=== PATIENT | female | born 1960 | race Caucasian/White ===

== ENCOUNTER 2016-12-18 10:23 | Day surgery (SDC) | payer MEDICAID ==
[2016-12-18] MEDS ORDERED: LIDOCAINE 1% 2 ML INJ ONE (10:59)
[2016-12-18] MEDS ORDERED: LIDOCAINE 2% 5 ML SDV ONE (11:44)
[2016-12-18] MEDS ORDERED: PROPOFOL/EMULSION 500 MG/50 ML BOTTLE IV ONE (11:44)
[2016-12-18] MEDS ORDERED: ONDANSETRON 4 MG/2 ML VIAL ONE (12:24)
--- NOTE | 2016-12-18 20:43 | GPN ---
[f rep st] PROCEDURE NOTE DATE OF PROCEDURE: 12/18/2016 PROCEDURE: Esophagogastroduodenoscopy with biopsy. INDICATION: The patient is a 56-year-old female with history of liver cirrhosis , who presents for evaluation of heartburn, as well as screening for esophageal varices. CONSENT: Risks, benefits, and alternatives of the procedure were discussed in great detail with the patient. The risk of infection, bleeding, perforation, and sedation were discussed. All questions were answered. Informed consent was obtained. MEDICATIONS: Propofol. Please see Anesthesiology record for details. ESTIMATED BLOOD LOSS: Insignificant. ESOPHAGOGASTRODUODENOSCOPY EXAMINATION: The Olympus upper endoscope was introduced into the mouth and advanced to the esophagus. The proximal and mid esophagus were normal in appearance. The patient was noted to have a slightly irregular Z-line which may represent short-segment Varghese's esophagus. Biopsies were taken. The patient was noted to have grade 1 esophageal varices with complete which were completely flattened with air insufflation. The stomach was entered and closely examined, including retroflexed view of the angularis, cardia, and fundus. The patient was noted to have a small hiatal hernia. The mucosa of the antrum and body was erythematous in a patchy distribution and biopsies were taken. In the duodenal bulb, 2 small duodenal polyps of 2-3mm were seen and removed by excisional biopsies. IMPRESSION: 1. Grade 1 esophageal varices. 2. Irregular Z-line status post biopsy. 3. Gastritis, status post biopsy. 4. Duodenal polyp status post biopsies. PLAN: 1. Follow up on biopsy results. 2. Advance diet. 3. Continue previous medications. 4. Repeat EGD in 1 year. /[id number]/MODL MTDD
== END 2016-12-18 13:38 | disposition home or self-care (01) ==
LOC: FSGY 10:23
PROVIDERS: ATTEND Internal Medicine Gastroenterology
PROC: 0DB68ZX Excision of Stomach, Via Natural or Artificial Opening Endoscopic, Diagnostic (ICD-10-PCS; principal; 2016-12-18 11:45)
PROC: 0DB98ZX Excision of Duodenum, Via Natural or Artificial Opening Endoscopic, Diagnostic (ICD-10-PCS; principal; 2016-12-18 11:45)
PROC: 0DB48ZX Excision of Esophagogastric Junction, Via Natural or Artificial Opening Endoscopic, Diagnostic (ICD-10-PCS; principal; 2016-12-18 11:45)
DX: K31.7 Polyp of stomach and duodenum (principal); K29.70 Gastritis, unspecified, without bleeding; K44.9 Diaphragmatic hernia without obstruction or gangrene; I85.00 Esophageal varices without bleeding; K70.30 Alcoholic cirrhosis of liver without ascites; I10 Essential (primary) hypertension; E03.9 Hypothyroidism, unspecified; K21.9 Gastro-esophageal reflux disease without esophagitis; F17.210 Nicotine dependence, cigarettes, uncomplicated
CPT/HCPCS: J2405; J2704

== ENCOUNTER 2017-03-24 12:58 | Inpatient (IN) | payer MEDICAID ==
[2017-03-24] MEDS ORDERED: NS 1,000 ML IV ONE (13:47)
--- NOTE | 2017-03-24 13:51 | EDPHY ---
H & P Stated Complaint: Dr. Nava sent pt to ED for abnl liver fn labs yesterday. pt feels slow. Time Seen by Provider: 03/24/17 13:14 HPI/ROS: CHIEF COMPLAINT: feeling slow HISTORY OF PRESENT ILLNESS: The patient is a 56-year-old female with a history of alcoholic cirrhosis who is followed by Dr. Bailey. She stopped drinking 10 weeks ago at his encouragement. Initially her LFTs were improving but she had them repeated yesterday and today Dr. Bailey called her and told her to come to the ER and get admitted. She has not had a fever. She does feel weak and states that she has fallen several times. She did hit her head this morning. She feels unstable. She has also had urinary incontinence for the last 3 weeks. She is slightly jaundice and has a variety of bruises. REVIEW OF SYSTEMS: Constitutional: denies: chills, fever, recent illness, recent injury EENTM: denies: blurred vision, double vision, nose congestion Respiratory: denies: cough, shortness of breath Cardiac: denies: chest pain, irregular heart rate, lightheadedness, palpitations Gastrointestinal/Abdominal: denies: abdominal pain, diarrhea, nausea, vomiting, blood streaked stools Genitourinary: denies: dysuria, frequency, hematuria, pain Musculoskeletal: denies: joint pain, muscle pain Skin: Jaundice Neurological: denies: headache, numbness, paresthesia, tingling, dizziness, weakness Hematologic/Lymphatic: denies: blood clots, easy bleeding, easy bruising Immunologic/allergic: denies: HIV/AIDS, transplant EXAM: GENERAL: Well-appearing, well-nourished and in no acute distress. HEAD: Atraumatic, normocephalic. EYES: Pupils equal round and reactive to light, extraocular movements intact, sclera icteric, conjunctiva are normal. ENT: TMs normal, nares patent, oropharynx clear without exudates. Moist mucous membranes. NECK: Normal range of motion, supple without lymphadenopathy or JVD. LUNGS: Breath sounds clear to auscultation bilaterally and equal. No wheezes rales or rhonchi. HEART: Regular rate and rhythm without murmurs, rubs or gallops. ABDOMEN: Soft, nontender, normoactive bowel sounds. No guarding, no rebound. No masses appreciated. BACK: No CVA tenderness, no spinal tenderness, step-offs or deformities EXTREMITIES: No asterixis, Normal range of motion, no pitting or edema. No clubbing or cyanosis. NEUROLOGICAL: Cranial nerves II through XII grossly intact. Normal speech, normal gait. 5/5 strength, normal movement in all extremities, normal sensation PSYCH: Normal mood, normal affect. SKIN: Jaundice with bruising Source: Patient Exam Limitations: No limitations - Personal History LMP (Females 10-55): Post Menopausal Current Tetanus/Diphtheria Vaccine: Yes Current Tetanus Diphtheria and Acellular Pertussis (TDAP): Yes Tetanus Vaccine Date: 2015 - Medical/Surgical History Hx Asthma: No Hx Chronic Respiratory Disease: No Hx Diabetes: No Hx Cardiac Disease: No Hx Renal Disease: No Hx Cirrhosis: Yes Hx Alcoholism: Yes Hx HIV/AIDS: No Hx Splenectomy or Spleen Trauma: No Other PMH: cirhossis, hypothyroid, depression, anxiety - Family History Significant Family History: No pertinent family hx - Social History Smoking Status: Heavy smoker Alcohol Use: Sober Drug Use: None Constitutional: Initial Vital Signs Temperature (C) 36.7 C 03/24/17 13:20 Heart Rate 66 03/24/17 13:20 Respiratory Rate 16 03/24/17 13:20 Blood Pressure 103/59 L 03/24/17 13:20 O2 Sat (%) 94 03/24/17 13:20 O2 Delivery Mode Room Air Allergies/Adverse Reactions: codeine Allergy (Verified 03/24/17 13:16) Vomiting Penicillins Allergy (Verified 03/24/17 13:16) Other-Enter Comments Home Medications: Medication Instructions Recorded Acamprosate Calcium [Campral 333 666 mg PO TID 03/24/17 MG (*)] Atenolol [Tenormin 100 mg (*)] 100 mg PO HS 03/24/17 Herbals/Supplements -Info Only 1 ea PO DAILY 03/24/17 Levothyroxine [Synthroid 75 mcg 75 mcg PO DAILY06 03/24/17 (*)] Naltrexone HCl 50 mg PO DAILY 03/24/17 Omeprazole 40 mg PO DAILY 03/24/17 Potassium Chloride [K-Tab ER] 20 meq PO DAILY 03/24/17 Prozac 40 mg 80 mg PO DAILY 03/24/17 Temazepam 7.5 mg PO HS 03/24/17 Medical Decision Making - Diagnostics EKG Interpretation: An EKG obtained and was read and documented in trace view. Please see trace view for full reading and report. Sinus rhythm, mild bradycardia, no acute ischemic changes Imaging Results: Imaging Impressions Head CT 03/24/17 13:48 Impression: 1. No acute intracranial abnormality seen. 2. Involutional changes/atrophy. This can be seen with chronic alcohol abuse. If symptoms worsen, additional imaging may be necessary. Findings discussed with the periodicals library assistant with Haja Harrington M.D. at 14:28 hour , 03/24/2017. Ankle X-Ray 03/24/17 13:57 Impression: Normal right ankle series. Suboptimal visualization of the base of the right fifth metatarsal. If the patient is tender in this region then consider additional foot imaging. Imaging: Discussed imaging studies w/ orthopedically impaired teacher Radiologist ED Course/Re-evaluation: 3:30 p.m. I discussed the case with Dr. Sanchez who will admit to medical service. He agrees with lactulose because of the patient's mental status Differential Diagnosis: Partial list of the Differential diagnosis considered include but were not limited to; dehydration, cirrhosis, hepatic encephalopathy and although unlikely based on the history and physical exam, I also considered sepsis, head injury, pneumonia, fracture. I discussed these differential diagnoses and the plan with the patient as well as the usual and expected course. The patient understands that the diagnosis is provisional and that in medicine we are not always correct and that further workup is often warranted. Usual and customary warnings were given. All of the patient's questions were answered. The patient was instructed to return to the emergency department should the symptoms at all worsen or return, otherwise to followup with the physician as we discussed. - Data Points Laboratory Results: Laboratory Results 03/24/17 13:50 03/24/17 13:50 03/24/17 03/24/17 03/24/17 15:45 14:50 13:50 WBC RBC Hgb Hct MCV MCH MCHC RDW Plt Count MPV Neut % (Auto) Lymph % (Auto) [place] % (Auto) Eos % (Auto) Baso % (Auto) Nucleat RBC Rel Count Absolute Neuts (auto) Absolute Lymphs (auto) Absolute Monos (auto) Absolute Eos (auto) Absolute Basos (auto) Absolute Nucleated RBC Immature Gran % Immature Gran # Platelet Estimate Polychromasia Hypochromasia Spherocytes PT INR APTT Sodium 138 mEq/L mEq/L (134-144) Potassium 3.2 mEq/L L mEq/L (3.5-5.2) Chloride 103 mEq/L mEq/L (97-110) Carbon Dioxide 19 mEq/l L mEq/l (22-31) Anion Gap 16 mEq/L mEq/L (8-16) BUN 4 mg/dL L mg/dL (7-23) Creatinine 0.7 mg/dL mg/dL (0.6-1.0) Estimated GFR > 60 Glucose 95 mg/dL mg/dL (70-100) Calcium 8.9 mg/dL mg/dL (8.5-10.4) Total Bilirubin 8.5 mg/dL H mg/dL (0.1-1.4) Conjugated Bilirubin 4.6 mg/dL H mg/dL (0.0-0.5) Unconjugated Bilirubin 3.9 mg/dL H mg/dL (0.0-1.1) AST 87 IU/L H IU/L (14-46) ALT 38 IU/L IU/L (9-52) Alkaline Phosphatase 179 IU/L H IU/L (38-126) Ammonia 33.0 uMOL/L H uMOL/L (9.0-30.0) Total Protein 8.2 g/dL g/dL (6.3-8.2) Albumin 3.2 g/dL L g/dL (3.5-5.0) Lipase 179 IU/L IU/L (23-300) Urine Color MELO Urine Appearance CLEAR Urine pH 6.0 (5.0-7.5) Ur Specific [place] 1.003 (1.002-1.030) Urine Protein NEGATIVE (NEGATIVE) Urine Ketones NEGATIVE (NEGATIVE) Urine Blood NEGATIVE (NEGATIVE) Urine Nitrate NEGATIVE (NEGATIVE) Urine Bilirubin NEGATIVE (NEGATIVE) Urine Urobilinogen 4.0 EU H EU (0.2-1.0) Ur Leukocyte Esterase NEGATIVE (NEGATIVE) Urine RBC 3-5 /hpf H /hpf (0-3) Urine WBC 1-3 /hpf /hpf (0-3) Ur Epithelial Cells NONE SEEN /lpf /lpf (NONE-1+) Urine Bacteria TRACE /hpf H /hpf (NONE SEEN) Urine Glucose NEGATIVE (NEGATIVE) 03/24/17 03/24/17 13:50 13:50 WBC 3.83 10^3/uL 10^3/uL (3.80-9.50) RBC 2.89 10^6/uL L 10^6/uL (4.18-5.33) Hgb 8.9 g/dL L g/dL (12.6-16.3) Hct 27.4 % L % (38.0-47.0) MCV 94.8 fL fL (81.5-99.8) MCH 30.8 pg pg (27.9-34.1) MCHC 32.5 g/dL g/dL (32.4-36.7) RDW 22.4 % H % (11.5-15.2) Plt Count 76 10^3/uL L 10^3/uL (150-400) MPV 10.2 fL fL (8.7-11.7) Neut % (Auto) 64.2 % % (39.3-74.2) Lymph % (Auto) 23.0 % % (15.0-45.0) [place] % (Auto) 9.4 % % (4.5-13.0) Eos % (Auto) 2.6 % % (0.6-7.6) Baso % (Auto) 0.8 % % (0.3-1.7) Nucleat RBC Rel Count 0.0 % % (0.0-0.2) Absolute Neuts (auto) 2.46 10^3/uL 10^3/uL (1.70-6.50) Absolute Lymphs (auto) 0.88 10^3/uL L 10^3/uL (1.00-3.00) Absolute Monos (auto) 0.36 10^3/uL 10^3/uL (0.30-0.80) Absolute Eos (auto) 0.10 10^3/uL 10^3/uL (0.03-0.40) Absolute Basos (auto) 0.03 10^3/uL 10^3/uL (0.02-0.10) Absolute Nucleated RBC 0.00 10^3/uL 10^3/uL (0-0.01) Immature Gran % 0.0 % % (0.0-1.1) Immature Gran # 0.00 10^3/uL 10^3/uL (0.00-0.10) Platelet Estimate DECREASED L (ADEQ) Polychromasia 1+ H Hypochromasia 1+ H Spherocytes 1+ H PT 25.5 SEC H SEC (12.0-15.0) INR 2.30 H (0.83-1.16) APTT 45.6 SEC H SEC (23.0-38.0) Sodium Potassium Chloride Carbon Dioxide Anion Gap BUN Creatinine Estimated GFR Glucose Calcium Total Bilirubin Conjugated Bilirubin Unconjugated Bilirubin AST ALT Alkaline Phosphatase Ammonia Total Protein Albumin Lipase Urine Color Urine Appearance Urine pH Ur Specific [place] Urine Protein Urine Ketones Urine Blood Urine Nitrate Urine Bilirubin Urine Urobilinogen Ur Leukocyte Esterase Urine RBC Urine WBC Ur Epithelial Cells Urine Bacteria Urine Glucose Medications Given: Discontinued Medications Sodium Chloride (Ns) 1,000 mls @ 0 mls/hr IV EDNOW ONE; Wide Open PRN Reason: Protocol Stop: 03/24/17 13:48 Last Admin: 03/24/17 13:55 Dose: 1,000 mls Phytonadione 10 mg/ Sodium (Chloride) 51 mls @ 102 mls/hr IV ONCE ONE Stop: 03/24/17 17:07 Last Admin: 03/24/17 17:43 Dose: 51 mls Lactulose (Cephulac) 20 gm PO EDNOW ONE Stop: 03/24/17 15:38 Last Admin: 03/24/17 15:58 Dose: 20 gm Departure - Departure Disposition: [facility] Inpatient Acute Clinical Impression: Cirrhosis of liver Qualifiers: Hepatic cirrhosis type: alcoholic cirrhosis Ascites presence: without ascites Qualified Code(s): K70.30 - Alcoholic cirrhosis of liver without ascites Altered mental status, unspecified Qualifiers: Altered mental status type: disorientation Qualified Code(s): R41.0 - Disorientation, unspecified Condition: Fair
[2017-03-24 14:01] LABS: ADD DIFF? NO; ADD MORPH? YES; ADD SCAN? NO; ATYPICAL LYMPHOCYTE FLAG 10 (0-99); FRAGMENT RBC FLAG 20 (0-99); HEMATOCRIT 27.4 % (38.0-47.0); HEMOGLOBIN 8.9 g/dL (12.6-16.3); LEFT SHIFT FLG 0 (0-99); LIPEMIA HEMOLYSIS FLAG 80 (0-99); MEAN CELL HEMOGLOBIN 30.8 pg (27.9-34.1); MEAN CELL HEMOGLOBIN CONCENTR. 32.5 g/dL (32.4-36.7); MEAN CELL VOLUME 94.8 fL (81.5-99.8); MEAN PLATELET VOLUME 10.2 fL (8.7-11.7); PLATELET CLUMPS FLAG 0 (0-99); PLATELET COUNT 76 10^3/uL (150-400); RED BLOOD CELL COUNT 2.89 10^6/uL (4.18-5.33)
[2017-03-24 14:02] LABS: RED CELL DISTRIBUTION WIDTH 22.4 % (11.5-15.2)
[2017-03-24 14:10] LABS: ALANINE AMINOTRANSFERASE 38 IU/L (9-52); ALBUMIN 3.2 g/dL (3.5-5.0); ALKALINE PHOSPHATASE 179 IU/L (38-126); ANION GAP 16 mEq/L (8-16); APTT 45.6 SEC (23.0-38.0); ASPARTATE AMINOTRANSFERASE 87 IU/L (14-46); BILIRUBIN,TOTAL 8.5 mg/dL (0.1-1.4); BILIRUBIN-CONJUGATED 4.6 mg/dL (0.0-0.5); BILIRUBIN-UNCONJUGATED 3.9 mg/dL (0.0-1.1); CALCIUM 8.9 mg/dL (8.5-10.4); CARBON DIOXIDE 19 mEq/l (22-31); CHLORIDE 103 mEq/L (97-110); CREATININE 0.7 mg/dL (0.6-1.0); GLOMERULAR FILTRATION RATE > 60; GLUCOSE 95 mg/dL (70-100); INR 2.3 (0.83-1.16); POTASSIUM 3.2 mEq/L (3.5-5.2); PROTIME(PATIENT) 25.5 SEC (12.0-15.0); SODIUM 138 mEq/L (134-144); TOTAL PROTEIN 8.2 g/dL (6.3-8.2)
[2017-03-24 14:30] LABS: HYPOCHROMIA 1+; PLATELET ESTIMATE DECREASED (ADEQ); SPHEROCYTES 1+
[2017-03-24 14:31] LABS: POLYCHROMASIA 1+
--- NOTE | 2017-03-24 15:16 | CPEKG ---
Heart Rate: 57 RR Interval: 1053 P-R Interval: 176 QRSD Interval: 108 QT Interval: 544 QTC Interval: 530 P Arcade: 52 QRS Arcade: -4 T Wave Arcade: -2 EKG Severity - ABNORMAL ECG - EKG Impression: SINUS RHYTHM EKG Impression: BORDERLINE R WAVE PROGRESSION, ANTERIOR LEADS EKG Impression: NONSPECIFIC T ABNORMALITIES, LATERAL LEADS EKG Impression: PROLONGED QT INTERVAL Electronically Signed By: Haja Harrington 24-Mar-2017 15:24:27
[2017-03-24] MEDS ORDERED: LACTULOSE 20 GM/30 ML UDCUP PO ONE (15:37)
[2017-03-24 16:11] LABS: COLOR AMBER; LEUKOCYTE ESTERASE,URINE NEGATIVE (NEGATIVE); NITRITE,URINE NEGATIVE (NEGATIVE)
[2017-03-24 16:18] LABS: BACTERIA TRACE /hpf (NONE SEEN)
[2017-03-24] MEDS ORDERED: ONDANSETRON 4 MG/2 ML VIAL IVP PRN (16:30)
[2017-03-24] MEDS ORDERED: ONDANSETRON DISINTEGRATING 4 MG TAB PO PRN (16:30)
[2017-03-24] MEDS ORDERED: PHYTONADIONE 10 MG in NS 50 ML IV ONE (16:38)
--- NOTE | 2017-03-24 17:22 | GHP ---
[f rep st] HISTORY AND PHYSICAL DATE OF ADMISSION: 03/24/2017 The patient is a pleasant 56-year-old female with history of alcoholic cirrhosis, who quit drinking 10 weeks ago. She saw her machine oiler, Dr. Nava, yesterday, who laurent some routine labs and call ed her back today to return to the emergency department for admission. These labs were notable for having an ammonia level at 63. She does not take lactulose or rifaximin for hepatic encephalopathy prophylaxis. 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 She has had some falls . She has had gait instability. She has had hematuria and urinary incontinence. She has not had f ever, chills, cough. She has not had chest pain or shortness of breath. She maintains abstinence f rom alcohol. She has dabbled in marijuana but does not particularly enjoy it. While she has been p rescribed a lot of new medicines, she denies other recreational drugs. She has not particularly not iced an increased girth in her abdomen. She has had some lower extremity swelling but a lot of this is related to a right ankle sprain. It sounds like she has had a numerous falls and countless brui ses and has even fallen down the stairs backwards. REVIEW OF SYSTEMS: Complete 10-point Review of Systems conducted and negative except as noted in th e HPI. PAST MEDICAL HISTORY: 1. Alcoholism in remission. 2. Alcoholic liver disease. ALLERGIES: Codeine and penicillin. HOME MEDICATIONS: Atenolol, Campral, X-Cam, fluoxetine, levothyroxine, naltrexone, omeprazole, pota ssium, temazepam. SOCIAL HISTORY: Alcohol as in the HPI. Drugs in the HPI. Nonsmoker. 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 FAMILY HISTORY: Reviewed and unremarkable. PHYSICAL EXAMINATION: VITAL SIGNS: Temp 36.7, blood pressure 103/59, pulse 66, breathing 16 times a minute, 94% on room air. GENERAL: No acute distress. HEENT: Sclerae anicteric. Oropharynx honey ar. Mucous membranes are moist. NECK: Supple without lymphadenopathy or JVD. LUNGS: Clear to au scultation bilaterally. HEART: S1, S2. Not tachycardic. ABDOMEN: Soft. I do not believe that t here is a fluid wave. LOWER EXTREMITIES: 1+ edema on the left and 2+ on the right. There is some ankle tenderness. SKIN: Without rash. NEUROLOGIC: No asterixis. Otherwise nonfocal. LABS: Her INR is 2.3. White count 3.8, hematocrit 27.4[place] [address], this is about where s he has been. Sodium 138, potassium 3.2, chloride 103, bicarb 19, BUN 4, creatinine 0.7. Total bili paredes is 8.5; conjugated 4.6, unconjugated 3.9. AST is 87, alk phosphatase 179. Ammonia is 33 toda y. Albumin is 3.2. Lipase 179. UA is pending. Noncontrast head CT shows atrophy with no acute lesions. EKG shows sinus in 50s with normal axis an d intervals. No ST or T-wave changes. Ankle x-ray shows no fracture. I discussed the case Dr. Haja Harrington. ASSESSMENT AND PLAN: This is a 56-year-old female with alcoholic cirrhosis, who presents with confu ralph and worsening labs. 1. Cirrhosis. This is concerning for possible portal vein thrombosis. I will go ahead and do an u ltrasound with Dopplers to evaluate for that. The patient does not have asterixis but I think it is reasonable to treat her for hepatic encephalopathy. She does not have significant ascites on exam, so while I have considered spontaneous bacterial peritonitis, will wait for the ultrasound results and see if there is any significant ascites. I do not think she is intoxicated. Will also evaluate for intercurrent medical illness, such as an infection. We will continue her medications when they have been reconciled. 2. Intercurrent medical illness. UA is pending. She has a very clear chest exam, so I do not thin k pneumonia is at play. She has a soft abdomen, so I am less concerned about an intraabdominal proc ess but I will go ahead and draw some blood cultures. 3. Confusion with falls. I think the patient may need an MRI to evaluate her cerebellum, which is poorly seen on the noncontrast CT but I think for now, we will start with the workup as detailed abo ve and follow. 4. Coagulopathy. This is indicative of fairly significant cirrhosis. We will give her vitamin K. 5. Thrombocytopenia, stable. No signs of bleeding. 6. Leukopenia, consistent with cirrhosis. 7. Prophylaxis. Pharmacologic prophylaxis has a relative contraindication. Will follow. DISPOSITION: Inpatient status. /[id number]/MODL
[2017-03-24] MEDS: ATENOLOL 50 MG TAB PO SCH (21:11)
[2017-03-24] MEDS: LACTULOSE 20 GM/30 ML UDCUP PO SCH (21:12)
[2017-03-24] MEDS: ACAMPROSATE CALCIUM 333 MG TAB PO SCH (21:12)
[2017-03-24] MEDS ORDERED: TEMAZEPAM 15 MG CAP PO PRN (23:01)
[2017-03-25 04:30] LABS: % IMMATURE GRANULYOCYTES 0.3 % (0.0-1.1); ABSOLUTE IMMATURE GRANULOCYTES 0.01 10^3/uL (0.00-0.10); ADD DIFF? NO; ADD MORPH? YES; ADD SCAN? NO; ATYPICAL LYMPHOCYTE FLAG 30 (0-99); FRAGMENT RBC FLAG 20 (0-99); HEMATOCRIT 21.3 % (38.0-47.0); LEFT SHIFT FLG 0 (0-99); LIPEMIA HEMOLYSIS FLAG 80 (0-99); MEAN CELL HEMOGLOBIN CONCENTR. 32.9 g/dL (32.4-36.7); MEAN CELL VOLUME 94.2 fL (81.5-99.8); PLATELET CLUMPS FLAG 10 (0-99); PLATELET COUNT 56 10^3/uL (150-400); RED BLOOD CELL COUNT 2.26 10^6/uL (4.18-5.33)
[2017-03-25 04:34] LABS: RED CELL DISTRIBUTION WIDTH 22.3 % (11.5-15.2)
[2017-03-25 04:45] LABS: ALANINE AMINOTRANSFERASE 38 IU/L (9-52); ALBUMIN 2.3 g/dL (3.5-5.0); ALKALINE PHOSPHATASE 165 IU/L (38-126); ANION GAP 8 mEq/L (8-16); ASPARTATE AMINOTRANSFERASE 73 IU/L (14-46); CALCIUM 8.1 mg/dL (8.5-10.4); CARBON DIOXIDE 19 mEq/l (22-31); CHLORIDE 109 mEq/L (97-110); CREATININE 0.6 mg/dL (0.6-1.0); GLOMERULAR FILTRATION RATE > 60; GLUCOSE 96 mg/dL (70-100); POTASSIUM 3.5 mEq/L (3.5-5.2); SODIUM 136 mEq/L (134-144); TOTAL PROTEIN 6.5 g/dL (6.3-8.2)
[2017-03-25 05:11] LABS: HYPOCHROMIA 1+; PLATELET ESTIMATE DECREASED (ADEQ); POLYCHROMASIA 1+; SPHEROCYTES 1+
[2017-03-25 05:17] LABS: BILIRUBIN-CONJUGATED 3.7 mg/dL (0.0-0.5); BILIRUBIN-UNCONJUGATED 2.3 mg/dL (0.0-1.1)
[2017-03-25] MEDS: LEVOTHYROXINE 75 MCG TAB PO SCH (05:26)
[2017-03-25] MEDS ORDERED: Herbals/Supplements -Info Only PO SCH (09:00)
[2017-03-25] MEDS: FLUoxetine 20 MG CAP PO SCH (10:45)
[2017-03-25] MEDS: LACTULOSE 20 GM/30 ML UDCUP PO SCH ×3 (10:45→20:20)
--- NOTE | 2017-03-25 10:46 | HOSPPROG ---
Hospitalist Progress Note Assessment/Plan: DIAGNOSES: -Acute hepatic encephalopathy -Severe gait instability with multiple falls -Ankle sprain related to above on the right -severe anemia, most likely due to her chronic liver disease, however will check stool for possible Hemoccult to be certain no GI bleeding -Chronic alcoholic liver disease with cirrhosis suspected, no ascites present; despite she reports 10 weeks of abstinence there is still some mild alcoholic hepatitis present -pancytopenia and coagulopathy from her liver disease In terms of her encephalopathy she remains fairly encephalopathic today. Her ammonia level has decreased from this 63 originally measured in clinic 2 days ago. The cause of her acute encephalopathy at this time is not obvious outside her chronic liver disease being present. One other possibility could be if she were having any GI bleeding this would aggravate her encephalopathy The in terms of the gait instability the encephalopathy is clearly aggravating this, however it sounds like she has been falling quite a bit at home for a long time and she describes falling down stairways multiple times. I wonder if she may have either some abnormality related to thiamine deficiencies over time , or some alcohol-related cerebellar atrophy or injury, or some other cause of gait instability. PLANS: -Continue to avoid all medicines with the neurologic side effects -Continue lactulose and follow ammonia level -check stool hemoccults -Try and help her with sleep wake cycle using daylight, as well as melatonin at night; increse activity as able, encourage diet -Fall risk precautions, physical occupational therapy -Check orthostatic vital signs as she complains of lightheadedness with standing -MRI scan to evaluate cerebellum -Thiamin therapy SUBJECTIVE: today she says she still feels "dingy" and is having word-finding difficulty, says her balance feels very poor although she states this is very chronic and she has a lot of falls at home She denies headache, abdominal pain, nausea, and has been eating okay No fever symptoms, respiratory symptoms, urinary symptoms OBJECTIVE Vitals reviewed: blood pressure is a bit on the low side as is typical for folks with liver disease, no fevers and vitals otherwise stable Exam: awake, mildly groggy, mildly disoriented, very slow in speech, some word- finding abnormalities, mild asterixis, no focal weakness, marked gait instability appear cerebellar skin warm dry with mild jaundice resps not labored lungs clear BSs heart regular abd soft nondistended nontender, bowel sounds present limbs warm, mild bilateral leg edema iv site ok Laboratory data: bilirubin down slightly from yesterday, potassium better Anemia is worse today, this could be dilutional from IV fluids given in the ER Objective: Vital Signs Temp Pulse Resp BP Pulse Ox 37.0 C 68 14 87/54 L 92 03/25/17 08:00 03/25/17 08:00 03/25/17 08:00 03/25/17 10:10 03/25/17 08:00 Laboratory Results 03/25/17 04:15 03/25/17 04:15 03/24/17 03/25/17 03/26/17 06:59 06:59 06:59 Intake Total 1000 Balance 1000 PT 25.5 SEC (12.0-15.0) H 03/24/17 13:50 INR 2.30 (0.83-1.16) H 03/24/17 13:50 ICD10 Worksheet Patient Problems: Problems Problem Status Onset Altered mental status, unspecified Acute Cirrhosis of liver Acute
[2017-03-25] MEDS: NALTREXONE HCL 50 MG TAB PO SCH (10:49)
[2017-03-25] MEDS: ACAMPROSATE CALCIUM 333 MG TAB PO SCH ×3 (10:49→20:20)
[2017-03-25] MEDS: POTASSIUM CL 20 MEQ TAB PO SCH (10:51)
[2017-03-25] MEDS: PANTOPRAZOLE SODIUM 40 MG TAB PO SCH (10:51)
[2017-03-25] MEDS: MELATONIN 3 MG TAB PO SCH (20:20)
[2017-03-25] MEDS: ATENOLOL 50 MG TAB PO SCH (22:30)
[2017-03-26 04:36] LABS: % IMMATURE GRANULYOCYTES 0.3 % (0.0-1.1); ABSOLUTE IMMATURE GRANULOCYTES 0.01 10^3/uL (0.00-0.10); ADD DIFF? NO; ADD MORPH? YES; ADD SCAN? NO; ATYPICAL LYMPHOCYTE FLAG 0 (0-99); FRAGMENT RBC FLAG 20 (0-99); HEMATOCRIT 21.5 % (38.0-47.0); LEFT SHIFT FLG 0 (0-99); LIPEMIA HEMOLYSIS FLAG 80 (0-99); MEAN CELL HEMOGLOBIN 30.5 pg (27.9-34.1); MEAN CELL HEMOGLOBIN CONCENTR. 32.1 g/dL (32.4-36.7); MEAN CELL VOLUME 95.1 fL (81.5-99.8); MEAN PLATELET VOLUME 11.1 fL (8.7-11.7); PLATELET CLUMPS FLAG 10 (0-99); PLATELET COUNT 51 10^3/uL (150-400); RED BLOOD CELL COUNT 2.26 10^6/uL (4.18-5.33)
[2017-03-26 04:43] LABS: HEMOGLOBIN 6.9 g/dL (12.6-16.3); RED CELL DISTRIBUTION WIDTH 22.1 % (11.5-15.2)
[2017-03-26 05:04] LABS: ALANINE AMINOTRANSFERASE 39 IU/L (9-52); ALBUMIN 2.2 g/dL (3.5-5.0); ALKALINE PHOSPHATASE 156 IU/L (38-126); ANION GAP 8 mEq/L (8-16); ASPARTATE AMINOTRANSFERASE 68 IU/L (14-46); BILIRUBIN,TOTAL 4.8 mg/dL (0.1-1.4); CALCIUM 7.9 mg/dL (8.5-10.4); CARBON DIOXIDE 20 mEq/l (22-31); CHLORIDE 108 mEq/L (97-110); CREATININE 0.5 mg/dL (0.6-1.0); GLOMERULAR FILTRATION RATE > 60; GLUCOSE 89 mg/dL (70-100); POTASSIUM 3.5 mEq/L (3.5-5.2); SODIUM 136 mEq/L (134-144); TOTAL PROTEIN 6.1 g/dL (6.3-8.2)
[2017-03-26] MEDS: LEVOTHYROXINE 75 MCG TAB PO SCH (05:04)
[2017-03-26 05:10] LABS: BILIRUBIN-CONJUGATED 2.9 mg/dL (0.0-0.5); BILIRUBIN-UNCONJUGATED 1.9 mg/dL (0.0-1.1)
[2017-03-26 05:26] LABS: HYPOCHROMIA 1+; PLATELET ESTIMATE DECREASED (ADEQ); POLYCHROMASIA 1+; SPHEROCYTES 1+
[2017-03-26] MEDS: POTASSIUM CL 20 MEQ TAB PO SCH (09:44)
[2017-03-26] MEDS: FLUoxetine 20 MG CAP PO SCH (09:44)
[2017-03-26] MEDS: PANTOPRAZOLE SODIUM 40 MG TAB PO SCH (09:45)
[2017-03-26] MEDS: ACAMPROSATE CALCIUM 333 MG TAB PO SCH ×3 (09:45→21:27)
[2017-03-26] MEDS: NALTREXONE HCL 50 MG TAB PO SCH (09:45)
[2017-03-26] MEDS: LACTULOSE 20 GM/30 ML UDCUP PO SCH ×3 (09:45→21:27)
--- NOTE | 2017-03-26 10:16 | HOSPPROG ---
Hospitalist Progress Note Assessment/Plan: DIAGNOSES: -Acute hepatic encephalopathy -Severe gait instability with multiple falls -Ankle sprain related to above on the right -severe anemia, most likely due to her chronic liver disease, however will check stool for possible Hemoccult to be certain no GI bleeding -Chronic alcoholic liver disease with cirrhosis suspected, no ascites present; despite she reports 10 weeks of abstinence there is still some mild alcoholic hepatitis present with high AST and bili -pancytopenia and coagulopathy from her liver disease She continues to have improvement in her mentation and her gait/balance, but still needs another 1-2 days probably to be safe at home (lives alone, has stairs, judgement better but still a bit off) PLANS: -Continue to avoid all medicines with the neurologic side effects -Continue lactulose and follow ammonia level; she should be discharged on chronic lactulose treatment -await 2nd 3rd stool hemoccults -Try and help her with sleep wake cycle using daylight, as well as melatonin at night; increse activity as able, encourage diet -Fall risk precautions, physical occupational therapy -Thiamin therapy SUBJECTIVE: Feels more aware today and less confused though not back to 100%. She has got up to the commode a couple of times and says she feels more steady on her feet but is still not entirely study and is afraid she would have great difficulty on stairs which she has at home. She is using a walker here. OBJECTIVE Vitals reviewed: blood pressure remains low but stable, otherwise normal vitals without fever Exam: more alert today, and better oriented, converses much more easily skin warm dry jaundice is no longer visible on my exam today resps not labored lungs clear BSs heart regular abd soft nondistended nontender, bowel sounds present limbs warm, mild bilateral leg edema iv site ok Laboratory data: bilirubin and ammonia continue to improve hemoglobin stable remains severely low, with normal MCV and the 1st Hemoccult tested her stool is negative Objective: Vital Signs Temp Pulse Resp BP Pulse Ox 36.7 C 64 16 92/48 L 92 03/26/17 08:00 03/26/17 08:00 03/26/17 08:00 03/26/17 08:00 03/26/17 08:00 Laboratory Results 03/26/17 04:22 03/26/17 04:22 03/25/17 03/26/17 03/27/17 06:59 06:59 06:59 Intake Total 1000 Balance 1000 PT 25.5 SEC (12.0-15.0) H 03/24/17 13:50 INR 2.30 (0.83-1.16) H 03/24/17 13:50 ICD10 Worksheet Patient Problems: Problems Problem Status Onset Altered mental status, unspecified Acute Cirrhosis of liver Acute
[2017-03-26] MEDS: ACETAMINOPHEN 325 MG TAB PO PRN (13:29)
[2017-03-26] MEDS: MELATONIN 3 MG TAB PO SCH (21:27)
[2017-03-26] MEDS: ATENOLOL 50 MG TAB PO SCH (21:28)
[2017-03-27 04:38] LABS: ADD DIFF? NO; ADD MORPH? YES; ADD SCAN? NO; FRAGMENT RBC FLAG 20 (0-99); HEMOGLOBIN 7.2 g/dL (12.6-16.3); LEFT SHIFT FLG 0 (0-99); LIPEMIA HEMOLYSIS FLAG 80 (0-99); MEAN CELL VOLUME 94.3 fL (81.5-99.8)
[2017-03-27 04:41] LABS: ATYPICAL LYMPHOCYTE FLAG 10 (0-99); HEMATOCRIT 21.6 % (38.0-47.0); MEAN CELL HEMOGLOBIN 31.4 pg (27.9-34.1); MEAN CELL HEMOGLOBIN CONCENTR. 33.3 g/dL (32.4-36.7); PLATELET CLUMPS FLAG 10 (0-99); RED BLOOD CELL COUNT 2.29 10^6/uL (4.18-5.33)
[2017-03-27 04:42] LABS: PLATELET COUNT 48 10^3/uL (150-400)
[2017-03-27 05:15] LABS: ACANTHOCYTES 1+; HYPOCHROMIA 1+; MICROCYTES 1+; PLATELET ESTIMATE DECREASED (ADEQ)
[2017-03-27] MEDS: LEVOTHYROXINE 75 MCG TAB PO SCH (05:41)
[2017-03-27 06:16] LABS: ALANINE AMINOTRANSFERASE 35 IU/L (9-52); ALBUMIN 2.2 g/dL (3.5-5.0); ALKALINE PHOSPHATASE 159 IU/L (38-126); ANION GAP 10 mEq/L (8-16); ASPARTATE AMINOTRANSFERASE 64 IU/L (14-46); BILIRUBIN,TOTAL 4.9 mg/dL (0.1-1.4); CALCIUM 8.3 mg/dL (8.5-10.4); CARBON DIOXIDE 19 mEq/l (22-31); CHLORIDE 107 mEq/L (97-110); CREATININE 0.6 mg/dL (0.6-1.0); GLOMERULAR FILTRATION RATE > 60; GLUCOSE 85 mg/dL (70-100); POTASSIUM 3.6 mEq/L (3.5-5.2); SODIUM 136 mEq/L (134-144); TOTAL PROTEIN 6.3 g/dL (6.3-8.2)
[2017-03-27 06:25] LABS: BILIRUBIN-CONJUGATED 2.7 mg/dL (0.0-0.5); BILIRUBIN-UNCONJUGATED 2.2 mg/dL (0.0-1.1)
[2017-03-27] MEDS: PANTOPRAZOLE SODIUM 40 MG TAB PO SCH (09:40)
[2017-03-27] MEDS: FLUoxetine 20 MG CAP PO SCH (09:40)
[2017-03-27] MEDS: ACAMPROSATE CALCIUM 333 MG TAB PO SCH ×3 (09:41→21:27)
[2017-03-27] MEDS: NALTREXONE HCL 50 MG TAB PO SCH (09:41)
[2017-03-27] MEDS: POTASSIUM CL 20 MEQ TAB PO SCH (09:41)
[2017-03-27] MEDS: LACTULOSE 20 GM/30 ML UDCUP PO SCH ×3 (09:41→21:27)
--- NOTE | 2017-03-27 14:49 | HOSPPROG ---
Hospitalist Progress Note Assessment/Plan: 56-year-old female admitted with an encephalopathy presumed to be an alcoholic encephalopathy secondary to hepatic failure and several falls. She lives alone and has only a cat. At this point she seems incapable of caring for herself. Patient is new to me today -acute hepatic encephalopathy with an elevated ammonia level on admission which is now normal after being placed on lactulose. She is moving her bowels easily and her mental status is improving although she does not have a realistic outlook on her capacity to function for herself at this time. -gait instability with a history of multiple falls and reported right ankle sprain. Her ambulation at this point is impaired. -severe pancytopenia secondary to chronic liver disease. Hemoccults were positive and her hemoglobin now is 7.2. Should this fall below 7 transfusions are indicated. She is showing no signs of cardiovascular compromise. -chronic alcoholic liver disease: This is present with evidence of cirrhosis but no ascites. Patient reports 10 weeks of abstinence low there remains an elevated AST and bilirubin with a coagulopathy and elevated INR. Plan: Continue lactulose therapy and will continue this as an outpatient. We will follow her hemoccults and transfuse if her hemoglobin falls below 7. She continues to be a fall risk and needs a bed monitor. Patient is working with PT and OT although her progress has been slow. Today I do not see that the patient could function on her own safely as she remains a fall risk. Disposition: Dated a evaluation and at this time I would recommend an SNF placement. I discussed this with the patient and she is reluctant to do this although she has unrealistic of her capacities at that time. Subjective: Reports she is feeling improved and does not understand why she needs to be on a bed monitor. She does admit that she has fallen numerous times and admits that she is unsteady he denies having chest pain shortness of breath or abdominal pain but does report she has some bloating. She is moving her bowels and denies hematemesis or black tarry stools. Objective: Vital Signs Temp Pulse Resp BP Pulse Ox 36.6 C 66 18 96/52 L 95 03/27/17 08:00 03/27/17 08:00 03/27/17 08:00 03/27/17 08:00 03/27/17 08:00 Laboratory Results 03/27/17 04:21 03/27/17 04:21 03/26/17 03/27/17 03/28/17 05:59 05:59 05:59 Intake Total 1000 Output Total 500 Balance 500 PT 25.5 SEC (12.0-15.0) H 03/24/17 13:50 INR 2.30 (0.83-1.16) H 03/24/17 13:50 Laboratory Tests 03/24/17 03/24/17 03/25/17 13:50 13:50 04:15 WBC 2.94 L Hgb 8.9 L 7.0 L Absolute Neuts (auto) Platelet Estimate DECREASED L INR 2.30 H Calcium AST Albumin Stool Occult Bld Scrn 03/25/17 03/26/17 03/26/17 04:15 04:22 04:22 WBC Hgb 6.9 L Absolute Neuts (auto) Platelet Estimate INR Calcium 8.1 L AST 73 H 68 H Albumin 2.3 L Stool Occult Bld Scrn 03/26/17 03/27/17 03/27/17 21:18 04:21 04:21 WBC 2.42 L Hgb 7.2 L Absolute Neuts (auto) 1.45 L Platelet Estimate DECREASED L INR Calcium 8.3 L AST 64 H Albumin 2.2 L Stool Occult Bld Scrn POSITIVE H 03/27/17 05:00 WBC Hgb Absolute Neuts (auto) Platelet Estimate INR Calcium AST Albumin Stool Occult Bld Scrn POSITIVE H The patient showing AA pancytopenia with neutropenia anemia and thrombocytopenia probably secondary to her liver disease. Hemoglobin has been following and hemoccults are positive consistent with I am going to slow GI bleed. Patient is not orthostatic. - Time Spent With Patient Time Spent with Patient: greater than 35 minutes Time Spent with Patient: Greater than 35 minutes spent on this patients care, greater than 50% of time spent counseling, educating, and coordinating care regarding the above mentioned plan. - Pending Discharge Pending Discharge Within 24 Hours: No Pending Discharge Within 48 Hours: Yes Pending Discharge Date: 03/29/17 Pending Discharge Time: 11:00 - Physical Exam Constitutional: no apparent distress Eyes: PERRL, icteric sclera Ears, Nose, Mouth, Throat: moist mucous membranes, hearing normal, ears appear normal, no oral mucosal ulcers Cardiovascular: regular rate and rhythym, systolic murmur Respiratory: no respiratory distress, no rales or rhonchi, clear to auscultation Gastrointestinal: normoactive bowel sounds, soft, non-tender abdomen, distension Genitourinary: no bladder fullness Skin: warm Musculoskeletal: abnormal gait, generalized weakness Neurologic: AAOx3, CN II-XII Intact Psychiatric: interacting appropriately, poor insight, poor judgement ICD10 Worksheet Patient Problems: Problems Problem Status Onset Altered mental status, unspecified Acute Cirrhosis of liver Acute
[2017-03-27 16:25] LABS: HEMATOCRIT 23.7 % (38.0-47.0); HEMOGLOBIN 8.1 g/dL (12.6-16.3)
[2017-03-27] MEDS: MELATONIN 3 MG TAB PO SCH (21:27)
[2017-03-27] MEDS: ATENOLOL 50 MG TAB PO SCH (21:31)
[2017-03-28 04:22] LABS: ADD DIFF? NO; ADD MORPH? YES; ADD SCAN? NO; ATYPICAL LYMPHOCYTE FLAG 20 (0-99); FRAGMENT RBC FLAG 20 (0-99); LEFT SHIFT FLG 0 (0-99); LIPEMIA HEMOLYSIS FLAG 80 (0-99); MEAN CELL HEMOGLOBIN 31.5 pg (27.9-34.1); MEAN CELL HEMOGLOBIN CONCENTR. 33.3 g/dL (32.4-36.7); MEAN CELL VOLUME 94.6 fL (81.5-99.8); MEAN PLATELET VOLUME 11.2 fL (8.7-11.7); PLATELET CLUMPS FLAG 0 (0-99); RED BLOOD CELL COUNT 2.22 10^6/uL (4.18-5.33)
[2017-03-28 04:24] LABS: RED CELL DISTRIBUTION WIDTH 22.2 % (11.5-15.2)
[2017-03-28 04:25] LABS: PLATELET COUNT 49 10^3/uL (150-400)
[2017-03-28 04:36] LABS: ANION GAP 8 mEq/L (8-16); CALCIUM 8.3 mg/dL (8.5-10.4); CARBON DIOXIDE 20 mEq/l (22-31); CHLORIDE 109 mEq/L (97-110); CREATININE 0.5 mg/dL (0.6-1.0); GLOMERULAR FILTRATION RATE > 60; GLUCOSE 85 mg/dL (70-100); POTASSIUM 3.7 mEq/L (3.5-5.2); SODIUM 137 mEq/L (134-144)
[2017-03-28 04:49] LABS: HYPOCHROMIA 1+; PLATELET ESTIMATE DECREASED (ADEQ); POLYCHROMASIA 1+
[2017-03-28] MEDS: LEVOTHYROXINE 75 MCG TAB PO SCH (05:25)
[2017-03-28] MEDS: FLUoxetine 20 MG CAP PO SCH (08:06)
[2017-03-28] MEDS: ACETAMINOPHEN 325 MG TAB PO PRN (08:07)
[2017-03-28] MEDS: POTASSIUM CL 20 MEQ TAB PO SCH (08:07)
[2017-03-28] MEDS: PANTOPRAZOLE SODIUM 40 MG TAB PO SCH (08:08)
[2017-03-28] MEDS: LACTULOSE 20 GM/30 ML UDCUP PO SCH ×3 (08:08→22:00)
[2017-03-28] MEDS: ACAMPROSATE CALCIUM 333 MG TAB PO SCH ×3 (08:08→21:59)
[2017-03-28] MEDS: NALTREXONE HCL 50 MG TAB PO SCH (08:08)
[2017-03-28] MEDS ORDERED: GOLYTELY 4000 ML BTL PO ONE (12:39)
[2017-03-28] MEDS ORDERED: PHYTONADIONE 10 MG/ML AMP SC ONE (13:13)
[2017-03-28] MEDS ORDERED: PANTOPRAZOLE SODIUM 40 MG in NS 100 ML IV SCH (13:30)
--- NOTE | 2017-03-28 13:42 | HOSPPROG ---
Hospitalist Progress Note Assessment/Plan: 56-year-old female admitted with an encephalopathy presumed to be an alcoholic encephalopathy secondary to hepatic failure and several falls. She lives alone and has only a cat. At this point she seems incapable of caring for herself. Today the patient's hemoglobin is following to hemoglobin of 7.0. Stool is guaiac positive. -acute hepatic encephalopathy with an elevated ammonia level on admission which is now normal after being placed on lactulose. She is moving her bowels easily and her mental status is improving although she does not have a realistic outlook on her capacity to function for herself at this time. She is alert but remains unrealistic about her situation. -acute anemia presumed secondary to GI bleeding: Hemoglobin today is 7 plan for transfusion of PRBC x1, and a GI consult for possible endoscopies. She had an endoscopy 2 months ago he had may need both a day EGD and a colonoscopy to find the source of bleeding. -gait instability with a history of multiple falls and reported right ankle sprain. Her ambulation at this point is impaired requiring at least 1 person to steady her. -severe pancytopenia secondary to chronic liver disease. Hemoccults were positive and her hemoglobin now is 7.2. She also has a significant coagulopathy will be given vitamin K. we will follow H&H every 12 hours. -chronic alcoholic liver disease: This is present with evidence of cirrhosis but no ascites. Patient reports 10 weeks of abstinence low there remains an elevated AST and bilirubin with a coagulopathy and elevated INR. Plan: Continue lactulose therapy and will continue this as an outpatient. GI is consulting and has been discussed with GI and endoscopy is planned for tomorrow with possible colonoscopy also. Transfuse 1 unit PRBC today. She continues to be a fall risk and needs a bed monitor. Patient is working with PT and OT although her progress has been slow. Today I do not see that the patient could function on her own safely as she remains a fall risk. Discussed with Dr. Bedoya for Gastroenterology and her x-rays have been reviewed by myself Disposition: Patient continues to be resistant to an SNF placement although I think this would be best for her. Subjective: Reports she is feeling slightly better yet remains weak on standing and has an unrealistic outlook upon her condition. Denies headache nausea vomiting hematemesis or hematochezia. Stools have been guaiac positive. Denies abdominal pain. Objective: Vital Signs Temp Pulse Resp BP Pulse Ox 37.1 C 71 14 98/57 L 90 L 03/28/17 12:47 03/28/17 12:47 03/28/17 12:47 03/28/17 12:47 03/28/17 12:47 Laboratory Results 03/28/17 04:15 03/28/17 04:15 03/27/17 03/28/17 03/29/17 05:59 05:59 05:59 Intake Total 1000 Output Total 500 Balance 500 PT 25.5 SEC (12.0-15.0) H 03/24/17 13:50 INR 2.30 (0.83-1.16) H 03/24/17 13:50 - Time Spent With Patient Time Spent with Patient: greater than 35 minutes Time Spent with Patient: Greater than 35 minutes spent on this patients care, greater than 50% of time spent counseling, educating, and coordinating care regarding the above mentioned plan. - Pending Discharge Pending Discharge Within 24 Hours: No Pending Discharge Within 48 Hours: No - Physical Exam Constitutional: no apparent distress, chronically ill appearing Eyes: PERRL, icteric sclera Ears, Nose, Mouth, Throat: moist mucous membranes, hearing normal Cardiovascular: regular rate and rhythym, no murmur, rub, or gallop Respiratory: no respiratory distress, no rales or rhonchi, clear to auscultation Gastrointestinal: normoactive bowel sounds, soft, non-tender abdomen, tenderness (Very mild tenderness in the epigastrium without a palpable or pulsatile mass. The liver cannot be palpated and the right upper quadrant is nontender.), distension Genitourinary: no bladder fullness Skin: warm Musculoskeletal: abnormal gait, generalized weakness Neurologic: AAOx3, CN II-XII Intact Psychiatric: interacting appropriately ICD10 Worksheet Patient Problems: Problems Problem Status Onset Cirrhosis of liver Acute Altered mental status, unspecified Acute
[2017-03-28] MEDS ORDERED: NS W/ 20 KCl/L 1,000 ML IV SCH (14:00)
[2017-03-28] MEDS ORDERED: PHYTONADIONE 10 MG in NS 50 ML IV ONE (14:00)
--- NOTE | 2017-03-28 14:17 | GCON ---
[f rep st] CONSULTATION DATE OF CONSULTATION: 03/28/2017 CHIEF COMPLAINT: Anemia. HPI: I am asked to see this patient in consultation by Dr. Jones for a chief complaint of anemia and heme-positive stools. She is a 56-year-old with cirrhosis from alcohol abuse, followed by Dr. Shaneka gonzales, and had been doing well until this weekend, when had decompensation with elevated LFTs and e ncephalopathy of unclear cause. She did fall, although no evidence of head trauma. In the hospital , she has been noted to have decrease in hematocrit and stools are positive for heme. She states th at she had noted some bright red blood with her stools prior to admission, but it stopped. She is u nclear if there have been any black stools, but no nausea and vomiting, no hematemesis. She does bach ve some epigastric abdominal pain. She has a history of GERD, but this is controlled well with omep razole. She underwent an upper endoscopy in November 2016 that showed grade 1 varices, hiatal hernia, du odenal polyps which were biopsied. She does take occasional NSAIDs, but states she stopped some thaddeus e ago. There is a family history for colon polyps in her brother. She has never had a colonoscopy. The patient states that she has not had any alcohol for 10 weeks. ALLERGIES: Patient is allergic to codeine and penicillin. CURRENT MEDICATIONS: Atenolol, Campral, X-Cam, fluoxetine, levothyroxine, naltrexone, omeprazole, p otassium and temazepam. PAST MEDICAL HISTORY: Notable for alcoholism and alcoholic liver disease with cirrhosis. FAMILY HISTORY: Positive for colon polyps in her brother. SOCIAL HISTORY: History of alcohol as above. REVIEW OF SYSTEMS: I performed a complete review of systems, which is negative except for the perti nent positives and negatives noted above in the HPI. PHYSICAL EXAM: VITAL SIGNS: Currently afebrile at 36.7, BP 98/50, pulse 66. CONSTITUTIONAL: Aler t and oriented. HEENT: Eyes: No scleral icterus. No oral lesions. CARDIOVASCULAR: Regular rate /rhythm. CHEST: Clear to auscultation. ABDOMEN: Obese, soft, no clear ascites, no rebound. NEUR OLOGIC: Nonfocal. SKIN: No significant rashes, no edema. LABORATORY DATA: BUN and creatinine are 5 and 0.5. on admission was elevated at 25.5, w ith an INR of 2.30. White count low at 2.3, hematocrit low at 21.0, platelets low at 49. MCV bridgett l. LFTs were elevated on admission with alkaline phosphatase of 156, total bilirubin of 4.8, AST 68 , ALT 39. Abdominal ultrasound shows no evidence of portal vein thrombosis. Normal size liver, no nodularity or focal lesions, no significant ascites. ASSESSMENT: 1. Anemia. This is likely multifactorial, as patient does have pancytopenia, suspect this is more of a bone marrow issue. Concern is if she is having any gastrointestinal blood loss. 2. Heme-positive stools. The patient did have some bright red blood per rectum last week, it was s elf limited. There is no evidence of active GI bleeding now, however was in the setting of her decr eased hematocrit, I do recommend endoscopic evaluation. Overall, patient would be at increased risk because of her coagulopathy, low platelets and liver disease, although I think this can be done saf maddie, and may need to give FFP. 3. Increasing liver function tests of unclear cause, as the patient states she has not been drinkin g recently. No liver lesions seen on ultrasound, or portal vein thrombosis. 4. Coagulopathy. The patient reportedly got vitamin K on admission, but has not had a recheck ProT isaac, so we will check that stat today, and if INR is greater than 1.8, I would recommend 4 units of FFP to be given prior to the endoscopic procedures. 5. Encephalopathy. The patient has responded to lactulose, no asterixis on exam today. PLAN: We will prep for upper and lower endoscopy to be done tomorrow, we will do this with anesthes ia and may provide FFP, potentially platelets, as guided by her laboratory retesting. Will continue to follow, thank you for this consult. /[id number]/MODL
--- NOTE | 2017-03-28 15:03 | ASMTCMCOM ---
CM Note CM Note Notes: Met w/ pt to discuss dispo plan. CM consulted w/ nursing. Pt will be having a GI consult and blood transfusion today. Pt is agreeable to HC and first choice is [facility], second choices are [facility] and [facility]. CM spoke w/ Suzi at [facility] and ther e are no availabilities at this time. Pt has been accepted to [facility]. Pt continues to refuse SNF. Pt reports that her brother will be helping out. CM available if there are any changes. D/C date unclear at this point. Date Signed: 03/28/2017 03:03 PM Electronically Signed By:Hortencia Batista
[2017-03-28] MEDS: METOPROLOL TARTRATE 5 MG/5 ML INJ IVP SCH (17:43)
[2017-03-28 18:57] LABS: INR 2.36 (0.83-1.16)
[2017-03-28] MEDS: PANTOPRAZOLE SODIUM 40 MG in NS 100 ML IV SCH (21:59)
[2017-03-28] MEDS: MELATONIN 3 MG TAB PO SCH (21:59)
[2017-03-29] MEDS: METOPROLOL TARTRATE 5 MG/5 ML INJ IVP SCH ×4 (01:32→17:17)
[2017-03-29 05:21] LABS: ADD DIFF? NO; ADD MORPH? YES; ADD SCAN? NO; ATYPICAL LYMPHOCYTE FLAG 0 (0-99); FRAGMENT RBC FLAG 20 (0-99); HEMATOCRIT 24.8 % (38.0-47.0); HEMOGLOBIN 8.3 g/dL (12.6-16.3); LEFT SHIFT FLG 0 (0-99); LIPEMIA HEMOLYSIS FLAG 80 (0-99); MEAN CELL HEMOGLOBIN 30.5 pg (27.9-34.1); MEAN CELL HEMOGLOBIN CONCENTR. 33.5 g/dL (32.4-36.7); MEAN CELL VOLUME 91.2 fL (81.5-99.8); MEAN PLATELET VOLUME 10.5 fL (8.7-11.7); PLATELET CLUMPS FLAG 0 (0-99); PLATELET COUNT 51 10^3/uL (150-400); RED BLOOD CELL COUNT 2.72 10^6/uL (4.18-5.33)
[2017-03-29 05:26] LABS: RED CELL DISTRIBUTION WIDTH 22.7 % (11.5-15.2)
[2017-03-29 05:32] LABS: ANION GAP 11 mEq/L (8-16); CARBON DIOXIDE 20 mEq/l (22-31); CHLORIDE 108 mEq/L (97-110); CREATININE 0.5 mg/dL (0.6-1.0); GLOMERULAR FILTRATION RATE > 60; GLUCOSE 77 mg/dL (70-100); POTASSIUM 3.3 mEq/L (3.5-5.2); SODIUM 139 mEq/L (134-144)
[2017-03-29] MEDS: LEVOTHYROXINE 75 MCG TAB PO SCH (05:42)
[2017-03-29 06:48] LABS: HYPOCHROMIA 1+; MACROCYTES 1+; PLATELET ESTIMATE DECREASED (ADEQ)
[2017-03-29] MEDS: PANTOPRAZOLE SODIUM 40 MG in NS 100 ML IV SCH ×2 (08:00→21:17)
[2017-03-29] MEDS ORDERED: PROPOFOL/EMULSION 500 MG/50 ML BOTTLE IV ONE (09:55)
[2017-03-29] MEDS ORDERED: ONDANSETRON 4 MG/2 ML VIAL IVP PRN (09:59)
[2017-03-29] MEDS ORDERED: ALBUTEROL 3 ML DEYVIAL IH PRN (09:59)
[2017-03-29] MEDS ORDERED: NALOXONE HCL 0.4 MG/ML INJ IVP PRN (09:59)
--- NOTE | 2017-03-29 10:00 | PDANEPAE ---
ANE History of Present Illness EGD Colon ANE Past Medical History - Cardiovascular History Hx Hypertension: Yes Hx Arrhythmias: No Hx Chest Pain: No Hx Coronary Artery / Peripheral Vascular Disease: No Hx CHF / Valvular Disease: No Hx Palpitations: No - Pulmonary History Hx COPD: No Hx Asthma/Reactive Airway Disease: No Hx Recent Upper Respiratory Infection: No Hx Oxygen in Use at Home: No Hx Sleep Apnea: No Sleep Apnea Screening Result - Last Documented: Negative Pulmonary History Comment: smoker-7 cigs/day. - Neurologic History Hx Cerebrovascular Accident: No Hx Seizures: No Hx Dementia: No - Endocrine History Hx Diabetes: No Endocrine History Comment: hypothyroid - Renal History Hx Renal Disorders: No - Liver History Hx Hepatic Disorders: Yes Hepatic History Comment: cirrhosis - Neurological & Psychiatric Hx Hx Neurological and Psychiatric Disorders: No - Cancer History Hx Cancer: No - Congenital Disorder History Hx Congenital Disorders: No - GI History Hx Gastrointestinal Disorders: Yes Gastrointestinal History Comment: cirrhosis - Other Health History Other Health History: voice is "rough" overused,gravely 12-14-16. - Chronic Pain History Chronic Pain: No - Surgical History Prior Surgeries: age 22's fibrocystic mass-breast ANE Patient History - Allergies Allergies/Adverse Reactions: codeine Allergy (Verified 03/24/17 13:16) Vomiting Penicillins Allergy (Verified 03/24/17 13:16) Other-Enter Comments - Home Medications Home Medications: Acamprosate Calcium [Campral 333 MG (*)] 666 mg PO TID 03/24/17 [Last Taken ] Atenolol [Tenormin 100 mg (*)] 100 mg PO HS 03/24/17 [Last Taken 03/23/17] Herbals/Supplements -Info Only 1 ea PO DAILY 03/24/17 [Last Taken Unknown] Levothyroxine [Synthroid 75 mcg (*)] 75 mcg PO DAILY06 03/24/17 [Last Taken ] Naltrexone HCl 50 mg PO DAILY 03/24/17 [Last Taken 03/22/17] Omeprazole 40 mg PO DAILY 03/24/17 [Last Taken 03/23/17] Potassium Chloride [K-Tab ER] 20 meq PO DAILY 03/24/17 [Last Taken 03/23/17] Prozac 40 mg 80 mg PO DAILY 03/24/17 [Last Taken 03/23/17] Temazepam 7.5 mg PO HS 03/24/17 [Last Taken 03/23/17] - NPO status NPO Since - Liquids (Date): 03/29/17 NPO Since - Liquids (Time): 01:00 NPO Since - Solids (Date): 03/29/17 NPO Since - Solids (Time): 00:00 - Smoking Hx Smoking Status: Heavy smoker - Alcohol Use Alcohol Use: Sober ANE Labs/Vital Signs - Labs Result Diagrams: 03/29/17 04:12 03/29/17 04:12 - Vital Signs Blood Pressure: 106/57 Heart Rate: 68 Respiratory Rate: 16 O2 Sat (%): 95 Height: 182.88 cm Weight: 81.5 kg ANE Physical Exam - Airway Neck exam: FROM Mallampati Score: Class 2 - Pulmonary Pulmonary: clear to auscultation - Cardiovascular Cardiovascular: regular rate and rhythym - ASA Status ASA Status: III ANE Anesthesia Plan Anesthesia Plan: GA with mask
--- NOTE | 2017-03-29 10:35 | SUROPNOTE ---
[facility] Operative Report - Surgery EGD Colon full notes dictated Findings Antral gastropathy with mild oozing with contact Colon diverticulosis without bleeding Hemorrhoids Overall low risk for serious bleeding REc Correct coagulopathy PPI
[2017-03-29] MEDS: FLUoxetine 20 MG CAP PO SCH (10:55)
[2017-03-29] MEDS: ACAMPROSATE CALCIUM 333 MG TAB PO SCH ×3 (10:55→21:12)
[2017-03-29] MEDS: POTASSIUM CL 20 MEQ TAB PO SCH (10:56)
[2017-03-29] MEDS: LACTULOSE 20 GM/30 ML UDCUP PO SCH ×3 (10:56→21:12)
[2017-03-29] MEDS: NALTREXONE HCL 50 MG TAB PO SCH (10:56)
--- NOTE | 2017-03-29 11:05 | POSTANESTH ---
Post Anesthetic Evaluation Cardiovascular Status: Normal, Stable Respiratory Status: Normal, Stable Level of Consciousness/Mental Status: Can Participate in Eval, Mildly Sleepy, Arousable Pain Control: Adequate, Prn Tx Ordered Nausea/Vomiting Control: Adequate, Prn Tx Ordered Complications Possibly Related to Anesthesia: None Noted
--- NOTE | 2017-03-29 11:20 | GPN ---
[f rep st] PROCEDURE NOTE DATE OF PROCEDURE: 03/29/2017 PROCEDURE PERFORMED: Colonoscopy. INSTRUMENT USED: Olympus video colonoscope. MEDICINES GIVEN: Per anesthesiologist. INDICATIONS: Patient is a 56-year-old with liver disease, coagulopathy, heme-positive stools, and a nemia referred for upper and lower endoscopy. Prior to the procedure, exam was performed. Clear to auscultation. Heart and lungs within normal limits. Patient's mental status was appropriate. Pro cedure was explained including risks of bleeding, perforation, effects of sedation. She gave her in formed consent. FINDINGS: Patient was placed in left lateral decubitus position. Medicines were applied by the ane sthesiologist. A perianal and rectal exam performed and was normal. Instrument inserted into the r ectum, advanced by direct visualization to the area of the cecum, which was easily reached, identifi ed by the presence of the ileocecal valve, appendiceal orifice, and the confluence of teniae. From this area, the scope was slowly withdrawn with inspection of colonic mucosa. The prep was adequate for exam, although there was some residual stool that could make visualization for an AVM difficult, but unlikely to have missed any significant polyps. Scope was passed in the terminal ilium which w as normal, no old blood or bleeding seen. Diverticulosis was noted at the hepatic flexure and scatt ered through the sigmoid colon. Retroflexion was performed. Hemorrhoids were seen, both internal a nd external, without bleeding. Scope was then removed from the patient, who tolerated the procedure well. Time of procedure was approximately 20 minutes. ASSESSMENT: 1. Diverticulosis without bleeding. 2. Hemorrhoids. Overall, suspect her anemia is multifactorial, mostly in part probably from bone marrow suppression as she has decreased white count, platelets, as well as decreased hematocrit. As far as her heme-po sitive stools, could be from hemorrhoids or from slight oozing from her antrum. PLAN: 1. Okay to advance diet. 2. Recommend PPI long-term. 3. Correct her coagulopathy. Thank you for this consult. /[id number]/MODL
[2017-03-29] MEDS ORDERED: POTASSIUM CL 10 MEQ TAB PO ONE ×2 (11:24→21:25)
--- NOTE | 2017-03-29 11:25 | GPN ---
[f rep st] PROCEDURE NOTE DATE OF PROCEDURE: 03/29/2017 PROCEDURE PERFORMED: Upper endoscopy. INSTRUMENT USED: Olympus GIF video gastroscope. SEDATION GIVEN: Per anesthesiologist. INDICATIONS: Patient is a 56-year-old with cirrhosis from alcohol, worsening hepatic function with anemia and heme-positive stools, referred for upper and lower endoscopy. Prior to the procedure, ex am was performed including auscultation. Heart and lungs in normal limits. Patient's mental status was appropriate. Procedure was explained including risks of bleeding, perforation, or effects of s edation. She gave her informed consent. FINDINGS: After sedation was applied, patient was placed in left lateral decubitus position. Instr ument inserted through the bite block into the esophagus. There were only trace esophageal varices noted without esophagitis or Maria Fernanda-Sloan tear. Scope passed in the stomach. There was no old blo od. There was patchy but diffuse gastropathy in the proximal stomach and in the antrum that had emery e oozing with contact but no visible vessel. Scope was then passed in the duodenum. Had some mild erythema. Oozing would not be amenable to endoscopic therapy. This was biopsied in November that showed inactive gastritis and no H pylori. The scope was removed from the patient, who tolerated the proc edure well. Time spent was approximately 10 minutes. ASSESSMENT: Patchy gastropathy with some friability and oozing. This could certainly account for h er heme-positive stools and somewhat worsened with her underlying coagulopathy, but otherwise low ri sk for serious bleeding. PLAN: We will proceed with colonoscopy. Thank you for this consult. /[id number]/MODL
--- NOTE | 2017-03-29 16:25 | HOSPPROG ---
Hospitalist Progress Note Assessment/Plan: 56-year-old female admitted with an encephalopathy presumed to be an alcoholic encephalopathy secondary to hepatic failure and several falls. Patient has had persistent guaiac-positive stools with a falling hemoglobin and that she underwent endoscopy and colonoscopy today for the source of bleeding. Findings show she has a diffuse gas dropped the with some oozing on contact. The colonoscopy was negative for source of bleeding. - Acute anemia secondary to GI bleeding: Patient is status post transfusion of 1 unit PRBC. We are following the H&H every 12 hours. -acute hepatic encephalopathy with an elevated ammonia level on admission which is now normal after being placed on lactulose. She is moving her bowels easily and her mental status is improving although she does not have a realistic outlook on her capacity to function for herself at this time. She is alert but remains unrealistic about her situation. - Alcoholic and liver coagulopathy: She has a pancytop[place] [address], INR greater than 2.3, and an anemia. Liver functions are nearly normal though the AST is slightly elevated and she is jaundiced. the coagulopathy is most likely secondary to her liver disease. There is no evidence for DIC as she is not febrile, had minimal ascites, and therefore minimal chance of having spontaneous bacterial peritonitis. In these patients the INRs elevated although functionally they have better clotting function. Plan here is to follow her platelet count and hemoglobin and transfuse red cells as needed. Unless there is massive bleeding there is no reason to transfuse FFP. She will be given vitamin K 10 mg daily x3 days. -gait instability with a history of multiple falls and reported right ankle sprain. Her ambulation at this point is impaired requiring at least 1 person to steady her. -severe pancytopenia secondary to chronic liver disease. Hemoccults were positive and her hemoglobin now is 7.2. She also has a significant coagulopathy will be given vitamin K. we will follow H&H every 12 hours. -chronic alcoholic liver disease: This is present with evidence of cirrhosis but no ascites. Patient reports 10 weeks of abstinence low there remains an elevated AST and bilirubin with a coagulopathy and elevated INR. Plan: Continue lactulose therapy and will continue this as an outpatient. Vitamin K 10 mg p.o. for 3 days, follow the H&H on a q.12 hours basis, watch for fever and signs of abdominal infection, and continued to fall low for signs of bleeding. Discussed with Dr. Bedoya for Gastroenterology. Disposition: Patient continues to be resistant to an SNF placement although I think this would be best for her. Subjective: She is alert oriented x3 and denies chest pain shortness of breath or abdominal pain. She has limited understanding of the overall seriousness of her condition Objective: Vital Signs Temp Pulse Resp BP Pulse Ox 36.6 C 66 16 94/52 L 95 03/29/17 15:29 03/29/17 15:29 03/29/17 15:29 03/29/17 15:29 03/29/17 15:29 Laboratory Results 03/29/17 04:12 03/29/17 04:12 03/28/17 03/29/17 03/30/17 05:59 05:59 05:59 Intake Total 350 1012 Output Total 0 Balance 350 1012 PT 26.0 SEC (12.0-15.0) H 03/28/17 18:42 INR 2.36 (0.83-1.16) H 03/28/17 18:42 - Time Spent With Patient Time Spent with Patient: greater than 35 minutes Time Spent with Patient: Greater than 35 minutes spent on this patients care, greater than 50% of time spent counseling, educating, and coordinating care regarding the above mentioned plan. - Pending Discharge Pending Discharge Within 24 Hours: No Pending Discharge Within 48 Hours: No - Physical Exam Constitutional: no apparent distress, chronically ill appearing Eyes: PERRL, icteric sclera Ears, Nose, Mouth, Throat: moist mucous membranes, hearing normal Cardiovascular: regular rate and rhythym, systolic murmur Respiratory: no respiratory distress, no rales or rhonchi, clear to auscultation Gastrointestinal: normoactive bowel sounds, soft, non-tender abdomen, no palpable masses Genitourinary: no bladder fullness Skin: warm Musculoskeletal: generalized weakness Neurologic: AAOx3, CN II-XII Intact Psychiatric: interacting appropriately ICD10 Worksheet Patient Problems: Problems Problem Status Onset Cirrhosis of liver Acute Altered mental status, unspecified Acute
[2017-03-29 17:18] LABS: POTASSIUM 3.4 mEq/L (3.5-5.2)
[2017-03-29 18:03] LABS: HEMATOCRIT 23.5 % (38.0-47.0); HEMOGLOBIN 7.9 g/dL (12.6-16.3)
[2017-03-29] MEDS: MELATONIN 3 MG TAB PO SCH (21:12)
[2017-03-30] MEDS: METOPROLOL TARTRATE 5 MG/5 ML INJ IVP SCH ×3 (00:37→11:42)
[2017-03-30 04:44] LABS: ADD DIFF? NO; ADD MORPH? YES; ADD SCAN? NO; ATYPICAL LYMPHOCYTE FLAG 0 (0-99); FRAGMENT RBC FLAG 20 (0-99); HEMATOCRIT 22.3 % (38.0-47.0); HEMOGLOBIN 7.4 g/dL (12.6-16.3); LEFT SHIFT FLG 0 (0-99); LIPEMIA HEMOLYSIS FLAG 80 (0-99); MEAN CELL HEMOGLOBIN 31.2 pg (27.9-34.1); MEAN CELL HEMOGLOBIN CONCENTR. 33.2 g/dL (32.4-36.7); MEAN CELL VOLUME 94.1 fL (81.5-99.8); MEAN PLATELET VOLUME 10.6 fL (8.7-11.7); PLATELET CLUMPS FLAG 0 (0-99); RED BLOOD CELL COUNT 2.37 10^6/uL (4.18-5.33)
[2017-03-30 04:48] LABS: PLATELET COUNT 46 10^3/uL (150-400); RED CELL DISTRIBUTION WIDTH 22.6 % (11.5-15.2)
[2017-03-30 04:53] LABS: INR 2.09 (0.83-1.16); PROTIME(PATIENT) 23.6 SEC (12.0-15.0)
[2017-03-30 05:07] LABS: POTASSIUM 3.8 mEq/L (3.5-5.2)
[2017-03-30 05:32] LABS: MACROCYTES 1+; POLYCHROMASIA 1+
[2017-03-30 05:33] LABS: PLATELET ESTIMATE DECREASED (ADEQ)
[2017-03-30] MEDS: LEVOTHYROXINE 75 MCG TAB PO SCH (05:48)
--- NOTE | 2017-03-30 06:39 | HOSPPROG ---
Hospitalist Progress Note Assessment/Plan: 56-year-old female admitted with an encephalopathy presumed to be an alcoholic encephalopathy secondary to hepatic failure and several falls. Patient has had persistent guaiac-positive stools with a falling hemoglobin and that she underwent endoscopy and colonoscopy on 03/29. Findings show she has a diffuse gas dropped the with some oozing on contact. The colonoscopy was negative for source of bleeding. -Acute anemia secondary to GI bleeding: HGB falling again 2/2 slow oozing from gastric surface. Plan: follow Q12H h&H -acute hepatic encephalopathy with an elevated ammonia level on admission which is now normal after being placed on lactulose. She is moving her bowels easily and her mental status is improving although she does not have a realistic outlook on her capacity to function for herself at this time. She is alert but remains unrealistic about her situation. Plan: Continue lactulose as I believe this will be needed long-term. - Alcoholic and liver coagulopathy: She has a pancytop[place] [address], INR greater than 2.3, and an anemia. Liver functions are nearly normal though the AST is slightly elevated and she is jaundiced. the coagulopathy is most likely secondary to her liver disease. There is no evidence for DIC as she is not febrile, had minimal ascites, and therefore minimal chance of having spontaneous bacterial peritonitis. In these patients the INRs elevated although functionally they have better clotting function. Plan here is to follow her platelet count and hemoglobin and transfuse red cells as needed. Unless there is massive bleeding there is no reason to transfuse FFP. She will be given vitamin K 10 mg daily x3 days. This finding in the coagulopathy were discussed with Hematology and Dr. Romeo Wolff. -gait instability with a history of multiple falls and reported right ankle sprain. Her ambulation at this point is impaired requiring at least 1 person to steady her. Plan: PT and OT here and probably rehab orders SNF disposition. -severe pancytopenia secondary to chronic liver disease. -chronic alcoholic liver disease: This is present with evidence of cirrhosis but minimal ascites. Patient reports 10 weeks of abstinence low there remains an elevated AST and bilirubin with a coagulopathy and elevated INR. Ultrasound was reviewed by myself and with Radiology. Endoscopies shown grade 1 varices with a diffuse gastritis with the and oozing from the gastric surface. Overall the patient has more liver disease then she appreciates. Plan: Continue lactulose and discuss the possibility of liver transplant for this lady if she remains abstinent of alcohol. -new problem: right ankle sprain: This was present on admission but when the patient walks is more severe. I am going to order an ankle brace for the lady through PT. - SPCM: albumin 2.2. dietary consults. She has very minimal appetite and is not eating much here. Discussed with Dr. Bedoya for Gastroenterology, and Dr. Romeo Wolff for Hematology. Disposition: Patient continues to be resistant to an SNF placement although I think this would be best for her. Subjective: Reports she has very little appetite denies fever chills sweats cough. She has had no diarrhea or dysuria. Patient continues to be unrealistic about going home. Objective: Vital Signs Temp Pulse Resp BP Pulse Ox 36.8 C 64 16 98/56 L 95 03/30/17 03:46 03/30/17 03:46 03/30/17 03:46 03/30/17 03:46 03/30/17 03:46 Microbiology 03/24/17 16:35 Blood Culture - Final Blood Laboratory Results 03/30/17 04:16 03/30/17 04:16 03/29/17 03/30/17 03/31/17 05:59 05:59 05:59 Intake Total 350 1012 Output Total 0 Balance 350 1012 PT 23.6 SEC (12.0-15.0) H 03/30/17 04:16 INR 2.09 (0.83-1.16) H 03/30/17 04:16 - Time Spent With Patient Time Spent with Patient: greater than 35 minutes Time Spent with Patient: Greater than 35 minutes spent on this patients care, greater than 50% of time spent counseling, educating, and coordinating care regarding the above mentioned plan. - Pending Discharge Pending Discharge Within 24 Hours: No Pending Discharge Within 48 Hours: No - Physical Exam Constitutional: no apparent distress, chronically ill appearing, other ( telangectasis are noted of the face) Eyes: PERRL, icteric sclera Ears, Nose, Mouth, Throat: moist mucous membranes, hearing normal Cardiovascular: regular rate and rhythym, systolic murmur, JVD (Appears to be normal), edema (Trace peripheral edema) Respiratory: no respiratory distress, no rales or rhonchi, other (Possible decreased breath sounds in the bases.) Gastrointestinal: normoactive bowel sounds, soft, non-tender abdomen, no palpable masses, distension (Distended contour or simply overweight.), other ( Right upper quadrant is nontender) Genitourinary: no bladder fullness Skin: warm Musculoskeletal: generalized weakness, other (Right ankle tenderness with some ecchymosis laterally consistent with a right ankle sprain.) Neurologic: AAOx3, CN II-XII Intact Psychiatric: poor insight, poor judgement Lymph, Heme, Immunologic: petechiae ICD10 Worksheet Patient Problems: Problems Problem Status Onset Altered mental status, unspecified Acute Cirrhosis of liver Acute
[2017-03-30] MEDS: PANTOPRAZOLE SODIUM 40 MG in NS 100 ML IV SCH (07:41)
[2017-03-30] MEDS: FLUoxetine 20 MG CAP PO SCH (07:42)
[2017-03-30] MEDS: NALTREXONE HCL 50 MG TAB PO SCH (07:43)
[2017-03-30] MEDS: ACETAMINOPHEN 325 MG TAB PO PRN (07:43)
[2017-03-30] MEDS: POTASSIUM CL 20 MEQ TAB PO SCH (07:44)
[2017-03-30] MEDS: ACAMPROSATE CALCIUM 333 MG TAB PO SCH ×3 (07:45→21:10)
[2017-03-30] MEDS ORDERED: POTASSIUM CL 10 MEQ TAB PO ONE ×3 (09:02→21:47)
[2017-03-30] MEDS: PHYTONADIONE 2.5 MG/2.5 ML ORAL UDL PO SCH (10:04)
[2017-03-30] MEDS: LACTULOSE 20 GM/30 ML UDCUP PO SCH ×3 (10:04→21:11)
--- NOTE | 2017-03-30 11:04 | SOAPPROG ---
SOAP Progress Note Assessment/Plan: Assessment: Anemia suspect multifactorial with bone marrow suppression Heme+ stools oozing from antral gastritis complicated by coagulopathy but low risk for serious bleeding Abnormal LFT ETOH with cirrhosis decompensation ? from recent GI bleed Encephalopathy better Plan:Change to PO meds PPI BID Continue Lactulose Follow up with Dr. Nava 03/30/17 11:01 Objective: Vital Signs Temp Pulse Resp BP Pulse Ox 36.6 C 67 16 91/59 L 90 L 03/30/17 10:57 03/30/17 10:57 03/30/17 10:57 03/30/17 10:57 03/30/17 10:57 Microbiology 03/24/17 16:35 Blood Culture - Final Blood Laboratory Results 03/30/17 04:16 03/30/17 04:16 03/29/17 03/30/17 03/31/17 05:59 05:59 05:59 Intake Total 350 1012 Output Total 0 Balance 350 1012 PT 23.6 SEC (12.0-15.0) H 03/30/17 04:16 INR 2.09 (0.83-1.16) H 03/30/17 04:16 Physical Exam - Physical Exam General Appearance: WD/WN Respiratory: lungs clear Cardiac/Chest: regular rate, rhythm Abdomen: normal bowel sounds, non-tender ICD10 Worksheet Patient Problems: Problems Problem Status Onset Altered mental status, unspecified Acute Cirrhosis of liver Acute
--- NOTE | 2017-03-30 16:58 | ASMTCMCOM ---
CM Note CM Note Notes: Spoke w/pt and brother re; dc poc. Pt declines SNF, does not want to stay 30 days. Pt will dc home w/[facility], ( to add RN to pt/ot hc orders) and support from brothers. Brother has brought pt walker, BSC, and shower chair and may be available to spend the night, FERNIE w/f. Date Signed: 03/30/2017 04:57 PM Electronically Signed By:Lisette Ramírez
[2017-03-30 19:27] LABS: POTASSIUM 3.7 mEq/L (3.5-5.2)
[2017-03-30] MEDS: PANTOPRAZOLE SODIUM 40 MG TAB PO SCH (21:10)
[2017-03-30] MEDS: MELATONIN 3 MG TAB PO SCH (21:11)
[2017-03-31 05:21] LABS: ADD DIFF? NO; ADD MORPH? YES; ADD SCAN? NO; ATYPICAL LYMPHOCYTE FLAG 0 (0-99); FRAGMENT RBC FLAG 20 (0-99); HEMATOCRIT 22.8 % (38.0-47.0); HEMOGLOBIN 7.4 g/dL (12.6-16.3); LEFT SHIFT FLG 0 (0-99); LIPEMIA HEMOLYSIS FLAG 80 (0-99); MEAN CELL HEMOGLOBIN CONCENTR. 32.5 g/dL (32.4-36.7); MEAN CELL VOLUME 95.4 fL (81.5-99.8); MEAN PLATELET VOLUME 11.3 fL (8.7-11.7); PLATELET CLUMPS FLAG 0 (0-99); RED BLOOD CELL COUNT 2.39 10^6/uL (4.18-5.33)
[2017-03-31 05:24] LABS: PLATELET COUNT 48 10^3/uL (150-400); RED CELL DISTRIBUTION WIDTH 22.3 % (11.5-15.2)
[2017-03-31 05:39] LABS: ALANINE AMINOTRANSFERASE 34 IU/L (9-52); ALBUMIN 2.3 g/dL (3.5-5.0); ALKALINE PHOSPHATASE 157 IU/L (38-126); ANION GAP 10 mEq/L (8-16); ASPARTATE AMINOTRANSFERASE 61 IU/L (14-46); BILIRUBIN,TOTAL 4.6 mg/dL (0.1-1.4); CALCIUM 8.3 mg/dL (8.5-10.4); CARBON DIOXIDE 21 mEq/l (22-31); CHLORIDE 109 mEq/L (97-110); CREATININE 0.5 mg/dL (0.6-1.0); GLOMERULAR FILTRATION RATE > 60; GLUCOSE 80 mg/dL (70-100); POTASSIUM 3.9 mEq/L (3.5-5.2); SODIUM 140 mEq/L (134-144)
[2017-03-31] MEDS: LEVOTHYROXINE 75 MCG TAB PO SCH (05:41)
[2017-03-31 05:46] LABS: BILIRUBIN-CONJUGATED 2.3 mg/dL (0.0-0.5); BILIRUBIN-UNCONJUGATED 2.3 mg/dL (0.0-1.1)
[2017-03-31 05:55] LABS: HYPOCHROMIA 1+; MACROCYTES 1+; PLATELET ESTIMATE DECREASED (ADEQ); POLYCHROMASIA 1+
[2017-03-31] MEDS ORDERED: POTASSIUM CL 10 MEQ TAB PO ONE (08:04)
[2017-03-31] MEDS: FLUoxetine 20 MG CAP PO SCH (10:18)
[2017-03-31] MEDS: LACTULOSE 20 GM/30 ML UDCUP PO SCH ×3 (10:18→22:13)
[2017-03-31] MEDS: POTASSIUM CL 20 MEQ TAB PO SCH (10:18)
[2017-03-31] MEDS: PANTOPRAZOLE SODIUM 40 MG TAB PO SCH ×2 (10:19→22:12)
[2017-03-31] MEDS: ACAMPROSATE CALCIUM 333 MG TAB PO SCH ×3 (10:19→22:12)
[2017-03-31] MEDS: NALTREXONE HCL 50 MG TAB PO SCH (10:19)
[2017-03-31] MEDS: PHYTONADIONE 2.5 MG/2.5 ML ORAL UDL PO SCH (11:42)
--- NOTE | 2017-03-31 11:57 | ASMTCMCOM ---
CM Note CM Note Notes: Today bedside RN states Pt. concerned about possible d/c today. states he is willing to be flexible with Pt. to establish safe d/c plan. Roxann went to speak w/ Pt. in room alone. Discussed her thoughts/feelings about going home. She is grateful that brothers have been helping her get loan closet walker, shower bench, and bedside commode, but will not have them all compiled until tomorrow. Brother Kalia has been particularly helpful. Pt. still does not want to go to LTC facility due to 30-day stay requirement w/ Medicaid. Pt. cared for her [id number] old mother at [facility] and just doesn't want to "go there" yet. Pt. does acknowledge her deconditioned state. At her request, Fider provided Pt. with alternative to AA support group information - [facility]. Pt. grateful. Pt. states she will be celebrating her 3 months of sobriety from ETOH on Sunday. Pt. plans to f/u with outpatient care at [facility] for PCP. Pt. plans to have groceries delivered to home, have "cleaning lady", and support of brothers. Plan is for d/c home w/ HC - RN, PT, OT through [facility]. Pt. acknowledges struggling w/ depression - on Zoloft. Upon my questioning, has had suicidal ideations during her attempts to get sober, but her cat Abi helped her get through it. Is not actively having suicidal thoughts/feelings at this time. Plan for d/c tomorrow w/ [facility] - RN, PT, OT. Fidelogan let RN and know. Date Signed: 03/31/2017 11:56 AM Electronically Signed By:Alyssa Alcala
--- NOTE | 2017-03-31 15:59 | HOSPPROG ---
Hospitalist Progress Note Assessment/Plan: # cirrhosis d/t etOH - c/b enceph, thrombocytopenia, coagulopathy - follows with Dr Bailey - lactulose # hepatic encephalopathy - much improved # pancytopenia - hgb stable x 24 hours, follow tomorrow # etOH abuse in remission # gait instability, falls - will need home care on dc # severe protein calorie malnutrition Subjective: wants to go home; no complaints Objective: Vital Signs Temp Pulse Resp BP Pulse Ox 36.5 C 66 18 117/67 92 03/31/17 15:26 03/31/17 15:26 03/31/17 15:26 03/31/17 15:26 03/31/17 15:26 Laboratory Results 03/31/17 04:51 03/31/17 04:51 03/30/17 03/31/17 04/01/17 05:59 05:59 05:59 Intake Total 1012 500 Output Total 0 Balance 1012 500 PT 23.6 SEC (12.0-15.0) H 03/30/17 04:16 INR 2.09 (0.83-1.16) H 03/30/17 04:16 chart reviewed imaging reviewed - Time Spent With Patient Time Spent with Patient: greater than 35 minutes Time Spent with Patient: Greater than 35 minutes spent on this patients care, greater than 50% of time spent counseling, educating, and coordinating care regarding the above mentioned plan. - Physical Exam Constitutional: no apparent distress, appears nourished ICD10 Worksheet Patient Problems: Problems Problem Status Onset Cirrhosis of liver Acute Altered mental status, unspecified Acute
[2017-03-31] MEDS: MELATONIN 3 MG TAB PO SCH (22:12)
[2017-04-01] MEDS: LEVOTHYROXINE 75 MCG TAB PO SCH (04:26)
[2017-04-01 04:43] LABS: ADD DIFF? NO; ADD MORPH? YES; ADD SCAN? NO; ATYPICAL LYMPHOCYTE FLAG 30 (0-99); FRAGMENT RBC FLAG 20 (0-99); HEMATOCRIT 23.8 % (38.0-47.0); HEMOGLOBIN 7.7 g/dL (12.6-16.3); LEFT SHIFT FLG 0 (0-99); LIPEMIA HEMOLYSIS FLAG 80 (0-99); MEAN CELL HEMOGLOBIN 31.2 pg (27.9-34.1); MEAN CELL HEMOGLOBIN CONCENTR. 32.4 g/dL (32.4-36.7); MEAN CELL VOLUME 96.4 fL (81.5-99.8); MEAN PLATELET VOLUME 10.9 fL (8.7-11.7); PLATELET CLUMPS FLAG 0 (0-99); PLATELET COUNT 51 10^3/uL (150-400); RED BLOOD CELL COUNT 2.47 10^6/uL (4.18-5.33)
[2017-04-01 04:50] LABS: RED CELL DISTRIBUTION WIDTH 22.5 % (11.5-15.2)
[2017-04-01 05:01] LABS: ALANINE AMINOTRANSFERASE 32 IU/L (9-52); ALBUMIN 2.2 g/dL (3.5-5.0); ALKALINE PHOSPHATASE 145 IU/L (38-126); ANION GAP 6 mEq/L (8-16); ASPARTATE AMINOTRANSFERASE 63 IU/L (14-46); BILIRUBIN,TOTAL 4.6 mg/dL (0.1-1.4); CALCIUM 8.4 mg/dL (8.5-10.4); CARBON DIOXIDE 22 mEq/l (22-31); CHLORIDE 109 mEq/L (97-110); CREATININE 0.6 mg/dL (0.6-1.0); GLOMERULAR FILTRATION RATE > 60; GLUCOSE 76 mg/dL (70-100); POTASSIUM 3.6 mEq/L (3.5-5.2); SODIUM 137 mEq/L (134-144); TOTAL PROTEIN 6.2 g/dL (6.3-8.2)
[2017-04-01 05:07] LABS: BILIRUBIN-CONJUGATED 2.1 mg/dL (0.0-0.5); BILIRUBIN-UNCONJUGATED 2.5 mg/dL (0.0-1.1)
[2017-04-01 05:14] LABS: HYPOCHROMIA 1+; MACROCYTES 1+; MICROCYTES 1+
[2017-04-01 05:15] LABS: PLATELET ESTIMATE DECREASED (ADEQ)
[2017-04-01] MEDS ORDERED: POTASSIUM CL 10 MEQ TAB PO ONE ×3 (08:29→22:27)
[2017-04-01] MEDS: LACTULOSE 20 GM/30 ML UDCUP PO SCH ×3 (09:44→21:23)
[2017-04-01] MEDS: FLUoxetine 20 MG CAP PO SCH (09:44)
[2017-04-01] MEDS: ACAMPROSATE CALCIUM 333 MG TAB PO SCH ×3 (09:44→21:23)
[2017-04-01] MEDS: POTASSIUM CL 20 MEQ TAB PO SCH (09:45)
[2017-04-01] MEDS: PANTOPRAZOLE SODIUM 40 MG TAB PO SCH ×2 (09:45→21:23)
[2017-04-01] MEDS: NALTREXONE HCL 50 MG TAB PO SCH (09:45)
[2017-04-01] MEDS: PHYTONADIONE 2.5 MG/2.5 ML ORAL UDL PO SCH (10:03)
--- NOTE | 2017-04-01 10:53 | HOSPPROG ---
Hospitalist Progress Note Assessment/Plan: # cirrhosis d/t etOH - c/b enceph, thrombocytopenia, coagulopathy - her persistent AST elevation is abnormal given her abstinence from etOH; no other serologies in our chart here - follows with Dr Bailey - I will defer further liver testing to him - cont lactulose # hepatic encephalopathy - much improved # pancytopenia - hgb stable x 24 hours, follow tomorrow # etOH abuse in remission # gait instability, falls - will need home care on dc # severe protein calorie malnutrition # dispo - we had a long talk regarding this. she strongly prefers to go home though this doesn't seem safe at this point. - i clearly expressed this to her. CM and RN will continue this conversation with her today. Subjective: she is concerned about being discharged home; we had a long conversation about the safety of this Objective: Vital Signs Temp Pulse Resp BP Pulse Ox 36.7 C 65 16 107/61 88 L 04/01/17 07:35 04/01/17 07:35 04/01/17 07:35 04/01/17 09:53 04/01/17 07:35 Laboratory Results 04/01/17 04:15 04/01/17 04:15 03/31/17 04/01/17 04/02/17 05:59 05:59 05:59 Intake Total 500 Balance 500 PT 23.6 SEC (12.0-15.0) H 03/30/17 04:16 INR 2.09 (0.83-1.16) H 03/30/17 04:16 - Time Spent With Patient Time Spent with Patient: greater than 35 minutes Time Spent with Patient: Greater than 35 minutes spent on this patients care, greater than 50% of time spent counseling, educating, and coordinating care regarding the above mentioned plan. - Physical Exam Constitutional: no apparent distress, appears nourished ICD10 Worksheet Patient Problems: Problems Problem Status Onset Cirrhosis of liver Acute Altered mental status, unspecified Acute
--- NOTE | 2017-04-01 15:48 | ASMTCMCOM ---
CM Note CM Note Notes: Patient unable to reach her support network and hasn't as yet called about on-line shopping. She was confused this morning and seemingly aftraid of returning home just yet. We talked about having all her options open for Sunday, which may include LTC. She is concerned that she would have to stay at a LTC for 30 days whether she needed to or not. Informed her that the 30 days would include the days spent in [facility] so her time at a facility mioght only be 20 days. Patient said that she was willing to complete a ULTC-100 to have that option. If she went to a facility she would like to go to [facility]. [facility] sent a Face Sheet to determine which Medicaid she has. They are having trouble with the [facility] Medicaid and payments. She also wondered if [facility] . She has used [facility] in the past and "trusts them". Contacted [facility] and left a message. [facility] unable to admit patient. ULTC-100 completed and faxed to [facility] today. If patient decides to return home w/HC may want [facility]. Date Signed: 04/01/2017 03:47 PM Electronically Signed By:Patricia Lovell
[2017-04-01 18:21] LABS: POTASSIUM 3.7 mEq/L (3.5-5.2)
[2017-04-01] MEDS: MELATONIN 3 MG TAB PO SCH (21:23)
[2017-04-02 04:40] LABS: ADD DIFF? NO; ADD MORPH? YES; ADD SCAN? NO; ATYPICAL LYMPHOCYTE FLAG 20 (0-99); FRAGMENT RBC FLAG 20 (0-99); HEMATOCRIT 23.6 % (38.0-47.0); HEMOGLOBIN 7.7 g/dL (12.6-16.3); LEFT SHIFT FLG 0 (0-99); LIPEMIA HEMOLYSIS FLAG 80 (0-99); MEAN CELL HEMOGLOBIN 31.2 pg (27.9-34.1); MEAN CELL HEMOGLOBIN CONCENTR. 32.6 g/dL (32.4-36.7); MEAN CELL VOLUME 95.5 fL (81.5-99.8); MEAN PLATELET VOLUME 10.3 fL (8.7-11.7); PLATELET CLUMPS FLAG 0 (0-99); RED BLOOD CELL COUNT 2.47 10^6/uL (4.18-5.33)
[2017-04-02 04:42] LABS: PLATELET COUNT 48 10^3/uL (150-400); RED CELL DISTRIBUTION WIDTH 22.3 % (11.5-15.2)
[2017-04-02 04:59] LABS: ALANINE AMINOTRANSFERASE 36 IU/L (9-52); ALBUMIN 2.3 g/dL (3.5-5.0); ALKALINE PHOSPHATASE 136 IU/L (38-126); ANION GAP 9 mEq/L (8-16); ASPARTATE AMINOTRANSFERASE 60 IU/L (14-46); BILIRUBIN,TOTAL 5.6 mg/dL (0.1-1.4); CALCIUM 8.2 mg/dL (8.5-10.4); CARBON DIOXIDE 20 mEq/l (22-31); CHLORIDE 110 mEq/L (97-110); CREATININE 0.5 mg/dL (0.6-1.0); GLOMERULAR FILTRATION RATE > 60; GLUCOSE 76 mg/dL (70-100); POTASSIUM 3.8 mEq/L (3.5-5.2); SODIUM 139 mEq/L (134-144); TOTAL PROTEIN 6.1 g/dL (6.3-8.2)
[2017-04-02 05:05] LABS: BILIRUBIN-CONJUGATED 2.2 mg/dL (0.0-0.5); BILIRUBIN-UNCONJUGATED 3.4 mg/dL (0.0-1.1)
[2017-04-02 05:12] LABS: HYPOCHROMIA 1+; MACROCYTES 1+; MICROCYTES 1+; POLYCHROMASIA 1+
[2017-04-02 05:13] LABS: PLATELET ESTIMATE DECREASED (ADEQ)
[2017-04-02] MEDS: LEVOTHYROXINE 75 MCG TAB PO SCH (05:53)
[2017-04-02] MEDS ORDERED: POTASSIUM CL 10 MEQ TAB PO ONE (08:05)
[2017-04-02] MEDS: POTASSIUM CL 20 MEQ TAB PO SCH (08:38)
[2017-04-02] MEDS: NALTREXONE HCL 50 MG TAB PO SCH (08:38)
[2017-04-02] MEDS: LACTULOSE 20 GM/30 ML UDCUP PO SCH ×2 (08:38→15:06)
[2017-04-02] MEDS: ACAMPROSATE CALCIUM 333 MG TAB PO SCH ×2 (08:38→15:06)
[2017-04-02] MEDS: FLUoxetine 20 MG CAP PO SCH (08:38)
[2017-04-02] MEDS: PANTOPRAZOLE SODIUM 40 MG TAB PO SCH (08:38)
[2017-04-02 11:50] VITALS: BP 103/54; PULSE 70; RESP 16; TEMP 97.6; O2SAT 93
--- NOTE | 2017-04-02 13:47 | PDIAF ---
- Diagnosis Diagnosis: Liver Failure Code Status: Full Code - Medication Management Discharge Medications: Medications to Continue on Transfer Herbals/Supplements -Info Only 1 ea PO DAILY 03/24/17 [Last Taken Unknown] Levothyroxine [Synthroid 75 mcg (*)] 75 mcg PO DAILY06 03/24/17 [Last Taken ] Acamprosate Calcium [Campral 333 MG (*)] 666 mg PO TID #180 tab 04/02/17 [Last Taken Unknown] Lactulose 20 gm PO TID 30 Days 04/02/17 [Last Taken Unknown] Melatonin [Melatonin 3 MG (*)] 3 mg PO HS tab 04/02/17 [Last Taken Unknown] Pantoprazole Sodium [Protonix 40mg (*)] 40 mg PO BID #60 tab 04/02/17 [Last Taken Unknown] Potassium Chloride [K-Tab ER] 20 meq PO DAILY #30 tablet.er 04/02/17 [Last Taken Unknown] Prozac 40 mg 80 mg PO DAILY #60 04/02/17 [Last Taken Unknown] Discharge Medications: Refer to the Discharge Home Medication list for PRN reason. - Orders Services needed: Home Care, Registered Nurse, Master Purchasing Engineer, Physical Therapy, Occupational Therapy Home Care Face to Face: I certify that this patient was under my care and that I had the required [id number] encounter meeting the encounter requirements on the discharge day. My findings support the fact that the patient is homebound as defined in CMS Chapter 7 Medicare Benefits Manual 30.1.1, The condition of the patient is such that there exists a normal inability to leave home and consequently, leaving home would require a considerable and taxing effort. Diet Recommendation: no restrictions on diet Weigh Patient: weekly - Labs/Radiology BMP Date: 04/05/17 (send to Dr Bailey) CBC Date: 04/05/17 (send to Dr Bailey) - Follow Up Care Current Providers and Referrals: [facility] [Other] - As per Instructions
--- NOTE | 2017-04-02 14:04 | ASMTCMCOM ---
CM Note CM Note Notes: Spoke w/pt this am, still declines SNF at this time. D/w , final orders faxed. Will go home with [facility], Mildred and Barbara at [facility] notified. Date Signed: 04/02/2017 02:03 PM Electronically Signed By:Lisette Ramírez
--- NOTE | 2017-04-02 14:25 | GDS ---
[f rep st] DISCHARGE SUMMARY DIAGNOSES: 1. Cirrhosis, likely due to alcohol. 2. Hepatic encephalopathy. 3. Pancytopenia. 4. Alcohol abuse, in remission. 5. Gastrointestinal bleed. 6. Acute blood loss anemia. 7. Severe protein-calorie malnutrition. 8. Gait instability and falls. HOSPITAL COURSE: By problem: 1. Encephalopathy: This is likely hepatic encephalopathy, likely exacerbated by GI bleed. She is on lactulose. Her encephalopathy has improved, though she is not at her baseline. She will continu e to take lactulose. 2. Cirrhosis due to alcohol: She follows with Dr. Nava. She has been sober for 12 weeks. She is on acamprosate for alcohol cessation. I have stopped her naltrexone, as this can cause hepatocel lular injury. I will defer to Dr. Nava on restarting this. She is mildly volume overloaded; how ever, she would strongly prefer not to take diuretics. She has no real ascites, but she does have m ild lower extremity edema. I will not start diuretics at this point. 3. Pancytopenia: Likely due to alcohol and cirrhosis. Her hemoglobin has been stable. On dischar , it is 7.7. It has been in this range for 5 days prior to discharge. 4. Disposition: I have strongly encouraged her to go to a detention facility. She has capac ity to make her own decisions, and she declines this. I think that she needs to be stronger as well as have improved mental clarity prior to going home. I have ordered home care for her. She will h ave caregivers who are quite readily available to her, as well. BILLING: I spent more than 30 minutes on the day of discharge coordinating care. /[id number]/MODL
--- NOTE | 2017-04-02 16:51 | ASDISCHSUM ---
Discharge Information Plan Status:Home with Home Health Medically Cleared to Leave: Discharge Date:04/02/2017 04:18 PM D/C Disposition:Home Health Service ADT D/C Disposition:Home, Routine, Self-Care Projected Discharge Date:03/30/2017 11:00 AM Transportation at D/C:Family Discharge Delay Reason: Follow-Up Date:03/30/2017 11:00 AM Discharge Slot: Final Diagnosis: Placement Information Referral Type:*Home Health Care Services Referral ID:[id number] Provider Name:[facility] Krupa [place] Address 1:[address] [address] Phone Number: Address 2: Fax Number: City:[place] Selection Factors: State:[place] Patient Contact Information Contact Name:JACQUELYN Relationship: Address: Work Phone: City:[facility] Phone: [facility] Code:[place] Email: Financial Information Financial Class: Primary Plan Desc[place] Primary Plan Number:[id number] Secondary Plan Desc: Secondary Plan Number: Assessment Information [facility] CM Progress Note CM Note CM Note Notes: Met w/ pt to discuss dispo plan. CM consulted w/ nursing. Pt will be having a GI consult and blood transfusion today. Pt is agreeable to and first choice is [facility], second choices are [facility] and [facility]. CM spoke w/ Suzi at [facility] and there are no availabilities at this time. Pt has been accepted to [facility]. Pt continues to refuse SNF. Pt reports that her brother will be helping out. CM available if there are any changes. D/C date unclear at this point. Date Signed: 03/28/2017 03:03 PM Electronically Signed By:Hortencia Batista [facility] CM Progress Note CM Note CM Note Notes: Spoke w/pt and brother re; dc poc. Pt declines SNF, does not want to stay 30 days. Pt [facility], ( to add RN to pt/ot hc orders) and support from brothers. Brother has brought pt walker, BSC, and shower chair and may be available to spend the night, CM w/f. Date Signed: 03/30/2017 04:57 PM Electronically Signed By:Lisette Ramírez [facility] Progress Note CM Note CM Note Notes: Today bedside RN states Pt. concerned about possible d/c today. states he is willing to be flexible with Pt. to establish safe d/c plan. Roxann went to speak w/ Pt. in room alone. Discussed her thoughts/feelings about going home. She is grateful that brothers have been helping her get loan closet walker, shower bench, and bedside commode, but will not have them all compiled until tomorrow. Brother Kalia has been particularly helpful. Pt. still does not want to go to LTC facility due to 30-day stay requirement w/ Medicaid. Pt. cared for her [id number] old mother at [facility] and just doesn't want to "go there" yet. Pt. does acknowledge her deconditioned state. At her request, SWer provided Pt. with alternative to AA support group information - [employer]. Pt. grateful. Pt. states she will be celebrating her 3 months of sobriety from ETOH on Sunday. Pt. plans to f/u with outpatient care at [facility] for PCP. Pt. plans to have groceries delivered to home, have "cleaning lady", and support of brothers. Plan is for d/c home w/ HC - RN, PT, OT through [facility]. Pt. acknowledges struggling w/ depression - on Zoloft. Upon my questioning, states has had suicidal ideations during her attempts to get sober, but her cat Abi helped her get through it. Is not actively having suicidal thoughts/feelings at this time. Plan for d/c tomorrow w/ [facility] - RN, PT, OT. SWer let RN and MD know. Date Signed: 03/31/2017 11:56 AM Electronically Signed By:Alyssa Alcala [facility] CM Progress Note CM Note CM Note Notes: Patient unable to reach her support network and hasn't as yet called about on-line shopping. She was confused this morning and seemingly aftraid of returning home just yet. We talked about having all her options open for Sunday, which may include LTC. She is concerned that she would have to stay at a LTC for 30 days whether she needed to or not. Informed her that the 30 days would include the days spent in [facility] so [facility] [place] [facility]. Patient said that she was willing to complete a ULTC-100 to have that option. If she went to a facility she would like to go to [facility]. [facility] sent a Face Sheet to determine which Medicaid she has. They are having trouble with the [facility] Medicaid and payments. She also wondered if [facility] might be able to admit her instead of [facility]. She has used [facility] in the past and "trusts them". Contacted [facility] and left a message. [facility] unable to admit patient. ULTC-100 completed and faxed to [facility] today. If patient decides to return home w/HC may want [employer] [facility] [facility]. Date Signed: 04/01/2017 03:47 PM Electronically Signed By:Patricia Lovell [facility] CM Progress Note CM Note CM Note Notes: Spoke w/pt this am, still declines SNF at this time. D/w , final orders faxed. Will go home with [facility], Mildred and Barbara at [facility] notified. Date Signed: 04/02/2017 02:03 PM Electronically Signed By:Lisette Ramírez Intervention Information
== END 2017-04-02 16:18 | disposition home or self-care (01) | DRG 432 ==
LOC: OBSVTOIN 16:30 → F3E 16:53
PROVIDERS: ADMIT Internal Medicine; ATTEND Internal Medicine
PROC: 30233N1 Transfusion of Nonautologous Red Blood Cells into Peripheral Vein, Percutaneous Approach (ICD-10-PCS; principal; 2017-03-29 10:00)
PROC: 0DJ08ZZ Inspection of Upper Intestinal Tract, Via Natural or Artificial Opening Endoscopic (ICD-10-PCS; principal; 2017-03-29 10:00)
PROC: 0DJD8ZZ Inspection of Lower Intestinal Tract, Via Natural or Artificial Opening Endoscopic (ICD-10-PCS; principal; 2017-03-29 10:00)
DX: K70.40 Alcoholic hepatic failure without coma (principal); K70.30 Alcoholic cirrhosis of liver without ascites; D68.4 Acquired coagulation factor deficiency; D62 Acute posthemorrhagic anemia; F10.10 Alcohol abuse, uncomplicated; E43 Unspecified severe protein-calorie malnutrition; K57.30 Diverticulosis of large intestine without perforation or abscess without bleeding; D61.818 Other pancytopenia; K64.8 Other hemorrhoids; Z91.81 History of falling; R29.6 Repeated falls; S93.401A Sprain of unspecified ligament of right ankle, initial encounter; W19.XXXA Unspecified fall, initial encounter; E03.9 Hypothyroidism, unspecified; F17.210 Nicotine dependence, cigarettes, uncomplicated
CPT/HCPCS: 97110-GP; 97116-GP; 97161-GP; 97165-GO; 97530-GO; 97530-GP; 97535-GO; J2704; J3430; P9016; P9017

== ENCOUNTER 2017-04-17 09:12 | Inpatient (IN) | payer MEDICAID ==
[2017-04-17] MEDS ORDERED: NS 250 ML IV ONE (10:25)
--- NOTE | 2017-04-17 10:34 | EDPHY ---
H & P Time Seen by Provider: 04/17/17 09:35 HPI/ROS: HPI Weakness, worsening shortness of breath. Once home O2. 57-year-old female by private vehicle. She has a history of alcohol abuse and alcoholic cirrhosis. She presents to the emergency department complaining of weakness and worsening shortness of breath over the last week. She is asking for home oxygen. She has not had any chest pain. She denies fever. 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 ROS: Constitutional: No fever, no chills. As above. Eyes: No discharge. No changes in vision. ENT: No sore throat. No nasal congestion or rhinorrhea. Respiratory: As above. No shortness of breath. Cardiac: No chest pain, no palpitations. Gastrointestinal: No abdominal pain, no vomiting, no diarrhea. Genitourinary: No hematuria. No dysuria or increased frequency with urination. Musculoskeletal: No back pain. No neck pain. No myalgias or arthralgias. Skin: No rashes. Neurological: No headache. No focal weakness or altered sensation. Past medical history: Cirrhosis, alcohol abuse, alcohol liver disease, anxiety , hypothyroidism, depression. Recent admission to [facility] with an ammonia level of 63, confusion, weakness. Social history: As above. Here by herself. Nonsmoker. Physical Exam: General Appearance: Alert, no distress. This patient is responding to questions appropriately and in full sentences. This patient appears well- hydrated and well-nourished. Eyes: Pupils equal and round no pallor or injection. No lid edema, erythema or injection. Respiratory: There are no retractions, decreased lung sounds at the left base, otherwise lungs are clear to auscultation with good air movement bilaterally. No tachypnea. Cardiovascular: Regular rate and rhythm. No murmur. Gastrointestinal: Abdomen is soft and nontender, mildly distended, no masses, bowel sounds normal. No focal tenderness at McBurney's point. No Werner sign. Neurological: Motor sensory function is grossly intact. Cranial nerves are normal. Gait is normal. Skin: Warm and dry, no rashes. Musculoskeletal: Neck is supple and nontender. Extremities are symmetrical. All joints range without pain or impingement. Psychiatric: No agitation. No depression. Database: EKG: EKG time is 12:27 p.m.; EKG shows a narrow complex normal sinus rhythm with a ventricular rate of 74. QT prolongation. The MA, QRS intervals are within normal limits. Nonspecific T-wave abnormalities lateral leads. There are no ST -T wave changes indicative of ischemic or injury pattern. No evidence of right heart strain. Interpreted by me. Imaging: Chest x-ray PA and lateral; the cardiac mediastinal silhouette is unremarkable. Large left-sided pleural effusion with likely associated atelectasis. This is significantly worse from previous x-ray on March 29 of this year No other acute cardiopulmonary disease process noted. Interpreted by me. CT chest with IV contrast; no pulmonary embolism. Moderate left-sided pleural effusion. Small right-sided pleural effusion. Results were discussed with staff radiologist Dr. Daniel Bryant. Procedures: Emergency department course: IV placed. She was placed on a monitor. Vital signs have been reviewed. Pulse oximetry is 88-91% on room air. She is afebrile. Vital signs otherwise unremarkable. 12:20 p.m., patient re-evaluated. Results of her diagnostic workup discussed. Need for CT angiogram of her chest discussed. She is in agreement. I discussed admission with her for further management by the hospitalist service and drainage of her left pleural effusion. She is in agreement with this. 12:25 p.m., spoke with hospitalist, Dr. Orlin Sanchez. He is familiar with this patient. He accepts the patient for admission. 1:25 p.m., results of CT discussed with the patient. EMS is at the bedside. Her remaining emergency department course under my care has been uneventful. She was transferred to [facility] in stable condition. Differential Diagnosis: The differential diagnosis on this patient includes but is not limited to enlarging pleural effusion, pneumonia, cirrhosis. This represents a partial list of diagnoses considered. These considerations are based on history, physical exam, past history, reassessment and diagnostic testing. Smoking Status: Heavy smoker Constitutional: Initial Vital Signs Temperature (C) 36.5 C 04/17/17 09:26 Heart Rate 78 04/17/17 09:26 Respiratory Rate 18 04/17/17 09:26 Blood Pressure 139/85 H 04/17/17 09:26 O2 Sat (%) 91 L 04/17/17 09:26 O2 Delivery Mode Nasal Cannula O2 (L/minute) 2 Allergies/Adverse Reactions: codeine Allergy (Verified 04/17/17 09:23) Vomiting Penicillins Allergy (Verified 04/17/17 09:23) Other-Enter Comments Home Medications: Medication Instructions Recorded Herbals/Supplements -Info Only 1 ea PO DAILY 03/24/17 Levothyroxine [Synthroid 75 mcg 75 mcg PO DAILY06 03/24/17 (*)] Acamprosate Calcium [Campral 333 666 mg PO TID #180 tab 04/02/17 MG (*)] Lactulose 20 gm PO TID 30 Days ml 04/02/17 Melatonin [Melatonin 3 MG (*)] 3 mg PO HS tab 04/02/17 Pantoprazole Sodium [Protonix 40mg 40 mg PO BID #60 tab 04/02/17 (*)] Potassium Chloride [K-Tab ER] 20 meq PO DAILY #30 tablet.er 04/02/17 Prozac 40 mg 80 mg PO DAILY #60 04/02/17 Medical Decision Making - Diagnostics Imaging Results: Imaging Impressions Chest X-Ray 04/17/17 09:36 Impression: Moderate to large left and small right pleural effusions resulting in bibasilar compressive atelectasis. Chest/Thorax CTA 04/17/17 12:14 Impression: 1. No evidence of pulmonary embolus using CT protocol. 2. Large left pleural effusion and small right pleural effusion with adjacent compressive atelectatic changes. 3. Moderate ascites with underlying cirrhosis and probable splenomegaly. Findings discussed with Pete Harrington MD at 13:18 hour, 04/17/2017. - Data Points Laboratory Results: Laboratory Results 04/17/17 11:05 04/17/17 11:05 04/17/17 04/17/17 04/17/17 11:15 11:05 11:05 WBC RBC Hgb Hct MCV MCH MCHC RDW Plt Count MPV Neut % (Auto) Lymph % (Auto) [place] % (Auto) Eos % (Auto) Baso % (Auto) Nucleat RBC Rel Count Absolute Neuts (auto) Absolute Lymphs (auto) Absolute Monos (auto) Absolute Eos (auto) Absolute Basos (auto) Absolute Nucleated RBC Immature Gran % Immature Gran # Platelet Estimate Polychromasia Hypochromasia Microcytic Cells Oval Macrocytes Schistocytes PT INR APTT D-Dimer Sodium 138 mEq/L mEq/L (134-144) Potassium 3.6 mEq/L mEq/L (3.5-5.2) Chloride 108 mEq/L mEq/L (97-110) Carbon Dioxide 21 mEq/l L mEq/l (22-31) Anion Gap 9 mEq/L mEq/L (8-16) BUN 10 mg/dL mg/dL (7-23) Creatinine 0.5 mg/dL L mg/dL (0.6-1.0) Estimated GFR > 60 Glucose 94 mg/dL mg/dL (70-100) Calcium 8.4 mg/dL L mg/dL (8.5-10.4) Total Bilirubin 7.7 mg/dL H mg/dL (0.1-1.4) Conjugated Bilirubin 3.6 mg/dL H mg/dL (0.0-0.5) Unconjugated Bilirubin 4.1 mg/dL H mg/dL (0.0-1.1) AST 113 IU/L H IU/L (14-46) ALT 52 IU/L IU/L (9-52) Alkaline Phosphatase 178 IU/L H IU/L (38-126) Ammonia < 9.0 uMOL/L L uMOL/L (9.0-30.0) Troponin I < 0.012 ng/mL ng/mL (0.000-0.034) NT-Pro-B Natriuret Pep 354 pg/mL H pg/mL (0-125) Total Protein 8.0 g/dL g/dL (6.3-8.2) Albumin 3.0 g/dL L g/dL (3.5-5.0) 04/17/17 04/17/17 11:05 11:05 WBC 2.61 10^3/uL L 10^3/uL (3.80-9.50) RBC 2.89 10^6/uL L 10^6/uL (4.18-5.33) Hgb 9.5 g/dL L g/dL (12.6-16.3) Hct 28.8 % L % (38.0-47.0) MCV 99.7 fL fL (81.5-99.8) MCH 32.9 pg pg (27.9-34.1) MCHC 33.0 g/dL g/dL (32.4-36.7) RDW 22.2 % H % (11.5-15.2) Plt Count 57 10^3/uL L 10^3/uL (150-400) MPV 11.2 fL fL (8.7-11.7) Neut % (Auto) 63.2 % % (39.3-74.2) Lymph % (Auto) 26.1 % % (15.0-45.0) [place] % (Auto) 8.8 % % (4.5-13.0) Eos % (Auto) 1.1 % % (0.6-7.6) Baso % (Auto) 0.4 % % (0.3-1.7) Nucleat RBC Rel Count 0.0 % % (0.0-0.2) Absolute Neuts (auto) 1.65 10^3/uL L 10^3/uL (1.70-6.50) Absolute Lymphs (auto) 0.68 10^3/uL L 10^3/uL (1.00-3.00) Absolute Monos (auto) 0.23 10^3/uL L 10^3/uL (0.30-0.80) Absolute Eos (auto) 0.03 10^3/uL 10^3/uL (0.03-0.40) Absolute Basos (auto) 0.01 10^3/uL L 10^3/uL (0.02-0.10) Absolute Nucleated RBC 0.00 10^3/uL 10^3/uL (0-0.01) Immature Gran % 0.4 % % (0.0-1.1) Immature Gran # 0.01 10^3/uL 10^3/uL (0.00-0.10) Platelet Estimate DECREASED L (ADEQ) Polychromasia 1+ H Hypochromasia 1+ H Microcytic Cells 1+ H Oval Macrocytes 1+ H Schistocytes 1+ H PT 24.8 SEC H SEC (12.0-15.0) INR 2.26 H (0.83-1.16) APTT 45.9 SEC H SEC (23.0-38.0) D-Dimer 9.01 ug/mLFEU H ug/mLFEU (0.00-0.50) Sodium Potassium Chloride Carbon Dioxide Anion Gap BUN Creatinine Estimated GFR Glucose Calcium Total Bilirubin Conjugated Bilirubin Unconjugated Bilirubin AST ALT Alkaline Phosphatase Ammonia Troponin I NT-Pro-B Natriuret Pep Total Protein Albumin Medications Given: Discontinued Medications Sodium Chloride (Ns) 250 mls @ 1,000 mls/hr IV EDNOW ONE PRN Reason: Protocol Stop: 04/17/17 10:39 Last Admin: 04/17/17 11:25 Dose: 250 mls Departure - Departure Disposition: [facility] Inpatient Acute Clinical Impression: Dyspnea, Hypoxia, Pleural effusion, left, Pancytopenia, Alcoholic hepatitis, Liver failure
[2017-04-17 11:28] LABS: % IMMATURE GRANULYOCYTES 0.4 % (0.0-1.1); ABSOLUTE IMMATURE GRANULOCYTES 0.01 10^3/uL (0.00-0.10); ADD DIFF? NO; ADD MORPH? YES; ADD SCAN? NO; ATYPICAL LYMPHOCYTE FLAG 70 (0-99); FRAGMENT RBC FLAG 20 (0-99); HEMATOCRIT 28.8 % (38.0-47.0); HEMOGLOBIN 9.5 g/dL (12.6-16.3); LEFT SHIFT FLG 0 (0-99); LIPEMIA HEMOLYSIS FLAG 80 (0-99); MEAN CELL HEMOGLOBIN 32.9 pg (27.9-34.1); MEAN CELL VOLUME 99.7 fL (81.5-99.8); MEAN PLATELET VOLUME 11.2 fL (8.7-11.7); PLATELET CLUMPS FLAG 10 (0-99); PLATELET COUNT 57 10^3/uL (150-400); RED BLOOD CELL COUNT 2.89 10^6/uL (4.18-5.33)
[2017-04-17 11:31] LABS: INR 2.26 (0.83-1.16); PROTIME(PATIENT) 24.8 SEC (12.0-15.0)
[2017-04-17 11:34] LABS: RED CELL DISTRIBUTION WIDTH 22.2 % (11.5-15.2)
[2017-04-17 11:36] LABS: ANION GAP 9 mEq/L (8-16); APTT 45.9 SEC (23.0-38.0); CALCIUM 8.4 mg/dL (8.5-10.4); CARBON DIOXIDE 21 mEq/l (22-31); CHLORIDE 108 mEq/L (97-110); CREATININE 0.5 mg/dL (0.6-1.0); GLOMERULAR FILTRATION RATE > 60; GLUCOSE 94 mg/dL (70-100); POTASSIUM 3.6 mEq/L (3.5-5.2); SODIUM 138 mEq/L (134-144)
[2017-04-17 11:55] LABS: HYPOCHROMIA 1+; MACROCYTES 1+; MICROCYTES 1+; PLATELET ESTIMATE DECREASED (ADEQ); POLYCHROMASIA 1+; SCHISTOCYTES 1+; TROPONIN I < 0.012 ng/mL (0.000-0.034)
[2017-04-17 11:58] LABS: BILIRUBIN,TOTAL 7.7 mg/dL (0.1-1.4); BILIRUBIN-CONJUGATED 3.6 mg/dL (0.0-0.5); BILIRUBIN-UNCONJUGATED 4.1 mg/dL (0.0-1.1)
[2017-04-17] MEDS ORDERED: IOPAMIDOL (ISOVUE 370) 100 ML BTL IV ONE ×2 (12:21→12:40)
--- NOTE | 2017-04-17 12:28 | CPEKG ---
Heart Rate: 74 RR Interval: 811 P-R Interval: 164 QRSD Interval: 98 QT Interval: 520 QTC Interval: 577 P [place]: 28 QRS [place]: -14 T Wave [place]: -14 EKG Severity - ABNORMAL ECG - EKG Impression: SINUS RHYTHM EKG Impression: NONSPECIFIC T ABNORMALITIES, LATERAL LEADS EKG Impression: PROLONGED QT INTERVAL Electronically Signed By: Pete Harrington 17-Apr-2017 12:33:27
[2017-04-17] MEDS ORDERED: ACETAMINOPHEN 325 MG TAB PO PRN (15:49)
[2017-04-17] MEDS ORDERED: ONDANSETRON 4 MG/2 ML VIAL IVP PRN (15:49)
[2017-04-17] MEDS ORDERED: ONDANSETRON DISINTEGRATING 4 MG TAB PO PRN (15:49)
[2017-04-17] MEDS: FUROSEMIDE 40 MG TAB PO SCH (19:11)
[2017-04-17] MEDS: LACTULOSE 20 GM/30 ML UDCUP PO SCH ×2 (19:12→21:16)
[2017-04-17] MEDS: ACAMPROSATE CALCIUM 333 MG TAB PO SCH ×2 (19:12→21:30)
[2017-04-17] MEDS: PANTOPRAZOLE SODIUM 40 MG TAB PO SCH (21:16)
[2017-04-17] MEDS: MELATONIN 3 MG TAB PO SCH (21:16)
[2017-04-18 04:46] LABS: % IMMATURE GRANULYOCYTES 0.3 % (0.0-1.1); ABSOLUTE IMMATURE GRANULOCYTES 0.01 10^3/uL (0.00-0.10); ADD DIFF? NO; ADD MORPH? YES; ADD SCAN? NO; ATYPICAL LYMPHOCYTE FLAG 40 (0-99); FRAGMENT RBC FLAG 0 (0-99); HEMATOCRIT 23.4 % (38.0-47.0); HEMOGLOBIN 7.6 g/dL (12.6-16.3); LEFT SHIFT FLG 0 (0-99); LIPEMIA HEMOLYSIS FLAG 80 (0-99); MEAN CELL HEMOGLOBIN 32.3 pg (27.9-34.1); MEAN CELL HEMOGLOBIN CONCENTR. 32.5 g/dL (32.4-36.7); MEAN CELL VOLUME 99.6 fL (81.5-99.8); MEAN PLATELET VOLUME 10.5 fL (8.7-11.7); PLATELET CLUMPS FLAG 0 (0-99); RED BLOOD CELL COUNT 2.35 10^6/uL (4.18-5.33)
[2017-04-18 04:53] LABS: PLATELET COUNT 49 10^3/uL (150-400)
[2017-04-18 04:55] LABS: INR 2.7 (0.83-1.16)
[2017-04-18 04:56] LABS: APTT 47.9 SEC (23.0-38.0)
[2017-04-18 05:00] LABS: ALANINE AMINOTRANSFERASE 47 IU/L (9-52); ALBUMIN 2.3 g/dL (3.5-5.0); ALKALINE PHOSPHATASE 133 IU/L (38-126); ANION GAP 10 mEq/L (8-16); ASPARTATE AMINOTRANSFERASE 91 IU/L (14-46); CALCIUM 8.1 mg/dL (8.5-10.4); CARBON DIOXIDE 20 mEq/l (22-31); CHLORIDE 108 mEq/L (97-110); CREATININE 0.6 mg/dL (0.6-1.0); GLOMERULAR FILTRATION RATE > 60; GLUCOSE 87 mg/dL (70-100); SODIUM 138 mEq/L (134-144); TOTAL PROTEIN 6.7 g/dL (6.3-8.2)
[2017-04-18 05:06] LABS: BILIRUBIN-CONJUGATED 2.6 mg/dL (0.0-0.5); BILIRUBIN-UNCONJUGATED 3.4 mg/dL (0.0-1.1)
[2017-04-18 06:37] LABS: HYPOCHROMIA 1+; MACROCYTES 1+; PLATELET ESTIMATE DECREASED (ADEQ); POLYCHROMASIA 1+; SCHISTOCYTES 1+
[2017-04-18] MEDS: POTASSIUM CL 20 MEQ TAB PO SCH (08:06)
[2017-04-18] MEDS: FUROSEMIDE 40 MG TAB PO SCH (08:06)
[2017-04-18] MEDS: FLUoxetine 20 MG CAP PO SCH (08:07)
[2017-04-18] MEDS: LACTULOSE 20 GM/30 ML UDCUP PO SCH ×3 (08:08→21:14)
[2017-04-18] MEDS: ACAMPROSATE CALCIUM 333 MG TAB PO SCH ×3 (08:08→21:14)
[2017-04-18] MEDS: PANTOPRAZOLE SODIUM 40 MG TAB PO SCH ×2 (08:21→21:17)
[2017-04-18] MEDS ORDERED: PROTOCOL POTASSIUM 1 DOSE MISC PRN (08:50)
[2017-04-18] MEDS ORDERED: PROTOCOL MAGNESIUM 1 DOSE IV PRN (08:50)
[2017-04-18] MEDS ORDERED: SPIRONOLACTONE 50 MG TAB PO SCH (09:00)
[2017-04-18] MEDS ORDERED: POTASSIUM CL 10 MEQ TAB PO ONE ×3 (10:20→19:36)
[2017-04-18] MEDS ORDERED: MAGNESIUM SULF 2 GM/WATER 50 ML IV ONE (10:22)
[2017-04-18] MEDS: LEVOTHYROXINE 75 MCG TAB PO SCH (11:15)
--- NOTE | 2017-04-18 12:40 | ASMTCMCOM ---
CM Note CM Note Notes: Pt. is a 57-year-old woman known to [facility]. Pt. admitted for weakness, shortness of breath, pleural effusions, and ascites. Hx. ETOHism (unknown the last time Pt. had a drink), and hepatic encephalopathy. Pt. came to ED asking for home O2 due to her shortness of breath. Hx. anxiety and depression. Pt. reportedly lives alone in her home with her cat. OT recommending SNF vs HC at this time. Pt. refused SNF to OT today. Pt. has Medicaid, so she would need to go to LTC Medicaid stay with no rehab benefit. Pt. likely to d/c home with HC supports. Reportedly, Pt. had [facility] in past. Liked the therapist, but not the RN per OT. PARVEEN/FERNIE to follow for d/c POC. Date Signed: 04/18/2017 12:40 PM Electronically Signed By:Alyssa Alcala LCSW
--- NOTE | 2017-04-18 15:33 | GHP ---
[f rep st] HISTORY AND PHYSICAL DATE OF ADMISSION: 04/17/2017 HISTORY OF PRESENT ILLNESS: The patient is a pleasant 57-year-old female with a history of alcoholic cirrhosis, and recent admission for alcoholic hepatitis. She has been sober for 12 weeks, and durin g that time she had progressive symptoms of cirrhosis such as confusion. During her last admission, which was in late February and into early March, she has been started on lactulose. She was not st arted on diuretics. She presents today with increasing shortness of breath and lower extremity edema. She has not had co ugh or sputum. She has not had fever or chills. She has not had urgency, frequency, dysuria. She n otes that her abdominal girth has been about the same to smaller than it has previously been. REVIEW OF SYSTEMS: A complete 10-point review of systems was conducted and negative, except as noted in the HPI. PAST MEDICAL HISTORY: 1. Cirrhosis secondary to alcohol use. 2. Alcoholism in remission. 3. Hepatic encephalopathy. ALLERGIES: Codeine and penicillin. MEDICATIONS: Home medications are potassium, levothyroxine, lactulose, acamprosate, pantoprazole, me latonin, and fluoxetine. 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 Alcohol as in the HPI. She is an inte rmittent smoker. FAMILY HISTORY: Reviewed and unremarkable. PHYSICAL EXAM: PRESENTING VITAL SIGNS: Temperature 36.5, blood pressure 139/85, pulse 78, breathing 18 times a minute, 91% on room air. GENERAL: In no acute distress. HEENT: Sclerae anicteric. Or opharynx clear. Mucous membranes moist. NECK: Supple without lymphadenopathy or JVD. LUNGS: Crac kles of the right base. Decreased breath sounds with dullness to percussion about [address] The left lung field has good air movement without wheeze. HEART: S1, S2. Not tachycardic. ABDOM EN: Soft. There is moderate fluid wave. LOWER EXTREMITIES: 1+ edema bilaterally. Calves nontende r. SKIN: Spider hemangioma on the chest and face. NEUROLOGIC: Nonfocal. LABS: White count 2.6, hematocrit 28.8, platelets 57. INR is 2.26. Sodium 138, potassium 3.6, chlo ride 108, bicarb 21, BUN 10, creatinine 0.5, glucose . Troponin less than 0.012. BNP is 3 54. Ammonia is less than 9. Chest x-ray shows a large left-sided pleural effusion without infiltrate, minimal to no right-sided e ffusion. Chest x-ray was interpreted by me. CTA shows no evidence of pulmonary embolism, as expected, and a large left pleural effusion, essentia lly confirming the findings of the chest x-ray. EKG interpreted by me shows sinus at 74 with normal axis and intervals. No ST or T-wave changes. No right heart strain. I have discussed the case with . ASSESSMENT AND PLAN: A 57-year-old female who presents with progressive dyspnea on exertion and a la rge left pleural effusion. 1. Pleural effusion. This almost certainly represents an hepatic hydrothorax. Thoracentesis is ind icated. There were no infectious symptoms to suggest pneumonia, so I will not cover with antibiotics . This is not the sequelae of a pulmonary embolism, nor is heart failure. 2. Cirrhosis. Diuretics are indicated. We will continue her lactulose. 3. Thrombocytopenia secondary to cirrhosis. 4. Alcohol use. Apparently in remission. Will follow. I think she is a low risk for withdrawal. DISPOSITION: Inpatient status. /[id number]/MODL
--- NOTE | 2017-04-18 15:54 | GCON ---
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 HISTORY OF PRESENT ILLNESS: The patient is a pleasant 57-year-old female who saw my partner, Dr. Nava, on December 01 for evaluation of abnormal imaging, consistent with cirrhosis. She was noted to have ascites, splenomegaly, and hepatofugal flow. The etiology was felt to be alcohol. She had negative hepatitis C and B serologies, among other workup. She started to be abstinent on January 15, 2017. She has not had any alcohol since that time. She was admitted to [facility] in February for anemia and heme-positive stools. She underwent EGD and colonoscopy, which revealed mild portal hypertensive gastropathy but no evidence of varices, and diverticulosis only in her colon. She did have some mild encephalopathy at that time. They thought that she was oozing from her antral gastritis and that the mild upper GI bleed caused mild encephalopathy. She was discharged on April 02. She presented back last night with increased shortness of breath. She was noted to have a pleural effusion, and she was admitted for evaluation. It was thought that this is hepatic hydrothorax, which seems reasonable. She is now admitted for the above. She has had worsening of her coagulopathy, and her bilirubin has increased since her last admission. She is complaining of shortness of breath and some mild abdominal discomfort but denies chest pain, fevers, chills , sweats, nausea, vomiting, dysphagia, odynophagia, early satiety, diarrhea, constipation, hematochezia. Her weight has gone up with increased ascites. PAST MEDICAL HISTORY: Alcoholic cirrhosis, hypothyroidism, depression. PAST SURGICAL HISTORY: EGD and colonoscopy. She has never had any surgeries. FAMILY HISTORY: Her brother had colon polyps. There are no colon cancer or other cancers to her knowledge. SOCIAL HISTORY: She drank alcohol heavily. She stopped drinking on January 15. She stopped smoking 1 month ago. MEDICATIONS: Medications in hospital include Campral 660 mg three times daily, Tylenol p.r.n., Prozac 80 mg daily, Lasix 40 mg daily, lactulose 20 g three times daily p.o. , Synthroid 75 mcg daily. Magnesium protocol: Melatonin 3 mg p.o. at bedtime, Zofran p.r.n., Protonix 40 mg twice daily. Potassium protocol : Potassium 20 mg p.o. daily, Aldactone 50 mg daily. ALLERGIES: Codeine, flu vaccine, and penicillin. She does not remember the reactions REVIEW OF SYSTEMS: A complete review of systems has been performed and is negative, other than in the HPI. PHYSICAL EXAM: GENERAL: Chronically ill-appearing female in no acute distress. Sitting in the bed comfortably. VITAL SIGNS: Blood pressure is 110/ 64, pulse is 79, respirations are 18. She is 93% on 4 L nasal cannula. Temperature is 37.0. EYES: Icteric. EOMI. CAITLYN. NECK: Supple. Full range of motion. No JVD. BACK: No spine tenderness. No CVA tenderness. LUNGS: Right side is clear. Left side is decreased breath sounds with some egophony, consistent with ear effusion. CARDIAC: S1, S2. Regular rate and rhythm. No murmurs, rubs, or gallops appreciated. ABDOMEN: Bowel sounds are normal pitch and frequency. ABDOMEN: Soft. She has minimal right upper quadrant and left lower quadrant tenderness over her liver and enlarged spleen. EXTREMITIES: No cyanosis, clubbing. Trace edema. NEUROLOGIC: Cranial nerves intact. Nonfocal. No asterixis. SKIN: She has spider angiomata. LABORATORY DATA: From today, sodium 138, potassium 3.0, chloride 108, bicarb 20 , BUN 7, creatinine 0.6, calcium 8.1, magnesium 1.4. Total bilirubin 6.0; unconjugated 3.4, conjugated 2.6; AST 91; ALT 47; alkaline phosphatase 133. Total protein 6.7, albumin 2.3. From the , ammonia is less than 9. Pro- time from today is 29.0, INR is 2.70, PTT is 47.9. On March 24, her pro- time was 25.5 and an INR of 2.3. Stool occult blood was positive back on March 27. Antimitochondrial antibody from December 01 was less than 0.10. On December 01, 2016, ferritin equal 22.6. From March 29, 2017, EGD performed showed patchy gastropathy from friability and oozing in the antrum. Trace esophageal varices noted, without evidence of Maria Fernanda-Sloan tear. No evidence of gastric varices. Mild erythema in the duodenum. Colonoscopy performed March 29, 2017, exam to the terminal ilium. Diverticulosis of the hepatic flexure in the sigmoid colon. Internal hemorrhoid and external hemorrhoids. No polyps. ASSESSMENT: A 57-year-old female with alcoholic liver disease, who comes in with worsening ascites and hepatic hydrothorax. She has worsening coagulopathy and elevated liver enzymes, all consistent with her liver disease. She is adamant, and I do believe her, that she has been abstinent since January 15. RECOMMENDATIONS: 1. 2 g sodium diet. The patient has been eating a lot of salt, with salted almonds and other salted snacks. 2. Paracentesis. I would recommend 50 g salt-poor albumin with every 4 L of ascites removed. 3. Increase spironolactone to 100 mg a day. 4. Daily weights. 5. Continue outpatient medications. 6. If she has any worsening encephalopathy, we would recommend Xifaxan. I am not very fond of lactulose. 7. Discontinue p.r.n. Tylenol in a patient with end-stage liver disease. 8. Follow labs including pro-time, BUN, creatinine. 9. Pending results of tap may consider any antibiotics for possible SBP. 10. Check UA. 11. I will contact the transplant team in [facility]. I believe they need 6 months of alcohol abstinence before evaluating for liver transplant. They also may need some rehab. I have discussed this case with Dr. Nava as well. Thank you for allowing me to participate in the patient's care. Do not hesitate to call me with any questions. Copy requested to: Mary Allred, Nurse Practitioner /[id number]/MODL MTDD
--- NOTE | 2017-04-18 16:55 | SOAPPROG ---
SOAP Progress Note Assessment/Plan: 1. alcoholic hepatitis with possible hepatic hydrothorax -GI consult, discussed care plan with Dr Maurice -paracentesis ordered for today -thoracentesis if INR lower -Dr Maurice discussed possible transplant referral with her in future 2. Hx etoh use -sober 3 months! 3 Acute resp failure with hypoxia secondary to large pleural effusion (? hepatic hydrothorax) -O2 -possible thoracentesis 4. Pancytopenia -stable 5. Hypokalemia -replace per protocol DISPO > 2 mdnt bc of severity of hypoxia and effusions FULL CODE DVT prophy- contraindicated with elev INR 04/19/17 07:13 Subjective: She feels better, 'mentally clearer' today. Confirms NO alcohol since December. Is sad that she is 'this bad' but encouraged that she might get better/transplant eval. Objective: Vital Signs Temp Pulse Resp BP Pulse Ox 98.2 F 72 16 112/67 94 04/18/17 14:20 04/18/17 14:20 04/18/17 14:20 04/18/17 14:20 04/18/17 14:20 Laboratory Results 04/18/17 04:25 04/18/17 04:25 04/17/17 04/18/17 04/19/17 11:59 11:59 11:59 Intake Total 900 Balance 900 PT 29.0 SEC (12.0-15.0) H 04/18/17 04:25 INR 2.70 (0.83-1.16) H 04/18/17 04:25 Physical Exam - Physical Exam General Appearance: WD/WN, alert, no apparent distress EENT: scleral icterus (R), scleral icterus (L) Respiratory: decreased breath sounds (R side), No respiratory distress, No crackles, No rales, No rhonchi Cardiac/Chest: regular rate, rhythm Abdomen: soft, distended, No guarding, No rebound Neuro/Psych: alert, normal mood/affect, No cognition abnormalities, No speech abnormalities ICD10 Worksheet Patient Problems: Problems Problem Status Onset Alcoholic hepatitis Acute Dyspnea Acute Hypoxia Acute Liver failure Acute Pancytopenia Acute Pleural effusion, left Acute Altered mental status, unspecified Acute Cirrhosis of liver Acute
[2017-04-18] MEDS ORDERED: PHYTONADIONE 10 MG/ML AMP SC SCH (17:15)
[2017-04-18] MEDS: PHYTONADIONE 10 MG in NS 50 ML IV SCH (17:47)
[2017-04-18 18:43] LABS: POTASSIUM 3.2 mEq/L (3.5-5.2)
[2017-04-18] MEDS: MELATONIN 3 MG TAB PO SCH (21:17)
[2017-04-19 04:50] LABS: % IMMATURE GRANULYOCYTES 0.3 % (0.0-1.1); ABSOLUTE IMMATURE GRANULOCYTES 0.01 10^3/uL (0.00-0.10); ADD DIFF? NO; ADD MORPH? YES; ADD SCAN? NO; ATYPICAL LYMPHOCYTE FLAG 40 (0-99); FRAGMENT RBC FLAG 20 (0-99); HEMOGLOBIN 7.7 g/dL (12.6-16.3); LEFT SHIFT FLG 0 (0-99); LIPEMIA HEMOLYSIS FLAG 80 (0-99); MEAN CELL HEMOGLOBIN 32.4 pg (27.9-34.1); MEAN CELL HEMOGLOBIN CONCENTR. 32.1 g/dL (32.4-36.7); MEAN CELL VOLUME 100.8 fL (81.5-99.8); MEAN PLATELET VOLUME 10.2 fL (8.7-11.7); PLATELET CLUMPS FLAG 0 (0-99); RED BLOOD CELL COUNT 2.38 10^6/uL (4.18-5.33)
[2017-04-19 04:51] LABS: PLATELET COUNT 47 10^3/uL (150-400); RED CELL DISTRIBUTION WIDTH 21.6 % (11.5-15.2)
[2017-04-19 05:05] LABS: ALANINE AMINOTRANSFERASE 50 IU/L (9-52); ALBUMIN 2.4 g/dL (3.5-5.0); ALKALINE PHOSPHATASE 148 IU/L (38-126); ANION GAP 8 mEq/L (8-16); ASPARTATE AMINOTRANSFERASE 101 IU/L (14-46); BILIRUBIN,TOTAL 5.2 mg/dL (0.1-1.4); CALCIUM 7.9 mg/dL (8.5-10.4); CARBON DIOXIDE 20 mEq/l (22-31); CHLORIDE 110 mEq/L (97-110); CREATININE 0.5 mg/dL (0.6-1.0); GLOMERULAR FILTRATION RATE > 60; GLUCOSE 86 mg/dL (70-100); MAGNESIUM 1.7 mg/dL (1.6-2.3); POTASSIUM 3.7 mEq/L (3.5-5.2); SODIUM 138 mEq/L (134-144); TOTAL PROTEIN 6.8 g/dL (6.3-8.2)
[2017-04-19 05:12] LABS: BILIRUBIN-CONJUGATED 2.2 mg/dL (0.0-0.5)
[2017-04-19 05:19] LABS: HYPOCHROMIA 1+; MACROCYTES 1+; PLATELET ESTIMATE DECREASED (ADEQ); SCHISTOCYTES 1+
[2017-04-19] MEDS ORDERED: POTASSIUM CL 10 MEQ TAB PO ONE ×2 (07:52→20:16)
[2017-04-19] MEDS ORDERED: MAGNESIUM SULF 1 GM/DEXTROSE 100 ML IV ONE (08:22)
[2017-04-19] MEDS: PHYTONADIONE 10 MG in NS 50 ML IV SCH (09:06)
[2017-04-19] MEDS: FUROSEMIDE 40 MG TAB PO SCH (09:14)
[2017-04-19] MEDS: ACAMPROSATE CALCIUM 333 MG TAB PO SCH ×3 (09:14→21:12)
[2017-04-19] MEDS: FLUoxetine 20 MG CAP PO SCH (09:15)
[2017-04-19] MEDS: PANTOPRAZOLE SODIUM 40 MG TAB PO SCH ×2 (09:15→21:12)
[2017-04-19] MEDS: SPIRONOLACTONE 50 MG TAB PO SCH (09:15)
[2017-04-19] MEDS: POTASSIUM CL 20 MEQ TAB PO SCH (09:15)
[2017-04-19] MEDS: LACTULOSE 20 GM/30 ML UDCUP PO SCH ×3 (09:15→21:11)
--- NOTE | 2017-04-19 11:31 | SOAPPROG ---
SOAP Progress Note Assessment/Plan: Assessment:Plan: 1) hepatic hydrothorax - most of her fluid is in her chest, diuretics, daily weights, 2 gram sodium diet. I would be hesitant to tap her lung if she continues to do well 2) Pulm - large left effusion from her ascites moving up into her chest cavity 3) Cirrhosis - I ordered protime for next few days as best marker of acute changes in her liver function. her bilirubin is coming down already 4) Transplant - they do ask for 6 months sobriety and rehab. I did communicate with one of the hepatologists at [facility]. They would be happy to see her as outpt in near future. 04/19/17 11:20 Subjective: CC- hepatic hydrothorax with need for supplemental oxygen She is feeling OK, no n/v, no diarrhea, no encephalopathy asking about d'c home timing Objective: Vital Signs Temp Pulse Resp BP Pulse Ox 36.6 C 72 16 114/61 90 L 04/19/17 08:00 04/19/17 08:00 04/19/17 08:00 04/19/17 08:00 04/19/17 08:00 Laboratory Results 04/19/17 04:30 04/19/17 04:30 04/18/17 04/19/17 04/20/17 05:59 05:59 05:59 Intake Total 900 400 Balance 900 400 PT 29.0 SEC (12.0-15.0) H 04/18/17 04:25 INR 2.70 (0.83-1.16) H 04/18/17 04:25 A+Ox3, no asterixis CTA on right, decreased BS left lower and mid lung, no rhonchi or rales +BS, soft nt S1s2, rrr ICD10 Worksheet Patient Problems: Problems Problem Status Onset Alcoholic hepatitis Acute Dyspnea Acute Hypoxia Acute Liver failure Acute Pancytopenia Acute Pleural effusion, left Acute Altered mental status, unspecified Acute Cirrhosis of liver Acute
[2017-04-19] MEDS: LEVOTHYROXINE 75 MCG TAB PO SCH ×2 (12:18→15:30)
--- NOTE | 2017-04-19 13:10 | HOSPPROG ---
Hospitalist Progress Note Assessment/Plan: #Acute hypoxic resp failure: due to hydrothora. Cont diuretics #Hydrothorax: plan as above. Avoid tap with coagulopathy #Decompensated cirrhosis: LFTs improving -needs to be sober 6 months for transplant eval. Referral to [facility] #Macrocytic anemia: H/H trending down. Not actively bleeding. Endoscopy in Feb showed gastropathy, diverticulosis. #Ascites: cont diuretics. Can do paracentesis when INR improves #Hypothyroidism: LT4 #Thrombocytopenia: due to Etoh #Diet: low-Na #DVT ppx: SCDS Disp: warrants inpatient admission requiring serial labs, monitored diuresis Subjective: very tired after therapy Objective: Vital Signs Temp Pulse Resp BP Pulse Ox 37.0 C 81 20 114/62 93 04/19/17 12:00 04/19/17 12:00 04/19/17 12:00 04/19/17 12:00 04/19/17 12:00 Laboratory Results 04/19/17 04:30 04/19/17 04:30 04/18/17 04/19/17 04/20/17 05:59 05:59 05:59 Intake Total 900 400 Balance 900 400 PT 29.0 SEC (12.0-15.0) H 04/18/17 04:25 INR 2.70 (0.83-1.16) H 04/18/17 04:25 - Physical Exam Constitutional: no apparent distress Eyes: icteric sclera Ears, Nose, Mouth, Throat: moist mucous membranes Cardiovascular: regular rate and rhythym Respiratory: no respiratory distress, reduced air movement (left mid to base. Right base), dullness to percussion (left mid lung to base), other Gastrointestinal: normoactive bowel sounds Genitourinary: no bladder fullness Skin: warm Musculoskeletal: full muscle strength Neurologic: AAOx3, CN II-XII Intact, other (hand tremor with arm extension), No asterixes Psychiatric: interacting appropriately ICD10 Worksheet Patient Problems: Problems Problem Status Onset Alcoholic hepatitis Acute Dyspnea Acute Hypoxia Acute Liver failure Acute Pancytopenia Acute Pleural effusion, left Acute Altered mental status, unspecified Acute Cirrhosis of liver Acute
[2017-04-19 18:56] LABS: POTASSIUM 3.7 mEq/L (3.5-5.2)
[2017-04-19] MEDS: MELATONIN 3 MG TAB PO SCH (22:23)
[2017-04-20 04:59] LABS: % IMMATURE GRANULYOCYTES 0.3 % (0.0-1.1); ABSOLUTE IMMATURE GRANULOCYTES 0.01 10^3/uL (0.00-0.10); ADD DIFF? NO; ADD MORPH? YES; ADD SCAN? NO; ATYPICAL LYMPHOCYTE FLAG 20 (0-99); FRAGMENT RBC FLAG 20 (0-99); HEMATOCRIT 24.5 % (38.0-47.0); HEMOGLOBIN 7.9 g/dL (12.6-16.3); LEFT SHIFT FLG 0 (0-99); LIPEMIA HEMOLYSIS FLAG 80 (0-99); MEAN CELL HEMOGLOBIN 32.2 pg (27.9-34.1); MEAN CELL HEMOGLOBIN CONCENTR. 32.2 g/dL (32.4-36.7); MEAN PLATELET VOLUME 10.8 fL (8.7-11.7); PLATELET CLUMPS FLAG 0 (0-99); PLATELET COUNT 51 10^3/uL (150-400); RED BLOOD CELL COUNT 2.45 10^6/uL (4.18-5.33)
[2017-04-20 05:01] LABS: RED CELL DISTRIBUTION WIDTH 21.2 % (11.5-15.2)
[2017-04-20 05:05] LABS: INR 2.6 (0.83-1.16); PROTIME(PATIENT) 28.1 SEC (12.0-15.0)
[2017-04-20 05:12] LABS: ALANINE AMINOTRANSFERASE 53 IU/L (9-52); ALBUMIN 2.3 g/dL (3.5-5.0); ALKALINE PHOSPHATASE 145 IU/L (38-126); ANION GAP 9 mEq/L (8-16); ASPARTATE AMINOTRANSFERASE 106 IU/L (14-46); BILIRUBIN,TOTAL 5.4 mg/dL (0.1-1.4); CALCIUM 8.5 mg/dL (8.5-10.4); CARBON DIOXIDE 21 mEq/l (22-31); CHLORIDE 106 mEq/L (97-110); CREATININE 0.5 mg/dL (0.6-1.0); GLOMERULAR FILTRATION RATE > 60; GLUCOSE 95 mg/dL (70-100); MAGNESIUM 1.6 mg/dL (1.6-2.3); POTASSIUM 3.7 mEq/L (3.5-5.2); SODIUM 136 mEq/L (134-144); TOTAL PROTEIN 6.7 g/dL (6.3-8.2)
[2017-04-20] MEDS: LEVOTHYROXINE 75 MCG TAB PO SCH (05:13)
[2017-04-20 05:18] LABS: BILIRUBIN-CONJUGATED 2.5 mg/dL (0.0-0.5); BILIRUBIN-UNCONJUGATED 2.9 mg/dL (0.0-1.1)
[2017-04-20 05:51] LABS: HYPOCHROMIA 1+; MACROCYTES 1+; MICROCYTES 1+; PLATELET ESTIMATE DECREASED (ADEQ)
[2017-04-20] MEDS ORDERED: POTASSIUM CL 10 MEQ TAB PO ONE ×2 (08:04→21:00)
[2017-04-20] MEDS ORDERED: MAGNESIUM SULF 1 GM/DEXTROSE 100 ML IV ONE (08:18)
[2017-04-20] MEDS: PHYTONADIONE 10 MG in NS 50 ML IV SCH (08:27)
[2017-04-20] MEDS: ACAMPROSATE CALCIUM 333 MG TAB PO SCH ×3 (08:28→21:08)
[2017-04-20] MEDS: PANTOPRAZOLE SODIUM 40 MG TAB PO SCH ×2 (08:28→21:08)
[2017-04-20] MEDS: LACTULOSE 20 GM/30 ML UDCUP PO SCH ×3 (08:28→21:08)
[2017-04-20] MEDS: FUROSEMIDE 40 MG TAB PO SCH (08:28)
[2017-04-20] MEDS: SPIRONOLACTONE 50 MG TAB PO SCH (08:29)
[2017-04-20] MEDS: POTASSIUM CL 20 MEQ TAB PO SCH (08:29)
[2017-04-20] MEDS: FLUoxetine 20 MG CAP PO SCH (08:29)
--- NOTE | 2017-04-20 08:38 | HOSPPROG ---
Hospitalist Progress Note Assessment/Plan: #Acute hypoxic resp failure: resolved. Due to hydrothorax. Cont diuretics #Hydrothorax: plan as above. Avoid tap with coagulopathy and since clinically improved, now on RA #Decompensated cirrhosis: LFTs improving -needs to be sober 6 months for transplant eval. Referral to [facility] with Dr. Jones #Macrocytic anemia: H/H stable; not actively bleeding. Endoscopy in Feb showed gastropathy, diverticulosis. #Ascites: cont diuretics. Can do paracentesis when INR improves #Hypothyroidism: LT4 #Thrombocytopenia: due to Etoh #Diet: low-Na #DVT ppx: SCDS Disp: warrants inpatient admission requiring serial labs, monitored diuresis. Can likely DC in morning Subjective: no SOB or abd pain Objective: Vital Signs Temp Pulse Resp BP Pulse Ox 37.1 C 74 16 105/60 93 04/20/17 07:37 04/20/17 07:37 04/20/17 07:37 04/20/17 07:37 04/20/17 07:37 Laboratory Results 04/20/17 04:30 04/20/17 04:30 04/19/17 04/20/17 04/21/17 05:59 05:59 05:59 Intake Total 400 410 Balance 400 410 PT 28.1 SEC (12.0-15.0) H 04/20/17 04:30 INR 2.60 (0.83-1.16) H 04/20/17 04:30 - Physical Exam Constitutional: no apparent distress Eyes: icteric sclera Ears, Nose, Mouth, Throat: moist mucous membranes, hearing normal Cardiovascular: regular rate and rhythym, no murmur, rub, or gallop Respiratory: other (decreased BS left mid-lung to base) Gastrointestinal: normoactive bowel sounds, soft, non-tender abdomen, no palpable masses, No tenderness Genitourinary: no bladder fullness Skin: warm Musculoskeletal: full muscle strength Neurologic: AAOx3, CN II-XII Intact Psychiatric: interacting appropriately ICD10 Worksheet Patient Problems: Problems Problem Status Onset Alcoholic hepatitis Acute Dyspnea Acute Hypoxia Acute Liver failure Acute Pancytopenia Acute Pleural effusion, left Acute Altered mental status, unspecified Acute Cirrhosis of liver Acute
--- NOTE | 2017-04-20 16:02 | ASMTCMCOM ---
CM Note CM Note Notes: SWer met w/ Pt. today in her room alone. GUN PROFILER came in briefly for vitals and to give Pt. ice for her knee. Pt. and SWer have met before during a recent prior admission. Met for approximately 30 minutes. Pt. thought she might like a hospital bed in her home, but given the challenges of getting one through insurance, Pt. realized she could utilize her mother's twin bed that is in her garage (mother September 2016). Pt. has been living on one level of her home for safety reasons. Pt. has learned from Dr. Maurice in GI that she will need a liver transplant to survive fci. Pt. has a f/u appt. with Dr. Nava for next Sunday, 04/27. Will learn more about process of liver transplant then. At Pt's request, SWer provided resource information on how to apply for disability benefits, a list of professionals to assist with managing disability application and potential appeals, and information about how to apply utilizing [employer] online for SNAP (food assistance) and possibly Aid to the Needy and Disabled. Pt. grateful. Still states her closest supports are her brother Kalia and his , Minerva. Pt. to d/c home with Mur[facility] (RN, PT, OT). Likely d/c tomorrow - Sunday. Muriel will have new RN assigned, since current RN was not a good fit and had some problems with responsibly coming to see Pt. Mallory, liaison, came to meet w/ Pt. today to rectify matters. Please fax Muriel updates and d/c paperwork through [employer] when Pt. ready for d/c. Date Signed: 04/20/2017 04:01 PM Electronically Signed By:Alyssa Alcala LCSW
--- NOTE | 2017-04-20 18:36 | SOAPPROG ---
SOAP Progress Note Assessment/Plan: Assessment:Plan: 1) hepatic hydrothorax - most of her fluid is in her chest, diuretics, daily weights, 2 gram sodium diet. I would be hesitant to tap her lung if she continues to do well 2) Pulm - large left effusion from her ascites moving up into her chest cavity 3) Cirrhosis - I ordered protime for next few days as best marker of acute changes in her liver function. her bilirubin is coming down already 4) Transplant - they do ask for 6 months sobriety and rehab. I did communicate with one of the hepatologists at [facility]. They would be happy to see her as outpt in near future. 04/19/17 11:20 04/20/17 18:33 as above, doing better today with no need for supplemental oxygen weight is down 3 kg 1) Hepatic hydrothorax - current diuretics and 2 gram sodium diet, daily weight. pt saw it trainer, I reviewed 200mg sodium diet, she will purchase a scale for daily weights. If losing > 2 pounds per day we need to decrease diuretics. If weight going up, reduce sodium intake and increase diuretics 2) Pulm - no oxygen today and she is maintaining sats > 90% 3) Cirrhosis - follow protime & bilirubin, will need OLT eval at [facility], she has f/u appt next week in our office with Dr. Brandy Bedoya to pick and shovel worker service at 5pm today Subjective: cc- cirrhosis, hepatic hydrothorax, ascites pt off oxygen, weight down, understands 200mg diet asking about going home - prob tomorrow Objective: Vital Signs Temp Pulse Resp BP Pulse Ox 37.0 C 77 16 113/63 92 04/20/17 15:41 04/20/17 15:41 04/20/17 15:41 04/20/17 15:41 04/20/17 15:41 Laboratory Results 04/20/17 04:30 04/19/17 04/20/17 04/21/17 05:59 05:59 05:59 Intake Total 072 303 8921 Balance 984 261 5599 PT 28.1 SEC (12.0-15.0) H 04/20/17 04:30 INR 2.60 (0.83-1.16) H 04/20/17 04:30 A+ox3, no asterixis CTA right, decreased left S1S2, RRR +BS, soft nt Laboratory Tests 04/17/17 04/18/17 04/18/17 11:15 04:25 04:25 Hgb 7.6 L Hct 23.4 L PT 29.0 H INR 2.70 H Total Bilirubin 7.7 H 04/18/17 04/19/17 04/19/17 04:25 04:30 04:30 Hgb 7.7 L Hct 24.0 L PT INR Total Bilirubin 6.0 H 5.2 H 04/20/17 04/20/17 04:30 04:30 Hgb Hct PT 28.1 H INR 2.60 H Total Bilirubin 5.4 H ICD10 Worksheet Patient Problems: Problems Problem Status Onset Alcoholic hepatitis Acute Dyspnea Acute Hypoxia Acute Liver failure Acute Pancytopenia Acute Pleural effusion, left Acute Altered mental status, unspecified Acute Cirrhosis of liver Acute
[2017-04-20 18:53] LABS: POTASSIUM 3.5 mEq/L (3.5-5.2)
[2017-04-20] MEDS: MELATONIN 3 MG TAB PO SCH (22:57)
[2017-04-21] MEDS: LEVOTHYROXINE 75 MCG TAB PO SCH (05:16)
[2017-04-21 06:05] LABS: ALANINE AMINOTRANSFERASE 52 IU/L (9-52); ALBUMIN 2.6 g/dL (3.5-5.0); ALKALINE PHOSPHATASE 154 IU/L (38-126); ANION GAP 11 mEq/L (8-16); ASPARTATE AMINOTRANSFERASE 108 IU/L (14-46); BILIRUBIN,TOTAL 4.9 mg/dL (0.1-1.4); CALCIUM 8.3 mg/dL (8.5-10.4); CARBON DIOXIDE 20 mEq/l (22-31); CHLORIDE 106 mEq/L (97-110); CREATININE 0.5 mg/dL (0.6-1.0); GLOMERULAR FILTRATION RATE > 60; GLUCOSE 86 mg/dL (70-100); MAGNESIUM 1.5 mg/dL (1.6-2.3); SODIUM 137 mEq/L (134-144); TOTAL PROTEIN 7.2 g/dL (6.3-8.2)
[2017-04-21 06:11] LABS: BILIRUBIN-CONJUGATED 2.3 mg/dL (0.0-0.5); BILIRUBIN-UNCONJUGATED 2.6 mg/dL (0.0-1.1)
[2017-04-21 06:13] LABS: INR 2.49 (0.83-1.16); PROTIME(PATIENT) 27.2 SEC (12.0-15.0)
[2017-04-21] MEDS ORDERED: MAGNESIUM SULF 1 GM/DEXTROSE 100 ML IV ONE (08:05)
--- NOTE | 2017-04-21 08:25 | HOSPPROG ---
Hospitalist Progress Note Assessment/Plan: #Acute hypoxic resp failure: resolved. Due to hydrothorax. Cont diuretics #Hydrothorax: plan as above. Avoid tap with coagulopathy and since clinically improved, now requiring min oxygen needs #Decompensated cirrhosis: LFTs improving -needs to be sober 6 months for transplant eval. Referral to [facility] with Dr. Jones #Macrocytic anemia: H/H stable; not actively bleeding. Endoscopy in Feb showed gastropathy, diverticulosis. #Ascites: cont diuretics. Can do paracentesis when INR improves #Hypothyroidism: LT4 #Depression: hepatically-dosed prozac. #Thrombocytopenia: due to Etoh #Diet: low-Na #DVT ppx: SCDS Disp: DC today Subjective: denies SOB Objective: Vital Signs Temp Pulse Resp BP Pulse Ox 36.8 C 77 14 108/71 91 L 04/21/17 08:00 04/21/17 08:00 04/21/17 08:00 04/21/17 08:00 04/21/17 08:00 Laboratory Results 04/20/17 04:30 04/21/17 04:39 04/20/17 04/21/17 04/22/17 05:59 05:59 05:59 Intake Total 410 1100 Balance 410 1100 PT 27.2 SEC (12.0-15.0) H 04/21/17 04:39 INR 2.49 (0.83-1.16) H 04/21/17 04:39 - Physical Exam Constitutional: no apparent distress Eyes: PERRL, icteric sclera Ears, Nose, Mouth, Throat: moist mucous membranes, hearing normal Cardiovascular: regular rate and rhythym, no murmur, rub, or gallop Respiratory: no respiratory distress, other (decreased BS left lung base) Gastrointestinal: normoactive bowel sounds, soft, non-tender abdomen, distension Genitourinary: no bladder fullness Skin: warm Musculoskeletal: full muscle strength Neurologic: AAOx3, CN II-XII Intact Psychiatric: interacting appropriately ICD10 Worksheet Patient Problems: Problems Problem Status Onset Alcoholic hepatitis Acute Altered mental status, unspecified Acute Cirrhosis of liver Acute Dyspnea Acute Hypoxia Acute Liver failure Acute Pancytopenia Acute Pleural effusion, left Acute
[2017-04-21] MEDS ORDERED: FLUoxetine 20 MG CAP PO SCH (09:00)
[2017-04-21] MEDS: LACTULOSE 20 GM/30 ML UDCUP PO SCH (09:55)
[2017-04-21] MEDS: ACAMPROSATE CALCIUM 333 MG TAB PO SCH (09:55)
[2017-04-21] MEDS: SPIRONOLACTONE 50 MG TAB PO SCH (09:56)
[2017-04-21] MEDS: POTASSIUM CL 20 MEQ TAB PO SCH (09:57)
[2017-04-21] MEDS: FUROSEMIDE 40 MG TAB PO SCH (09:57)
[2017-04-21] MEDS: PANTOPRAZOLE SODIUM 40 MG TAB PO SCH (09:58)
--- NOTE | 2017-04-21 10:52 | PDHOMEO2F ---
Home Oxygen Face to Face Home Orders: I certify that a physician or a nurse practitioner or physician's middle school assistant principal has had a [id number] encounter with this patient on the date of this order due to the diagnosis listed, which relates to the primary reason the patient requires home oxygen. Alternative treatments have been tried, or considered, and deemed ineffective. It is anticipated that supplemental oxygen will result in improvement with treatment. Home oxygen qualifying diagnosis: hypoxia SpO2 on room air (%): 83 with sleeping Frequency of home oxygen needed: during sleep Home oxygen liters per minute: 2 Home oxygen delivery device: nasal cannula Concentrator: No E-tanks for mobility and back up: Yes If ordering portable O2, is the patient mobile in the home?: Yes I certify that, based on these findings, the home oxygen is medically necessary for this patient for the following length of time. Length of time home oxygen needed: 1 month
--- NOTE | 2017-04-21 11:22 | SOAPPROG ---
SOAP Progress Note Assessment/Plan: Assessment: ETOH liver disease hydrothorax Coagulopathy overall responding to diuretics and low sodium diet Plan:Agree with discharge home Patient will remian abstinent form ETOH Continue Lasix and Aldactone She has f/u with Dr. Nava next week 04/21/17 11:20 Subjective: CC sob Pt feeling better post diuretics ready to go home Objective: Vital Signs Temp Pulse Resp BP Pulse Ox 36.8 C 77 14 108/71 83 L 04/21/17 08:00 04/21/17 08:00 04/21/17 08:00 04/21/17 08:00 04/21/17 08:00 Laboratory Results 04/20/17 04:30 04/21/17 04:39 04/20/17 04/21/17 04/22/17 05:59 05:59 05:59 Intake Total 410 1100 Balance 410 1100 PT 27.2 SEC (12.0-15.0) H 04/21/17 04:39 INR 2.49 (0.83-1.16) H 04/21/17 04:39 Physical Exam - Physical Exam General Appearance: alert, no apparent distress Respiratory: normal breath sounds Cardiac/Chest: regular rate, rhythm Abdomen: non-tender, soft ICD10 Worksheet Patient Problems: Problems Problem Status Onset Alcoholic hepatitis Acute Dyspnea Acute Hypoxia Acute Liver failure Acute Pancytopenia Acute Pleural effusion, left Acute Altered mental status, unspecified Acute Cirrhosis of liver Acute
[2017-04-21 12:07] VITALS: BP 115/60; TEMP 98.7
--- NOTE | 2017-04-21 12:07 | PDIAF ---
- Diagnosis Diagnosis: Cirrhosis, coagulopathy Code Status: Full Code - Medication Management Discharge Medications: Medications to Continue on Transfer Levothyroxine [Synthroid 75 mcg (*)] 75 mcg PO DAILY@06 03/24/17 [Last Taken ] Acamprosate Calcium [Campral 333 MG (*)] 666 mg PO TID #180 tab 04/02/17 [Last Taken 04/16/17 21:00] Lactulose 20 gm PO TID 30 Days ml 04/02/17 [Last Taken 04/16/17] Melatonin [Melatonin 3 MG (*)] 3 mg PO HS tab 04/02/17 [Last Taken 04/16/17] Pantoprazole Sodium [Protonix 40mg (*)] 40 mg PO BID #60 tab 04/02/17 [Last Taken 04/16/17 21:00] Fluoxetine HCl [Prozac 40 mg] 80 mg PO DAILY 04/17/17 [Last Taken 04/16/17] Potassium Cl [Klor-Con 20 meq (*)] 20 meq PO DAILY 04/17/17 [Last Taken 04/16/17 ] FLUoxetine [Prozac 20 MG (*)] 40 mg PO DAILY #60 cap 04/20/17 [Last Taken Unknown] Furosemide [Lasix 40 MG (*)] 40 mg PO DAILY #30 tab 04/20/17 [Last Taken Unknown ] Spironolactone [Aldactone] 100 mg PO DAILY #60 tab 04/21/17 [Last Taken Unknown] Discharge Medications: Refer to the Discharge Home Medication list for PRN reason. - Orders Services needed: Home Care, Registered Nurse, Certified Insole Tack Puller Hand, Master Belt Molder, Physical Therapy, Occupational Therapy Home Care Face to Face: I certify that this patient was under my care and that I had the required [id number] encounter meeting the encounter requirements on the discharge day. My findings support the fact that the patient is homebound as defined in Home Care Face to Face Continued: CMS Chapter 7 Medicare Benefits Manual 30.1.1 , The condition of the patient is such that there exists a normal inability to leave home and consequently, leaving home would require a considerable and taxing effort. Diet Recommendation: sodium restricted (less than 2 grams a day), fluid restriction (use comment for amount) (2 liters or less a day) - Follow Up Care Current Providers and Referrals: Daniel Nava [Medical Doctor] - follow up in 1 week Unknown,Unknown [Primary Care Provider] - follow up in 1 week ()
[2017-04-21 12:13] VITALS: PULSE 64; RESP 15; O2SAT 87
--- NOTE | 2017-04-21 12:17 | PDHOMEO2F ---
Home Oxygen Face to Face Home Orders: I certify that a physician or a nurse practitioner or physician's evaluation assistant has had a [id number] encounter with this patient on the date of this order due to the diagnosis listed, which relates to the primary reason the patient requires home oxygen. Alternative treatments have been tried, or considered, and deemed ineffective. It is anticipated that supplemental oxygen will result in improvement with treatment. Home oxygen qualifying diagnosis: hydrothorax SpO2 on room air (%): 87 Frequency of home oxygen needed: continuous Home oxygen liters per minute: 2 Home oxygen delivery device: nasal cannula Concentrator: Yes E-tanks for mobility and back up: Yes If ordering portable O2, is the patient mobile in the home?: Yes I certify that, based on these findings, the home oxygen is medically necessary for this patient for the following length of time. Length of time home oxygen needed: 1 month
--- NOTE | 2017-04-21 12:58 | ASMTCMCOM ---
CM Note CM Note Notes: CM Discharge Note: Patient discharging home with home health. Orders sent to [facility] for PT/OT/RN/MIRROR SPECIALIST. Respiratory therapy to set up home O2 services. Patient is in agreement with discharge plan and has a friend coming to transport her home. Date Signed: 04/21/2017 12:57 PM Electronically Signed By:Lissa Uriarte RN
--- NOTE | 2017-04-21 13:47 | GDS ---
[f rep st] DISCHARGE SUMMARY DISCHARGE DIAGNOSES: 1. Alcoholic cirrhosis, hydrothorax, coagulopathy. 2. Hypothyroidism. 3. Depression. 4. Microcytic anemia. 5. Acute hypoxic respiratory failure. 6. Thrombocytopenia. HISTORY OF PRESENT ILLNESS: A 57-year-old female with a history of alcohol abuse, who was recently admitted for alcoholic hepatitis. She has been sober for 12 weeks, but during that time, she had progressive symptoms of increased abdominal distention, swelling, and confusion. She had increased shortness of breath. No cough or fever. HOSPITAL COURSE BY PROBLEM: 1. Acute hypoxic respiratory failure: due to hydrothorax from underlying cirrhosis. Started on spironolactone, Lasix, per GI recommendations. They were hesitant about tapping given coagulopathy, as well as quick accumulation. Her oxygen needs have improved, using less at this time; mainly with ambulation. Continue diuretics. 2. Alcoholic cirrhosis: spironolactone, Lasix. Lactulose with a goal of 2 to 3 bowel movements a day. Case has been discussed with Dr. Harris at [facility] to start the process for liver transplant. 3. 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 INR remained elevated to 2.6 while here , despite vitamin K. We opted to medically treat with diuretics rather than thoracentesis, as the patient's oxygen has improved, and really only needing oxygen with walking. She will follow up with her PCP in GI. If needed, could always consider an outpatient thoracentesis. 4. Coagulopathy secondary to cirrhosis. 5. Hypothyroidism: Levothyroxine. 6. Depression: Hepatically dosed Prozac. She will reduce it by 50% (now 40 mg ). 7. Thrombocytopenia: Secondary to alcohol. No evidence of bleeding. 8. Microcytic anemia. H and H stable. Endoscopy in February showed gastroplasty and diverticulosis. No active bleeding now. DISPOSITION: The patient is stable for discharge. DISCHARGE INSTRUCTIONS: 1. She was counseled extensively on a low-sodium diet, less than 2 g. 2. 2 L fluid restriction. 3. She was advised to weigh herself and if she gains more than 2 pounds, she should call her PCP or Gastroenterology. 4. Nutrition saw her here as well. FOLLOWUP: 1. Dr. Nava, next week. 2. Her PCP. BILLING: Time spent on discharge: 60 minutes, counseling patient on medications, followup plan, dietary needs, coordination of oxygen and discharge. /[id number]/MODL MTDD
== END 2017-04-21 15:48 | disposition home health service (06) | DRG 186 ==
LOC: CED 09:12 → CEDHOLD 12:25 → F3E 13:57
PROVIDERS: ADMIT Surgery; ATTEND Internal Medicine
DX: J94.8 Other specified pleural conditions (principal); K70.31 Alcoholic cirrhosis of liver with ascites; J96.01 Acute respiratory failure with hypoxia; D69.6 Thrombocytopenia, unspecified; F10.21 Alcohol dependence, in remission; E87.6 Hypokalemia; D50.9 Iron deficiency anemia, unspecified; E03.9 Hypothyroidism, unspecified; F32.9 Major depressive disorder, single episode, unspecified; F41.9 Anxiety disorder, unspecified; Z87.891 Personal history of nicotine dependence
CPT/HCPCS: 71020-PO; 71275-PO; 80048-PO; 80076-PO; 83880-PO; 84484-PO; 85025-PO; 85378-PO; 85610-PO; 85730-PO; 97110-GP; 97116-GP; 97162-GP; 97166-GO; 97535-GO; J3430; J3475; Q9967

== ENCOUNTER 2017-05-04 14:47 | Inpatient (IN) | payer MEDICAID ==
[2017-05-04 15:47] LABS: % IMMATURE GRANULYOCYTES 0.4 % (0.0-1.1); ABSOLUTE IMMATURE GRANULOCYTES 0.03 10^3/uL (0.00-0.10); ADD DIFF? NO; ADD MORPH? NO; ADD SCAN? NO; ATYPICAL LYMPHOCYTE FLAG 10 (0-99); FRAGMENT RBC FLAG 20 (0-99); HEMOGLOBIN 8.2 g/dL (12.6-16.3); LEFT SHIFT FLG 0 (0-99); LIPEMIA HEMOLYSIS FLAG 80 (0-99); MEAN CELL HEMOGLOBIN 32.4 pg (27.9-34.1); MEAN CELL HEMOGLOBIN CONCENTR. 32.8 g/dL (32.4-36.7); MEAN CELL VOLUME 98.8 fL (81.5-99.8); MEAN PLATELET VOLUME 11.8 fL (8.7-11.7); PLATELET CLUMPS FLAG 0 (0-99); PLATELET COUNT 112 10^3/uL (150-400); RED BLOOD CELL COUNT 2.53 10^6/uL (4.18-5.33); RED CELL DISTRIBUTION WIDTH 19.1 % (11.5-15.2)
[2017-05-04 15:54] LABS: ALANINE AMINOTRANSFERASE 55 IU/L (9-52); ALBUMIN 3.3 g/dL (3.5-5.0); ALKALINE PHOSPHATASE 154 IU/L (38-126); ANION GAP 17 mEq/L (8-16); ASPARTATE AMINOTRANSFERASE 81 IU/L (14-46); BILIRUBIN,TOTAL 9.1 mg/dL (0.1-1.4); BILIRUBIN-CONJUGATED 3.3 mg/dL (0.0-0.5); BILIRUBIN-UNCONJUGATED 5.8 mg/dL (0.0-1.1); CALCIUM 9.3 mg/dL (8.5-10.4); CARBON DIOXIDE 18 mEq/l (22-31); CHLORIDE 94 mEq/L (97-110); CREATININE 0.8 mg/dL (0.6-1.0); GLOMERULAR FILTRATION RATE > 60; GLUCOSE 113 mg/dL (70-100); SODIUM 129 mEq/L (134-144); TOTAL PROTEIN 8.6 g/dL (6.3-8.2)
[2017-05-04] MEDS ORDERED: ONDANSETRON 4 MG/2 ML VIAL IVP ONE (15:59)
[2017-05-04] MEDS ORDERED: NS 1,000 ML IV ONE (15:59)
--- NOTE | 2017-05-04 15:59 | EDPHY ---
HPI/HX/ROS/PE/MDM - Data Points Laboratory Results: Laboratory Results 05/04/17 15:26 05/04/17 15:26 05/04/17 05/04/17 05/04/17 15:26 15:26 15:26 WBC 7.28 10^3/uL 10^3/uL (3.80-9.50) RBC 2.53 10^6/uL L 10^6/uL (4.18-5.33) Hgb 8.2 g/dL L g/dL (12.6-16.3) Hct 25.0 % L % (38.0-47.0) MCV 98.8 fL fL (81.5-99.8) MCH 32.4 pg pg (27.9-34.1) MCHC 32.8 g/dL g/dL (32.4-36.7) RDW 19.1 % H % (11.5-15.2) Plt Count 112 10^3/uL L 10^3/uL (150-400) MPV 11.8 fL H fL (8.7-11.7) Neut % (Auto) 75.8 % H % (39.3-74.2) Lymph % (Auto) 14.1 % L % (15.0-45.0) [place] % (Auto) 9.1 % % (4.5-13.0) Eos % (Auto) 0.3 % L % (0.6-7.6) Baso % (Auto) 0.3 % % (0.3-1.7) Nucleat RBC Rel Count 0.0 % % (0.0-0.2) Absolute Neuts (auto) 5.52 10^3/uL 10^3/uL (1.70-6.50) Absolute Lymphs (auto) 1.03 10^3/uL 10^3/uL (1.00-3.00) Absolute Monos (auto) 0.66 10^3/uL 10^3/uL (0.30-0.80) Absolute Eos (auto) 0.02 10^3/uL L 10^3/uL (0.03-0.40) Absolute Basos (auto) 0.02 10^3/uL 10^3/uL (0.02-0.10) Absolute Nucleated RBC 0.00 10^3/uL 10^3/uL (0-0.01) Immature Gran % 0.4 % % (0.0-1.1) Immature Gran # 0.03 10^3/uL 10^3/uL (0.00-0.10) VBG Lactic Acid 3.9 mmol/L H mmol/L (0.7-2.1) Sodium 129 mEq/L L mEq/L (134-144) Potassium 4.0 mEq/L mEq/L (3.5-5.2) Chloride 94 mEq/L L mEq/L (97-110) Carbon Dioxide 18 mEq/l L mEq/l (22-31) Anion Gap 17 mEq/L H mEq/L (8-16) BUN 19 mg/dL mg/dL (7-23) Creatinine 0.8 mg/dL mg/dL (0.6-1.0) Estimated GFR > 60 Glucose 113 mg/dL H mg/dL (70-100) Calcium 9.3 mg/dL mg/dL (8.5-10.4) Total Bilirubin 9.1 mg/dL H mg/dL (0.1-1.4) Conjugated Bilirubin 3.3 mg/dL H mg/dL (0.0-0.5) Unconjugated Bilirubin 5.8 mg/dL H mg/dL (0.0-1.1) AST 81 IU/L H IU/L (14-46) ALT 55 IU/L H IU/L (9-52) Alkaline Phosphatase 154 IU/L H IU/L (38-126) Total Protein 8.6 g/dL H g/dL (6.3-8.2) Albumin 3.3 g/dL L g/dL (3.5-5.0) General Time Seen by Provider: 05/04/17 15:45 Initial Vital Signs: Initial Vital Signs Temperature (C) 37.4 C 05/04/17 15:01 Heart Rate 91 05/04/17 15:01 Respiratory Rate 20 05/04/17 15:01 Blood Pressure 115/62 05/04/17 15:01 O2 Sat (%) 99 05/04/17 15:01 O2 Delivery Mode Room Air Allergies/Adverse Reactions: codeine Allergy (Verified 04/17/17 09:23) Vomiting Penicillins Allergy (Verified 04/17/17 09:23) Other-Enter Comments Home Medications: Medication Instructions Recorded Levothyroxine [Synthroid 75 mcg 75 mcg PO DAILY@06 03/24/17 (*)] Acamprosate Calcium [Campral 333 666 mg PO TID #180 tab 04/02/17 MG (*)] Lactulose 20 gm PO TID 30 Days ml 04/02/17 Melatonin [Melatonin 3 MG (*)] 3 mg PO HS tab 04/02/17 Pantoprazole Sodium [Protonix 40mg 40 mg PO BID #60 tab 04/02/17 (*)] Fluoxetine HCl [Prozac 40 mg] 80 mg PO DAILY 04/17/17 FLUoxetine [Prozac 20 MG (*)] 40 mg PO DAILY #60 cap 04/20/17 Furosemide [Lasix 40 MG (*)] 40 mg PO DAILY #30 tab 04/20/17 Spironolactone [Aldactone] 100 mg PO DAILY #60 tab 04/21/17 Departure - Departure Condition: Fair Referrals: NOT,SURE [Other] - As per Instructions
--- NOTE | 2017-05-04 16:02 | EDPHY ---
H & P Stated Complaint: C/O vomiting and confusion x2 days Time Seen by Provider: 05/04/17 15:45 HPI/ROS: CHIEF COMPLAINT: Nausea and vomiting HISTORY OF PRESENT ILLNESS: The patient is a 57 y/o female in liver failure, complaining of nausea, vomiting , and confusion for 3 days. She is currently being treated for alcoholic cirrhosis. She was last admitted to the hospital 1.5 weeks ago. She has been having nausea vomiting for the last 3 days and has felt generally weak. She is unsure if her bowel movements are black. Her brother checked on her today noted that she seemed altered and confused. Her mental status was similar to her 1st diagnosis of encephalitis. Denies any fevers or chills. No chest pain or shortness of breath. The patient is a poor historian, so her brother has provided much of the information regarding her HPI. Prior medical records reviewed including discharge summary with Dr. Marinelli on . REVIEW OF SYSTEMS: A comprehensive 10 point review of systems is otherwise negative aside from elements mentioned in the history of present illness. PMH: Alcoholic cirrhosis, hypothyroidism, depression, microcytic anemia, thrombocytopenia SOCIAL HISTORY: Brother at bedside, lives in [place], [place] Cleaner: Dr. Bailey PHYSICAL EXAM: Gen: Jaundice, Awake, Alert, No Distress HEENT: Nose: no rhinorrhea Eyes: Moderate icterus, PERRLA, EOMI Mouth: Moist mucosa Neck: Supple, no JVD Chest: nontender, lungs clear to auscultation Heart: S1, S2 normal, 4/6 murmur Abd: Mildly diffuse abdominal tenderness, hepatomegaly, no ascites. Soft, no guarding Back: no CVA tenderness, no midline tenderness Ext: no edema, non-tender Skin: no rash Neuro: CN II-XII intact, Sensation grossly intact, Strength 5/5 in bilateral upper and lower extremities - Personal History Current Tetanus Diphtheria and Acellular Pertussis (TDAP): Yes Tetanus Vaccine Date: 2015 - Medical/Surgical History Hx Asthma: No Hx Chronic Respiratory Disease: No Hx Diabetes: No Hx Cardiac Disease: No Hx Renal Disease: No Hx Cirrhosis: Yes Hx Alcoholism: Yes Hx HIV/AIDS: No Hx Splenectomy or Spleen Trauma: No Other PMH: cirhossis, hypothyroid, depression, anxiety. Surg-left breast benign tumor - Social History Smoking Status: Current every day smoker Constitutional: Initial Vital Signs Temperature (C) 37.4 C 05/04/17 15:01 Heart Rate 91 05/04/17 15:01 Respiratory Rate 20 05/04/17 15:01 Blood Pressure 115/62 05/04/17 15:01 O2 Sat (%) 99 05/04/17 15:01 O2 Delivery Mode Room Air Allergies/Adverse Reactions: codeine Allergy (Verified 04/17/17 09:23) Vomiting Penicillins Allergy (Verified 04/17/17 09:23) Other-Enter Comments Home Medications: Medication Instructions Recorded Levothyroxine [Synthroid 75 mcg 75 mcg PO DAILY@06 03/24/17 (*)] Acamprosate Calcium [Campral 333 666 mg PO TID #180 tab 04/02/17 MG (*)] Lactulose 20 gm PO TID 30 Days ml 04/02/17 Melatonin [Melatonin 3 MG (*)] 3 mg PO HS tab 04/02/17 Pantoprazole Sodium [Protonix 40mg 40 mg PO BID #60 tab 04/02/17 (*)] FLUoxetine [Prozac 20 MG (*)] 40 mg PO DAILY #60 cap 04/20/17 Furosemide [Lasix 40 MG (*)] 40 mg PO DAILY #30 tab 04/20/17 Spironolactone [Aldactone] 100 mg PO DAILY #60 tab 04/21/17 Medical Decision Making - Diagnostics Imaging Results: Imaging Impressions Chest X-Ray 05/04/17 15:59 Impression: 1. Significant decrease in left effusion with only minimal blunting remaining at the left costophrenic angle. Imaging: I viewed and interpreted images myself ED Course/Re-evaluation: The patient is a 57 y/o female in liver failure presenting with confusion, mild diffuse abdominal tenderness, and nausea. Plan on labs, chest x-ray, 1L IV NS, and 4mg IV Zofran. 1740: Spoke to hospitalist, accepts admission of this patient for dehydration, liver failure, and altered mental status. Reassessed patient and discussed plan for admission. Patient and her brother are comfortable with this plan. - Data Points Laboratory Results: Laboratory Results 05/04/17 15:26 05/04/17 15:26 05/04/17 05/04/17 05/04/17 15:26 15:26 15:26 WBC RBC Hgb Hct MCV MCH MCHC RDW Plt Count MPV Neut % (Auto) Lymph % (Auto) [place] % (Auto) Eos % (Auto) Baso % (Auto) Nucleat RBC Rel Count Absolute Neuts (auto) Absolute Lymphs (auto) Absolute Monos (auto) Absolute Eos (auto) Absolute Basos (auto) Absolute Nucleated RBC Immature Gran % Immature Gran # VBG Lactic Acid 3.9 mmol/L H mmol/L (0.7-2.1) Sodium Potassium Chloride Carbon Dioxide Anion Gap BUN Creatinine Estimated GFR Glucose Calcium Total Bilirubin Conjugated Bilirubin Unconjugated Bilirubin AST ALT Alkaline Phosphatase Troponin I < 0.012 ng/mL ng/mL (0.000-0.034) Total Protein Albumin Urine Color MELO Urine Appearance HAZY Urine pH 5.0 (5.0-7.5) Ur Specific [place] 1.019 (1.002-1.030) Urine Protein NEGATIVE (NEGATIVE) Urine Ketones NEGATIVE (NEGATIVE) Urine Blood NEGATIVE (NEGATIVE) Urine Nitrate NEGATIVE (NEGATIVE) Urine Bilirubin NEGATIVE (NEGATIVE) Urine Urobilinogen 2.0 EU H EU (0.2-1.0) Ur Leukocyte Esterase NEGATIVE (NEGATIVE) Urine Glucose NEGATIVE (NEGATIVE) 05/04/17 05/04/17 15:26 15:26 WBC 7.28 10^3/uL 10^3/uL (3.80-9.50) RBC 2.53 10^6/uL L 10^6/uL (4.18-5.33) Hgb 8.2 g/dL L g/dL (12.6-16.3) Hct 25.0 % L % (38.0-47.0) MCV 98.8 fL fL (81.5-99.8) MCH 32.4 pg pg (27.9-34.1) MCHC 32.8 g/dL g/dL (32.4-36.7) RDW 19.1 % H % (11.5-15.2) Plt Count 112 10^3/uL L 10^3/uL (150-400) MPV 11.8 fL H fL (8.7-11.7) Neut % (Auto) 75.8 % H % (39.3-74.2) Lymph % (Auto) 14.1 % L % (15.0-45.0) [place] % (Auto) 9.1 % % (4.5-13.0) Eos % (Auto) 0.3 % L % (0.6-7.6) Baso % (Auto) 0.3 % % (0.3-1.7) Nucleat RBC Rel Count 0.0 % % (0.0-0.2) Absolute Neuts (auto) 5.52 10^3/uL 10^3/uL (1.70-6.50) Absolute Lymphs (auto) 1.03 10^3/uL 10^3/uL (1.00-3.00) Absolute Monos (auto) 0.66 10^3/uL 10^3/uL (0.30-0.80) Absolute Eos (auto) 0.02 10^3/uL L 10^3/uL (0.03-0.40) Absolute Basos (auto) 0.02 10^3/uL 10^3/uL (0.02-0.10) Absolute Nucleated RBC 0.00 10^3/uL 10^3/uL (0-0.01) Immature Gran % 0.4 % % (0.0-1.1) Immature Gran # 0.03 10^3/uL 10^3/uL (0.00-0.10) VBG Lactic Acid Sodium 129 mEq/L L mEq/L (134-144) Potassium 4.0 mEq/L mEq/L (3.5-5.2) Chloride 94 mEq/L L mEq/L (97-110) Carbon Dioxide 18 mEq/l L mEq/l (22-31) Anion Gap 17 mEq/L H mEq/L (8-16) BUN 19 mg/dL mg/dL (7-23) Creatinine 0.8 mg/dL mg/dL (0.6-1.0) Estimated GFR > 60 Glucose 113 mg/dL H mg/dL (70-100) Calcium 9.3 mg/dL mg/dL (8.5-10.4) Total Bilirubin 9.1 mg/dL H mg/dL (0.1-1.4) Conjugated Bilirubin 3.3 mg/dL H mg/dL (0.0-0.5) Unconjugated Bilirubin 5.8 mg/dL H mg/dL (0.0-1.1) AST 81 IU/L H IU/L (14-46) ALT 55 IU/L H IU/L (9-52) Alkaline Phosphatase 154 IU/L H IU/L (38-126) Troponin I Total Protein 8.6 g/dL H g/dL (6.3-8.2) Albumin 3.3 g/dL L g/dL (3.5-5.0) Urine Color Urine Appearance Urine pH Ur Specific [place] Urine Protein Urine Ketones Urine Blood Urine Nitrate Urine Bilirubin Urine Urobilinogen Ur Leukocyte Esterase Urine Glucose Medications Given: Sodium Chloride (Ns) 1,000 mls @ 100 mls/hr IV CONT SARA Stop: 10/31/17 17:59 Last Admin: 05/04/17 19:25 Dose: 1,000 mls Oxycodone HCl (Oxycodone Ir) 5 - 10 mg PO Q3HRS PRN PRN Reason: Pain, Severe Able to Take PO Stop: 05/14/17 17:52 Last Admin: 05/04/17 19:23 Dose: 10 mg Discontinued Medications Sodium Chloride (Ns) 1,000 mls @ 0 mls/hr IV ONCE ONE; Wide Open PRN Reason: Protocol Stop: 05/04/17 16:00 Last Admin: 05/04/17 16:17 Dose: 1,000 mls Ondansetron HCl (Zofran) 4 mg IVP EDNOW ONE Stop: 05/04/17 16:00 Last Admin: 05/04/17 16:18 Dose: 4 mg Departure - Departure Disposition: [facility] Clinical Impression: Dehydration Altered mental status, unspecified Qualifiers: Altered mental status type: unspecified Qualified Code(s): R41.82 - Altered mental status, unspecified Condition: Fair Report Scribed for: Jordy Barreto Report Scribed by: Viola Hodges Date of Report: 05/04/17 Time of Report: 16:02
[2017-05-04] MEDS ORDERED: ONDANSETRON DISINTEGRATING 4 MG TAB PO PRN (17:53)
[2017-05-04] MEDS ORDERED: NS 1,000 ML IV SCH (18:00)
[2017-05-04 19:02] LABS: LEUKOCYTE ESTERASE,URINE NEGATIVE (NEGATIVE); NITRITE,URINE NEGATIVE (NEGATIVE)
[2017-05-04 19:03] LABS: COLOR AMBER
[2017-05-04] MEDS: oxyCODONE IR 5 MG TAB PO PRN (19:23)
[2017-05-04 21:35] LABS: INR 2.14 (0.83-1.16); PROTIME(PATIENT) 24.1 SEC (12.0-15.0)
--- NOTE | 2017-05-04 22:07 | GHP ---
[f rep st] HISTORY AND PHYSICAL DATE OF ADMISSION: 05/04/2017 CHIEF COMPLAINT: Confusion, nausea, vomiting, and decreased oral intake. HISTORY OF PRESENT ILLNESS: The patient is a 57-year-old female with a history of alcoholic cirrhosis, who presents to the Emergency Department with confusion , and nausea, and vomiting with little oral intake over the past few days. Most of the history is obtained from chart review and the emergency department physician, as the patient is unable to provide detailed history. She is able to tell me that she is nauseous and has vomited several times. She denies hematemesis or coffee-ground emesis, but apparently a home advisor stated that she saw some blood in her vomit several days ago. There was apparently no ongoing vomiting yesterday, but the patient has been very nauseous, and has not been able to eat or drink. In addition, she has not been taking her lactulose, and her mentation has been worsening. She presents rather confused. She has been generally weak. She has had no fevers, chills, chest pain, or shortness of breath. She was discharged from the hospital 2 weeks ago after being treated for pleural effusion, likely secondary to hepatic hydrothorax. She was started on diuretics at that time. When she returns today, she is on room air, and there has been a significant decrease in the left effusion on repeat imaging. Her hemoglobin is noted to be stable. Her ammonia level is elevated at 42. She is admitted to the hospital for further management. PAST MEDICAL HISTORY: 1. End-stage liver disease secondary to alcoholic cirrhosis. 2. Alcohol dependence in remission, on Campral. Her last drink was January 15. 3. Hepatic encephalopathy. 4. Chronic anemia. 5. Thrombocytopenia. 6. Coagulopathy secondary to end-stage liver disease. 7. Depression. 8. Pleural effusion secondary to hepatic hydrothorax, improved with diuretics. 9. Hypothyroidism. MEDICATIONS: Please see [facility] for complete updated outpatient medication list. ALLERGIES: Codeine and penicillin. Under alcohol dependence in remission, on Campral. 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 She is currently not working. She has a history of heavy alcohol use, though quit nearly 4 months ago. She also has a history of tobacco abuse. It is unclear if she continues to smoke. FAMILY HISTORY: Reviewed and unremarkable. REVIEW OF SYSTEMS: A 10-point review of systems was performed and is negative except as per HPI. OBJECTIVE: VITAL SIGNS: Temperature is 37 degrees, blood pressure 103/47, heart rate 82, respiratory rate 18, she is 96% on room air. GENERAL: The patient is awake. She is alert and oriented to person. She is confused and seems to be hallucinatory, noting that the curtains are moving up and down. HEENT: Head is atraumatic, normocephalic. Pupils equal, round, and reactive to light. Sclerae are icteric. Oropharynx is clear. Mucous membranes are moist. NECK: Supple. There is no JVD. HEART: Regular rate and rhythm without murmur. LUNGS: Clear to auscultation bilaterally. ABDOMEN: Soft, nondistended, nontender with normoactive bowel tones. EXTREMITIES: Without cyanosis, clubbing, or edema. NEUROLOGIC: There is no asterixis or focal neurologic abnormalities. LABORATORY DATA: CBC reveals a normal white count of 7.28, note this is increased from her baseline of 2-3. Hemoglobin 8.2, which is stable from her baseline of 7-8. Platelets are 112, which is improved from her baseline of around 50,000. INR is pending. Lactic acid is elevated at 3.9. Complete metabolic panel shows a sodium of 129, potassium 4.0, chloride 94, bicarb 18, anion gap is 17, creatinine is normal at 0.9, BUN 19, glucose 113, total bilirubin 9.1, AST 81, ALT 55, alkaline phosphatase 154, ammonia level is 42. Troponin is negative. Total protein 8.6, albumin 3.3. Urinalysis is negative other than 2+ urobilinogen. Chest x-ray is personally reviewed and interpreted, and shows significant decrease in the left pleural effusion compared to previous with no evidence of infiltrate. ASSESSMENT AND PLAN: The patient is a 57-year-old female with history of alcoholic cirrhosis and hepatic encephalopathy, who presents to the Emergency Department with acute encephalopathic changes, nausea, vomiting, and volume depletion. 1. Hepatic encephalopathy. Her ammonia level is elevated at 42. During her hospitalization April 17, 2017, it was less than 9. Resume lactulose and up titrate as necessary to effect 3-4 bowel movements per day. Will also add rifaximin. 2. End-stage liver disease secondary to alcoholic cirrhosis. There is no evidence of ascites on exam. Her MELD score is 28. She presents a bit volume depleted and will receive normal saline overnight. She has not received her diuretics for several days, and these may need to be resumed in the morning. I will keep them on hold for now until her volume status is reassessed tomorrow. 3. Nausea and vomiting. She presents mildly volume depleted. As above, we will give normal saline tonight, and reassess her volume status in the morning. Supportive care with antiemetics will be provided. 4. Hyponatremia. I suspect this is hypovolemic hyponatremia given her nausea and vomiting. We will send a urine sodium and a urine osmolarity for further evaluation. Normal saline overnight, and we will recheck this in the morning. 5. Anemia. Likely secondary to bone marrow suppression in the setting of alcohol abuse. Her hemoglobin is at her baseline. There was one report from her aide of bloody emesis several days ago, though this has not persisted. Continue close monitoring. 6. Thrombocytopenia. Likely secondary to bone marrow suppression in the setting of alcohol abuse. Her platelets are actually improved at 112 from her previous of 51. Continue to monitor. 7. Anion gap metabolic acidosis. This is likely a starvation ketosis. I will continue to trend. 8. Pleural effusion. This is nearly resolved after initiation of diuretics at hospital discharge 2 weeks ago. As above, we will continue her diuretics once her volume status is improved, possibly tomorrow. 9. Coagulopathy. She received multiple doses of vitamin K during her last hospitalization with no significant improvement. Her INR at baseline is around 2.5. I sent a PT/INR, which is currently pending. We will consider vitamin K dose if this remains significantly elevated. 10. Elevated lactic acid. I do not think she has sepsis. This may be secondary to poor utilization, given her history of alcohol abuse and poor clearance with liver failure. I do not plan to repeat this unless she develops fevers or signs of infection. 11. Hypothyroidism. We will continue her outpatient levothyroxine. 12. Depression. Continue Prozac. 13. Gastroesophageal reflux disease. We will change her Protonix from oral to IV until she is taking p.o. better and has had no further vomiting. 14. Deep venous thrombosis prophylaxis. Lovenox was deferred given her history of coagulopathy and possible recent episode of hematemesis. We will place SCDs and aim for ambulation. CODE STATUS: The patient is full code. DISPOSITION: The patient admitted to inpatient status, as I expect she will require greater than 48 hours hospitalization for ongoing management of her hepatic encephalopathy and volume depletion. PT/OT consults are requested. /[id number]/MODL MTDD
[2017-05-04] MEDS: PANTOPRAZOLE SODIUM 40 MG in NS 100 ML IV SCH (22:34)
--- NOTE | 2017-05-04 22:39 | PDMN ---
Medical Necessity Medical necessity: C/M review: est. > 2 MN LOS for eval and TX of acute hepatic encephalopathy, nausea, vomiting, volume depletion, hyponatremia, anion gap acidosis, weakness, requiring ongoing IV fluids, IV Pantoprazole, acute inpt PT/OT, comorbid end stage liver disease, alcoholic cirrhosis, anemia, thrombocytopenia, depression, GERD, hypothyroidism, coagulopathy, recent admission for pleural effusion likely hepatic hydrothorax, hx alcohol dependence per H/P.
[2017-05-05] MEDS: LACTULOSE 20 GM/30 ML UDCUP PO SCH ×4 (00:06→21:06)
[2017-05-05] MEDS: oxyCODONE IR 5 MG TAB PO PRN ×3 (00:06→21:06)
[2017-05-05] MEDS: ACAMPROSATE CALCIUM 333 MG TAB PO SCH ×4 (00:07→21:07)
[2017-05-05] MEDS: MELATONIN 3 MG TAB PO SCH ×2 (00:07→21:07)
[2017-05-05] MEDS: RIFAXIMIN 550 MG TAB PO SCH ×3 (00:09→21:07)
[2017-05-05 05:17] LABS: % IMMATURE GRANULYOCYTES 0.3 % (0.0-1.1); ABSOLUTE IMMATURE GRANULOCYTES 0.02 10^3/uL (0.00-0.10); ADD DIFF? NO; ADD MORPH? YES; ADD SCAN? NO; ATYPICAL LYMPHOCYTE FLAG 0 (0-99); FRAGMENT RBC FLAG 20 (0-99); HEMATOCRIT 19.2 % (38.0-47.0); LEFT SHIFT FLG 0 (0-99); LIPEMIA HEMOLYSIS FLAG 80 (0-99); MEAN CELL HEMOGLOBIN 32.6 pg (27.9-34.1); MEAN CELL HEMOGLOBIN CONCENTR. 32.3 g/dL (32.4-36.7); MEAN CELL VOLUME 101.1 fL (81.5-99.8); MEAN PLATELET VOLUME 11.2 fL (8.7-11.7); PLATELET CLUMPS FLAG 0 (0-99); PLATELET COUNT 83 10^3/uL (150-400); RED CELL DISTRIBUTION WIDTH 19.3 % (11.5-15.2)
[2017-05-05 05:23] LABS: HEMOGLOBIN 6.2 g/dL (12.6-16.3)
[2017-05-05] MEDS: LEVOTHYROXINE 75 MCG TAB PO SCH (05:32)
[2017-05-05 05:42] LABS: ALANINE AMINOTRANSFERASE 46 IU/L (9-52); ALBUMIN 2.5 g/dL (3.5-5.0); ALKALINE PHOSPHATASE 107 IU/L (38-126); ANION GAP 8 mEq/L (8-16); ASPARTATE AMINOTRANSFERASE 60 IU/L (14-46); CALCIUM 8.6 mg/dL (8.5-10.4); CARBON DIOXIDE 21 mEq/l (22-31); CHLORIDE 104 mEq/L (97-110); CREATININE 0.7 mg/dL (0.6-1.0); GLOMERULAR FILTRATION RATE > 60; GLUCOSE 94 mg/dL (70-100); POTASSIUM 4.1 mEq/L (3.5-5.2); SODIUM 133 mEq/L (134-144); TOTAL PROTEIN 6.7 g/dL (6.3-8.2)
[2017-05-05 05:47] LABS: HYPOCHROMIA 1+; MACROCYTES 1+; PLATELET ESTIMATE DECREASED (ADEQ)
[2017-05-05 06:27] LABS: BILIRUBIN-CONJUGATED 3.2 mg/dL (0.0-0.5); BILIRUBIN-UNCONJUGATED 4.8 mg/dL (0.0-1.1)
[2017-05-05] MEDS: PANTOPRAZOLE SODIUM 40 MG in NS 100 ML IV SCH ×2 (08:22→21:06)
[2017-05-05] MEDS: FLUoxetine 20 MG CAP PO SCH (08:26)
[2017-05-05] MEDS ORDERED: SPIRONOLACTONE 50 MG TAB PO SCH (09:00)
[2017-05-05] MEDS ORDERED: FUROSEMIDE 40 MG TAB PO SCH (09:00)
[2017-05-05] MEDS ORDERED: ENOXAPARIN 40 MG/0.4 ML SYR SC SCH (09:00)
[2017-05-05] MEDS ORDERED: PHYTONADIONE 2.5 MG/2.5 ML ORAL UDL PO ONE (12:24)
--- NOTE | 2017-05-05 12:29 | HOSPPROG ---
Hospitalist Progress Note Assessment/Plan: #Normocytic anemia: no active bleeding here. Caregiver reported hematemesis couple days ago. H/H dropped overnight. May be dilutional with IVFs. -recent endoscopy 03/29 showed scant varices, gastropathy, diverticulosis. -not actively bleeding here. Treat medically now with blood transfusion, IV PPI. If does not improve or clinically declines, then low threshold to scope Discussed with Dr. Rahman #Hepatic encephalopathy: ammonia up at admission. Has not been taking lactulose , resume this and rifaximin #Etoh cirrhosis: sober since December. On Acamprosate #Left hydrothorax: improved with diuretics. Personally reviewed CXR, now with min effusion. Holding diuretics with anemia and dehydration #Coagulopathy: due to Etoh #Thrombocytopenia: due to Etoh. Not actively bleeding here. Treat with Vit K. If bleeds, give FFP #Hyerbilirubinemia/transaminitis: due to Etoh. BL 4.9, now 8.9 #Diet: ADAT #SCDs with anemia #Disp: warrant inpt admission, requiring blood, serial labs # Subjective: says sober since December. She denies melena or hematemesis here. No dizziness Objective: Vital Signs Temp Pulse Resp BP Pulse Ox 36.4 C 3 L 18 106/59 L 97 05/05/17 10:27 05/05/17 10:27 05/05/17 10:27 05/05/17 10:27 05/05/17 10:27 Laboratory Results 05/05/17 04:51 05/05/17 04:51 05/04/17 05/05/17 05/06/17 05:59 05:59 05:59 Intake Total 2677 Output Total 300 Balance 2677 -300 PT 24.1 SEC (12.0-15.0) H 05/04/17 21:20 INR 2.14 (0.83-1.16) H 05/04/17 21:20 - Physical Exam Constitutional: chronically ill appearing Eyes: icteric sclera Ears, Nose, Mouth, Throat: dry mucous membranes Cardiovascular: regular rate and rhythym, no murmur, rub, or gallop Respiratory: no respiratory distress, other (decreased BS left base) Gastrointestinal: normoactive bowel sounds, No no palpable masses, No distension (mild RLQ TTP) Genitourinary: no bladder fullness, no bladder tenderness Skin: warm Musculoskeletal: full muscle strength Neurologic: CN II-XII Intact, other (not alert to month or date) Psychiatric: flat affect ICD10 Worksheet Patient Problems: Problems Problem Status Onset Altered mental status, unspecified Acute Dehydration Acute Alcoholic hepatitis Acute Cirrhosis of liver Acute Dyspnea Acute Hypoxia Acute Liver failure Acute Pancytopenia Acute Pleural effusion, left Acute
--- NOTE | 2017-05-05 15:59 | ASMTCMCOM ---
CM Note CM Note Notes: Pt admitted from with hepatic encephalopathy. Pt is current with [facility] for RN, PT and OT. alerted [facility] and faxed referral. Pt recently admitted in mid-March. See Case Management note b Alyssa Alcala for further details. C/M to follow for any new DC needs. Date Signed: 05/05/2017 03:58 PM Electronically Signed By:Julee Loaiza LCSW
[2017-05-05] MEDS: ONDANSETRON 4 MG/2 ML VIAL IVP PRN (16:31)
[2017-05-05 18:51] LABS: HEMATOCRIT 24.1 % (38.0-47.0); HEMOGLOBIN 8.2 g/dL (12.6-16.3)
[2017-05-06 01:34] LABS: HEMATOCRIT 22.8 % (38.0-47.0); HEMOGLOBIN 7.7 g/dL (12.6-16.3)
[2017-05-06] MEDS: LEVOTHYROXINE 75 MCG TAB PO SCH (05:41)
[2017-05-06 07:23] LABS: HEMATOCRIT 22.5 % (38.0-47.0); HEMOGLOBIN 7.6 g/dL (12.6-16.3)
[2017-05-06 07:32] LABS: INR 1.96 (0.83-1.16); PROTIME(PATIENT) 22.4 SEC (12.0-15.0)
[2017-05-06 07:37] LABS: ALANINE AMINOTRANSFERASE 46 IU/L (9-52); ALBUMIN 2.3 g/dL (3.5-5.0); ALKALINE PHOSPHATASE 102 IU/L (38-126); ANION GAP 9 mEq/L (8-16); ASPARTATE AMINOTRANSFERASE 64 IU/L (14-46); BILIRUBIN,TOTAL 9.4 mg/dL (0.1-1.4); CALCIUM 8.6 mg/dL (8.5-10.4); CARBON DIOXIDE 21 mEq/l (22-31); CHLORIDE 103 mEq/L (97-110); CREATININE 0.7 mg/dL (0.6-1.0); GLOMERULAR FILTRATION RATE > 60; GLUCOSE 79 mg/dL (70-100); POTASSIUM 3.6 mEq/L (3.5-5.2); SODIUM 133 mEq/L (134-144); SPECIMEN ICTERUS 6; TOTAL PROTEIN 6.7 g/dL (6.3-8.2)
[2017-05-06 07:44] LABS: BILIRUBIN-CONJUGATED 3.6 mg/dL (0.0-0.5); BILIRUBIN-UNCONJUGATED 5.8 mg/dL (0.0-1.1)
[2017-05-06] MEDS: RIFAXIMIN 550 MG TAB PO SCH ×2 (08:35→21:55)
[2017-05-06] MEDS: FLUoxetine 20 MG CAP PO SCH (08:35)
[2017-05-06] MEDS: LACTULOSE 20 GM/30 ML UDCUP PO SCH ×3 (08:35→21:55)
[2017-05-06] MEDS: ACAMPROSATE CALCIUM 333 MG TAB PO SCH ×3 (08:35→21:54)
[2017-05-06] MEDS: PANTOPRAZOLE SODIUM 40 MG in NS 100 ML IV SCH ×2 (08:38→21:55)
--- NOTE | 2017-05-06 09:59 | PDANEPAE ---
ANE Past Medical History - Cardiovascular History Hx Hypertension: Yes Hx Arrhythmias: No Hx Chest Pain: No Hx Coronary Artery / Peripheral Vascular Disease: No Hx CHF / Valvular Disease: No Hx Palpitations: No - Pulmonary History Hx COPD: No Hx Asthma/Reactive Airway Disease: No Hx Recent Upper Respiratory Infection: No Hx Oxygen in Use at Home: No Hx Sleep Apnea: No Sleep Apnea Screening Result - Last Documented: Negative Pulmonary History Comment: smoker-7 cigs/day. - Neurologic History Hx Cerebrovascular Accident: No Hx Seizures: No Hx Dementia: No - Endocrine History Hx Diabetes: No Hypothyroid: Yes Hyperthyroid: No Obesity: no Endocrine History Comment: hypothyroid - Renal History Hx Renal Disorders: No - Liver History Hx Hepatic Disorders: Yes Hepatic History Comment: cirrhosis - Neurological & Psychiatric Hx Hx Neurological and Psychiatric Disorders: No - Cancer History Hx Cancer: No - Congenital Disorder History Hx Congenital Disorders: No - GI History GERD: moderate Hx Gastrointestinal Disorders: Yes Gastrointestinal History Comment: cirrhosis - Other Health History Other Health History: voice is "rough" overused,gravely 12-14-16. - Chronic Pain History Chronic Pain: No - Surgical History Prior Surgeries: age 22's fibrocystic mass-breast ANE Review of Systems Review of Systems: - Exercise capacity METS (RN): 3 METS - Systems Respiratory: Reports: shortness of breath Gastrointestinal: Reports: vomitting Neurological: Reports: other (altered mental status/confusion) Hematologic/Lymphatic: Reports: anemia ANE Patient History - Allergies Allergies/Adverse Reactions: codeine Allergy (Verified 04/17/17 09:23) Vomiting Penicillins Allergy (Verified 04/17/17 09:23) Other-Enter Comments - Home Medications Home Medications: Levothyroxine [Synthroid 75 mcg (*)] 75 mcg PO DAILY@03/24/17 [Last Taken 11/13] - NPO status NPO Since - Liquids (Date): 05/06/17 NPO Since - Liquids (Time): 00:00 NPO Since - Solids (Date): 05/06/17 NPO Since - Solids (Time): 00:00 - Anes Hx Anes Hx: no prior problems - Smoking Hx Smoking Status: Current every day smoker ANE Labs/Vital Signs - Labs Result Diagrams: 05/06/17 06:56 05/06/17 06:56 - Vital Signs Blood Pressure: 104/62 Heart Rate: 78 Respiratory Rate: 16 O2 Sat (%): 95 Height: 182.9 cm Weight: 73.3 kg ANE Physical Exam - Airway Neck exam: FROM Mallampati Score: Class 1 Mouth exam: normal dental/mouth exam - Pulmonary Pulmonary: no respiratory distress - Cardiovascular Cardiovascular: regular rate and rhythym - ASA Status ASA Status: III ANE Anesthesia Plan Anesthesia Plan: general endotracheal anesthesia Total IV Anesthesia: No
[2017-05-06] MEDS ORDERED: fentaNYL 100 MCG/2 ML INJ ONE (10:13)
[2017-05-06] MEDS ORDERED: PROPOFOL 200 MG/20 ML VIAL ONE (10:14)
[2017-05-06] MEDS ORDERED: SULFAMETHOX/TMP 800/160 MG 1 TAB PO ONE (10:15)
[2017-05-06] MEDS ORDERED: LIDOCAINE 2% 5 ML SDV ONE (10:16)
[2017-05-06] MEDS ORDERED: ROCURONIUM 50 MG/5 ML VIAL ONE (10:19)
[2017-05-06] MEDS ORDERED: SUCCINYLCHOLINE CHLORIDE*ANESTHESIA ONLY*200 MG/10 ML SYR IVP ONE (10:20)
--- NOTE | 2017-05-06 10:38 | GCON ---
[f rep st] CONSULTATION DATE OF CONSULTATION: 05/06/2017 REQUESTING PHYSICIAN: Nely Rodríguez MD. REASON FOR CONSULTATION: Melena. Dear Dr. Rodríguez, thank you very kindly for asking me to evaluate this patient for melena. She is a p arturo 57-year-old female with cirrhosis related to alcohol, who has been sober since December. She dev eloped confusion and nausea at home with some coffee-grounds emesis. She was found to have melena wh ile she was in the hospital. Her hematocrit is 19. She denies noting any bleeding at home but does say she felt somewhat weak and dizzy. She is abstinent from alcohol and has not been using NSAIDs. She has known hepatic encephalopathy and had been taking her lactulose routinely but felt somewhat co nstipated over the last 2 days prior to admission without her normal bowel movements. Her ammonia le josé was 42 on admission. Her cirrhosis has been complicated by a hepatic hydrothorax on the left [address], chronic anemia, hepatic encephalopathy, previous ascites but she has never had endoscopic treatme nt of a GI bleed. She is also coagulopathic secondary to her cirrhosis with thrombocytopenia, and an elevated INR at 2.0. I am asked to assist with further evaluation and management. PAST MEDICAL HISTORY: Significant for 1. Cirrhosis. 2. 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 3. Hepatic encephalopathy. 4. Chronic anemia. 5. Thrombocytopenia. 6. Coagulopathy. 7. Hepatic hydrothorax. 8. Hypothyroidism. CURRENT MEDICATIONS: Include Acamprosate 660 mg p.o. three times daily, Prozac 40 mg daily, Lasix 40 mg daily, lactulose 20 g three times daily, Synthroid 75 mcg daily, melatonin 3 mg at bed, octreotid e has been started for her recent GI bleed, pantoprazole 40 mg continuous drip, Xifaxan 550 mg p.o. t wice daily, spironolactone 100 mg daily, vitamin K has also been administered once. ALLERGIES: Codeine and penicillin. Alcoholism is in remission on Campral. 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 She is not currently working. She has a very heavy history of alcoholism. There is also remote history of tobacco use but not currently. FAMILY HISTORY: Negative for cirrhosis but significant for alcohol. REVIEW OF SYSTEMS: CONSTITUTIONAL: For some weakness and generalized malaise. No chills, fever or night sweats. HEENT: She has been a bit dizzy. She says her mouth is dry. No sore throat or diffi culty swallowing. PULMONARY: No cough or shortness of breath. CARDIOVASCULAR: No chest pain, palp itations or syncope. GI: Has been for reported melena in the hospital. The patient says her home [facility] care provider has noted coffee-grounds in some emesis she had last week. She has not vomited i n the hospital. No heartburn or dysphagia. She has been constipated with some abdominal distention. No significant abdominal pain. RHEUMATOLOGIC: No joint pain or swelling. GENITOURINARY: No brandan turia, dysuria, or flank pain. GYNECOLOGIC: No vaginal bleeding or discharge. HEMATOLOGIC: No bru ising or epistaxis. NEUROLOGIC: She has been somewhat confused she says since her lactulose quit wo rking last week. No paresthesias, focal motor weakness or falls. PHYSICAL EXAM: VITAL SIGNS: Blood pressure is 104/62 with a mean arterial pressure of 76, heart rat e is 78, respirations are 16, oxygenation is 95% on room air. Temperature is 37.6. GENERAL: Chroni christopher ill-appearing female, in no acute distress. HEENT: No jugular venous distention. Mucous memb ranes are dry. Sclerae are anicteric. NECK: Supple. PULMONARY: There are diminished breath sound s with an increased fremitus on the left chest. Tubular breath sounds as well are noted. No rales o r wheeze. Air exchange is good. CARDIOVASCULAR: Regular rate and rhythm. Systolic murmur at the l eft sternal border. 2/6 no gallop. ABDOMEN: Soft, obese. No ascites. No tenderness, rebound or g uarding. No bruit. Normal bowel sounds. EXTREMITIES: No edema. No joint deformity, swelling or w armth. SKIN: Jaundiced. NEUROLOGIC: Alert to person, place, and time. She is slow with her think ing and does take time to answer questions but it seems like her remote and recent memory are fairly good. She does exhibit mild asterixis. No focal motor weakness. LABORATORIES: White blood count 7.2, hematocrit 25.0, platelets are 112. Her morning hematocrit tod ay is 22.5. INR is 1.96 after vitamin K, with a PT of 22.4. Sodium 133, potassium 3.6, chloride 103 , bicarbonate 21, BUN 11, creatinine 0.7, glucose is 79, total bilirubin is 9.4, with a conjugated of 3.6, AST is 64, ALT 46, alkaline phosphatase 102, ammonia is 42, troponin is less than 0.012. Album in is low at 2.3 with a total protein of 6.7. IMPRESSION: 1. Chronic anemia. 2. Acute blood loss with melena. 3. Cirrhosis number secondary to alcohol. 4. Coagulopathy. 5. Thrombocytopenia. 6. Hepatic encephalopathy. Likely worsened by a combination of a failure of lactulose to be causing abnormal bowel pattern and the recent gastrointestinal bleed. RECOMMENDATIONS: 1. N.p.o. 2. Continuous Protonix infusion. 3. Octreotide bolus followed by 50 mcg/hour. 4. Serial hematocrit. 5. Urgent upper endoscopy to evaluate her melena and bleeding with likely the intent of banding. 6. Continue Xifaxan three times daily and lactulose for her encephalopathy. 7. Further recommendations pending the outcome of her endoscopic evaluation. 8. She does have a hepatic hydrothorax and not a ton of ascites but I would prophylax her for SBP in the setting of a gastrointestinal bleed with the use of fluoroquinolone or Bactrim daily for 3 days. 9. Further recommendations to follow. /[id number]/MODL
--- NOTE | 2017-05-06 10:47 | GIREPORT ---
[facility] Surgical Services - Endoscopy Department Patient Name: Felisha Cannon Procedure Date: 05/06/2017 10:04 AM Patient Type: Inpatient Attending MD/ ER Physician: Mainor Rahman MD Procedure: Upper GI endoscopy Indications: Melena Providers: Mainor Rahman MD Medicines: General Anesthesia Complications: No immediate complications. Description of Procedure: After obtaining informed consent, the endoscope was passed under direct vision. Throughout the procedure, the patient's blood pressure, pulse, and oxygen saturations were monitored continuous ly. The Endoscope was introduced through the mouth, and advanced to the second part of duodenum. The upper GI endoscopy was accomplished without difficulty. The patient tolerated the procedure well . Findings: Three columns of non-bleeding grade II varices were found in the lower third of the esophagus, 4 0 cm from the incisors. They were 8 mm in largest diameter. Stigmata of recent bleeding were evident and red ivette signs were present. Three bands were successfully placed with complete eradication, resulting in deflation of varices. There was no bleeding during, and at the end, of the procedur e. Red blood was found in the gastric fundus and in the gastric body. Moderate portal hypertensive gastropathy was found in the entire examined stomach. Grade II varices were found in the first portion of the duodenum and in the second portion of th e duodenum. Estimated Blood Loss: Estimated blood loss: none. Post Op Diagnosis: - Recently bleeding grade II esophageal varices. Completely eradicated. Banded. - Red blood in the gastric fundus and in the gastric body. - Portal hypertensive gastropathy. - Grade II duodenal varices. - No specimens collected. Recommendation: - Administer an IV bolus of 50 micrograms of octreotide followed by an infusion of 50 micrograms per hour for 3 days. - Use Protonix (pantoprazole) 40 mg IV daily. - Clear liquid diet today. - Bactrim/Septra (trimethoprim/sulfamethoxazole) DS 1 tablet PO BID for 3 days. - Lactulose 20gm TID - Xifaxan 550mg po TID - Check hematocrit q 8 hours until stable. - Return patient to hospital [facility] for ongoing care. - Thank you for allowing me to be involved in the care of your patient. Attending Participation: I personally performed the entire procedure without the assistance of a fellow, resident or surg ical assistant grocery. Mainor Rahman MD Mainor Rahman MD 05/06/2017 10:47:00 AM Number of Addenda: 0 Note Initiated On: 05/06/2017 10:04 AM [email or web address]
[2017-05-06] MEDS ORDERED: NS 500 ML IV PRN (11:00)
[2017-05-06] MEDS ORDERED: NALOXONE HCL 0.4 MG/ML INJ IVP PRN (11:00)
[2017-05-06] MEDS ORDERED: fentaNYL 100 MCG/2 ML INJ IVP PRN (11:00)
[2017-05-06] MEDS ORDERED: ONDANSETRON 4 MG/2 ML VIAL IVP PRN (11:00)
[2017-05-06] MEDS ORDERED: METOCLOPRAMIDE 10 MG/2 ML VIAL IVP PRN (11:00)
--- NOTE | 2017-05-06 11:01 | POSTANESTH ---
Post Anesthetic Evaluation Cardiovascular Status: Normal, Stable Respiratory Status: Normal, Stable Level of Consciousness/Mental Status: Can Participate in Eval Pain Control: Adequate, Prn Tx Ordered Nausea/Vomiting Control: Adequate, Prn Tx Ordered Complications Possibly Related to Anesthesia: None Noted
[2017-05-06] MEDS ORDERED: ONDANSETRON 4 MG/2 ML VIAL ONE ×2 (11:07→11:25)
[2017-05-06] MEDS: ONDANSETRON 4 MG/2 ML VIAL IVP PRN (11:10)
--- NOTE | 2017-05-06 12:53 | HOSPPROG ---
Hospitalist Progress Note Assessment/Plan: #Acute blood loss anemia: due to #Grade 2 esoph varies: banded today. Cont IV Octreotide, PPI. H/H stable after 2 units. Check q8hr H/H. PPx Bactrim for 3 days #Hepatic encephalopathy: resolved. Cont lactulose/Rifaximin #Etoh cirrhosis: sober since December. On Acamprosate #Left hydrothorax: improved with diuretics. Personally reviewed CXR, now with min effusion. Holding diuretics with anemia and dehydration #Coagulopathy: due to Etoh #Thrombocytopenia: due to Etoh. If rebleeds, give FFP #Hyerbilirubinemia/transaminitis: due to Etoh cirrhosis #Diet: clears #SCDs with anemia #Disp: warrant inpt admission, requiring blood, serial labs # Subjective: large melanic stool yesterday. None today Objective: Vital Signs Temp Pulse Resp BP Pulse Ox 36.4 C 79 17 109/62 99 05/06/17 12:07 05/06/17 12:07 05/06/17 12:07 05/06/17 12:07 05/06/17 12:07 Laboratory Results 05/06/17 06:56 05/06/17 06:56 05/05/17 05/06/17 05/07/17 05:59 05:59 05:59 Intake Total 2677 1809 Output Total 1625 Balance 2677 184 PT 22.4 SEC (12.0-15.0) H 05/06/17 06:56 INR 1.96 (0.83-1.16) H 05/06/17 06:56 - Physical Exam Constitutional: no apparent distress Eyes: icteric sclera Ears, Nose, Mouth, Throat: moist mucous membranes, hearing normal Cardiovascular: regular rate and rhythym, no murmur, rub, or gallop Respiratory: no respiratory distress, no rales or rhonchi Gastrointestinal: normoactive bowel sounds, soft, non-tender abdomen, no palpable masses Genitourinary: no bladder fullness Skin: warm Musculoskeletal: full muscle strength Neurologic: AAOx3, CN II-XII Intact, No asterixes Psychiatric: interacting appropriately ICD10 Worksheet Patient Problems: Problems Problem Status Onset Altered mental status, unspecified Acute Dehydration Acute Alcoholic hepatitis Acute Cirrhosis of liver Acute Dyspnea Acute Hypoxia Acute Liver failure Acute Pancytopenia Acute Pleural effusion, left Acute
[2017-05-06 13:04] LABS: HEMATOCRIT 24.5 % (38.0-47.0); HEMOGLOBIN 8.2 g/dL (12.6-16.3); MEAN CELL HEMOGLOBIN 32.5 pg (27.9-34.1); MEAN CELL HEMOGLOBIN CONCENTR. 33.5 g/dL (32.4-36.7); MEAN CELL VOLUME 97.2 fL (81.5-99.8); RED BLOOD CELL COUNT 2.52 10^6/uL (4.18-5.33)
[2017-05-06 13:05] LABS: RED CELL DISTRIBUTION WIDTH 20.6 % (11.5-15.2)
[2017-05-06] MEDS: SULFAMETHOX/TMP 800/160 MG 1 TAB PO SCH ×2 (13:18→21:55)
[2017-05-06 19:57] LABS: HEMATOCRIT 24.9 % (38.0-47.0); HEMOGLOBIN 8.2 g/dL (12.6-16.3)
[2017-05-06] MEDS: OCTREOTIDE ACETATE 500 MCG in D5W 50 ML IV SCH (22:51)
[2017-05-06] MEDS: MELATONIN 3 MG TAB PO PRN (23:21)
[2017-05-07 04:58] LABS: HEMATOCRIT 23.3 % (38.0-47.0); HEMOGLOBIN 7.8 g/dL (12.6-16.3)
[2017-05-07 05:13] LABS: INR 2.04 (0.83-1.16); PROTIME(PATIENT) 23.2 SEC (12.0-15.0)
[2017-05-07] MEDS: LEVOTHYROXINE 75 MCG TAB PO SCH (06:01)
[2017-05-07 06:02] LABS: POTASSIUM 3.8 mEq/L (3.5-5.2)
[2017-05-07 06:03] LABS: ALANINE AMINOTRANSFERASE 54 IU/L (9-52); ALBUMIN 2.4 g/dL (3.5-5.0); ALKALINE PHOSPHATASE 106 IU/L (38-126); ANION GAP 9 mEq/L (8-16); ASPARTATE AMINOTRANSFERASE 84 IU/L (14-46); CALCIUM 8.8 mg/dL (8.5-10.4); CARBON DIOXIDE 19 mEq/l (22-31); CHLORIDE 105 mEq/L (97-110); CREATININE 0.7 mg/dL (0.6-1.0); GLOMERULAR FILTRATION RATE > 60; GLUCOSE 77 mg/dL (70-100); SODIUM 133 mEq/L (134-144); TOTAL PROTEIN 6.8 g/dL (6.3-8.2)
[2017-05-07 06:16] LABS: BILIRUBIN-CONJUGATED 3.1 mg/dL (0.0-0.5); BILIRUBIN-UNCONJUGATED 3.9 mg/dL (0.0-1.1)
[2017-05-07] MEDS: RIFAXIMIN 550 MG TAB PO SCH ×2 (09:35→21:28)
[2017-05-07] MEDS: FLUoxetine 20 MG CAP PO SCH (09:36)
[2017-05-07] MEDS: SULFAMETHOX/TMP 800/160 MG 1 TAB PO SCH ×2 (09:36→21:32)
[2017-05-07] MEDS: ACAMPROSATE CALCIUM 333 MG TAB PO SCH ×3 (09:36→21:32)
[2017-05-07] MEDS: LACTULOSE 20 GM/30 ML UDCUP PO SCH ×3 (09:37→21:32)
[2017-05-07] MEDS: PANTOPRAZOLE SODIUM 40 MG in NS 100 ML IV SCH (09:43)
[2017-05-07] MEDS ORDERED: PANTOPRAZOLE SODIUM 40 MG in NS 100 ML IV SCH (09:45)
--- NOTE | 2017-05-07 09:50 | HOSPPROG ---
Hospitalist Progress Note Assessment/Plan: #Acute blood loss anemia: due to #Grade 2 esoph varies: banded 05/06. Cont IV Octreotide, PPI. H/H dropped this morning. Will repeat. Has received total of 2 units. Bactrim for 3 days #Hepatic encephalopathy: resolved. Cont lactulose/Rifaximin #Etoh cirrhosis: sober since December. On Acamprosate #Left hydrothorax: improved with diuretics. Personally reviewed CXR, now with min effusion. Can restart diuretics tomorrow #Coagulopathy: due to Etoh #Thrombocytopenia: due to Etoh. If rebleeds, give FFP #Hyerbilirubinemia/transaminitis: trending down. Due to Etoh cirrhosis #Diet: clears #SCDs with anemia #Disp: warrant inpt admission, requiring blood, serial labs. If clinically stable, may be able to DC tomorrow # Subjective: small tarry stools. No dizziness Objective: Vital Signs Temp Pulse Resp BP Pulse Ox 36.8 C 77 16 104/58 L 91 L 05/07/17 09:06 05/07/17 09:06 05/07/17 09:06 05/07/17 09:06 05/07/17 09:06 Laboratory Results 05/07/17 04:30 05/07/17 04:30 05/06/17 05/07/17 05/08/17 05:59 05:59 05:59 Intake Total 1809 1500 419 Output Total 1625 Balance 184 1500 419 PT 23.2 SEC (12.0-15.0) H 05/07/17 04:30 INR 2.04 (0.83-1.16) H 05/07/17 04:30 - Physical Exam Constitutional: no apparent distress Eyes: PERRL, icteric sclera Ears, Nose, Mouth, Throat: moist mucous membranes Cardiovascular: regular rate and rhythym, no murmur, rub, or gallop, No edema Respiratory: no respiratory distress, other (decreased BS left base) Gastrointestinal: normoactive bowel sounds Genitourinary: no bladder fullness Skin: warm Musculoskeletal: full muscle strength Neurologic: AAOx3, CN II-XII Intact, No asterixes Psychiatric: interacting appropriately ICD10 Worksheet Patient Problems: Problems Problem Status Onset Altered mental status, unspecified Acute Dehydration Acute Alcoholic hepatitis Acute Cirrhosis of liver Acute Dyspnea Acute Hypoxia Acute Liver failure Acute Pancytopenia Acute Pleural effusion, left Acute
[2017-05-07] MEDS: OCTREOTIDE ACETATE 500 MCG in D5W 50 ML IV SCH ×2 (11:00→22:10)
--- NOTE | 2017-05-07 13:24 | SOAPPROG ---
SOAP Progress Note Assessment/Plan: Assessment: 1. ETOH cirrhosis 2. Variceal bleed s/p banding x 3 columns with 3 bands successfully deployed 3. Hepatic encephalopathy 4. Anemia- mutlifactorial and due to blood loss and cirrhosis 5. Coagulopathy Plan: 1. Change monitoring of Hct to q12 hrs 2. Continue octreotide today and Ok to stop in AM if no significant melena 3. Change PPI therapy to 40mg once daily 4. Bactrim DS for 3 days for SBP prophylaxis 5. Lactulose and xifaxan TID 6. ADAT but 2gm sodium. No need for fluid restriction once sodium above 135 7. Will follow 05/07/17 13:21 05/07/17 13:24 Subjective: CC: stools are still dark, but small volume Some chest pain after banding yesterday Overall feels better. Tolerating po. No hematemesis or abdominal pain. No fever. Objective: Vital Signs Temp Pulse Resp BP Pulse Ox 36.8 C 77 16 104/58 L 91 L 05/07/17 09:06 05/07/17 09:06 05/07/17 09:06 05/07/17 09:06 05/07/17 09:06 Laboratory Results 05/07/17 04:30 05/07/17 04:30 05/06/17 05/07/17 05/08/17 05:59 05:59 05:59 Intake Total 1809 1500 419 Output Total 1625 Balance 184 1500 419 PT 23.2 SEC (12.0-15.0) H 05/07/17 04:30 INR 2.04 (0.83-1.16) H 05/07/17 04:30 Physical Exam - Physical Exam General Appearance: no apparent distress EENT: pharynx normal, scleral icterus (R), scleral icterus (L) Neck: supple Respiratory: lungs clear Cardiac/Chest: regular rate, rhythm, systolic murmur Abdomen: non-tender, soft, No distended, No guarding, No rebound, No ascites Skin: warm/dry, jaundice, other (multiple telangectasias) Neuro/Psych: alert, normal mood/affect, oriented x 3 ICD10 Worksheet Patient Problems: Problems Problem Status Onset Altered mental status, unspecified Acute Dehydration Acute Alcoholic hepatitis Acute Cirrhosis of liver Acute Dyspnea Acute Hypoxia Acute Liver failure Acute Pancytopenia Acute Pleural effusion, left Acute
[2017-05-07 14:20] LABS: HEMATOCRIT 22.7 % (38.0-47.0); HEMOGLOBIN 7.5 g/dL (12.6-16.3); MEAN CELL HEMOGLOBIN 33.3 pg (27.9-34.1); MEAN CELL VOLUME 100.9 fL (81.5-99.8); RED BLOOD CELL COUNT 2.25 10^6/uL (4.18-5.33); RED CELL DISTRIBUTION WIDTH 19.9 % (11.5-15.2)
--- NOTE | 2017-05-07 15:32 | ASMTCMCOM ---
CM Note CM Note Notes: Met w/pt to discuss dc poc. She plans to resume HHC services w/[facility]- updated Mildred from [facility]. Pt had questions regarding [facility] coverage. She will likely want to use Medicaid benefits for transport home from [place]. Advised her to contact [facility] regarding her questions about insurance covering ambulance ride from home to ER if she should need to do that in future. FERNIE w/f. Date Signed: 05/07/2017 03:32 PM Electronically Signed By:Jaymie Pandya RN
[2017-05-07] MEDS: oxyCODONE IR 5 MG TAB PO PRN (15:48)
[2017-05-07] MEDS: MELATONIN 3 MG TAB PO PRN (21:32)
[2017-05-08 05:31] LABS: HEMATOCRIT 22.3 % (38.0-47.0); HEMOGLOBIN 7.4 g/dL (12.6-16.3); MEAN CELL HEMOGLOBIN 33.3 pg (27.9-34.1); MEAN CELL HEMOGLOBIN CONCENTR. 33.2 g/dL (32.4-36.7); MEAN CELL VOLUME 100.5 fL (81.5-99.8); RED BLOOD CELL COUNT 2.22 10^6/uL (4.18-5.33)
[2017-05-08 05:36] LABS: RED CELL DISTRIBUTION WIDTH 20.3 % (11.5-15.2)
[2017-05-08 05:44] LABS: INR 2.08 (0.83-1.16); PROTIME(PATIENT) 23.5 SEC (12.0-15.0)
[2017-05-08] MEDS: LEVOTHYROXINE 75 MCG TAB PO SCH (05:48)
[2017-05-08 07:11] LABS: ALANINE AMINOTRANSFERASE 70 IU/L (9-52); ALBUMIN 2.2 g/dL (3.5-5.0); ALKALINE PHOSPHATASE 102 IU/L (38-126); ANION GAP 7 mEq/L (8-16); ASPARTATE AMINOTRANSFERASE 115 IU/L (14-46); BILIRUBIN,TOTAL 5.6 mg/dL (0.1-1.4); CALCIUM 8.2 mg/dL (8.5-10.4); CARBON DIOXIDE 19 mEq/l (22-31); CHLORIDE 105 mEq/L (97-110); CREATININE 0.7 mg/dL (0.6-1.0); GLOMERULAR FILTRATION RATE > 60; GLUCOSE 96 mg/dL (70-100); POTASSIUM 4.3 mEq/L (3.5-5.2); SODIUM 131 mEq/L (134-144); TOTAL PROTEIN 6.5 g/dL (6.3-8.2)
[2017-05-08 07:18] LABS: BILIRUBIN-CONJUGATED 2.6 mg/dL (0.0-0.5)
[2017-05-08] MEDS: OCTREOTIDE ACETATE 500 MCG in D5W 50 ML IV SCH (08:29)
[2017-05-08] MEDS: FLUoxetine 20 MG CAP PO SCH (08:49)
[2017-05-08] MEDS: ACAMPROSATE CALCIUM 333 MG TAB PO SCH ×3 (08:49→22:11)
[2017-05-08] MEDS: SULFAMETHOX/TMP 800/160 MG 1 TAB PO SCH ×2 (08:49→22:07)
[2017-05-08] MEDS: RIFAXIMIN 550 MG TAB PO SCH ×2 (08:49→22:08)
[2017-05-08] MEDS: PANTOPRAZOLE SODIUM 40 MG TAB PO SCH (08:49)
[2017-05-08] MEDS: LACTULOSE 20 GM/30 ML UDCUP PO SCH ×4 (08:51→22:07)
--- NOTE | 2017-05-08 09:50 | PDDCSUM ---
Discharge Summary Discharge Summary: DISCHARGE DIAGNOSES: -acute upper gi bleed -bleeding esophageal varices -acute haptic encephalopathy -alcoholic cirrhosis CONSULTANTS: Dr. Rahman PROCEDURES: Esophagogastroduodenoscopy with banding of 3 esophageal varices HOSPITAL COURSE SUMMARY: This patient with known alcoholic cirrhosis presented with encephalopathy and melenic stools and was found to have bleeding esophageal varices. She was admitted to the hospital. She was treated with IV hydration, and remained hemodynamically stable but did require transfusion of 2 units packed red blood cells. She did receive octreotide therapy and ongoing proton pump therapy. Varices banding was successful and without complication. There is no further bleeding after this. The patient's octreotide was stopped and she is now eating without difficulty. She is up and ambulating in the hallway. Her encephalopathy has cleared nicely back to her baseline mentation. At this point she is felt stable for discharge to home. The patient has been sober now since January 15 and intends to remain sober. She is participating in a support group. 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 She does understand that she will probably at some point come to need liver transplant and we reviewed that in detail at this time. PENDING TEST RESULTS: None MEDICATION CHANGES: Addition of Xifaxan to her lactulose, and decreased Protonix to once daily FOLLOW-UP PLAN: With her thimble press operator as previously planned Greater than 35 minutes bedside and care coordination time today
--- NOTE | 2017-05-08 09:55 | SOAPPROG ---
DONG Progress Note Assessment/Plan: Assessment: 1. ETOH cirrhosis 2. Variceal bleed s/p banding x 3 columns with 3 bands successfully deployed 3. Hepatic encephalopathy 4. Anemia- mutlifactorial and due to blood loss and cirrhosis 5. Coagulopathy Plan: 1. Transfuse 1 unit pRBCs today 2. ADAT 3. Stop octreotide 4. Change PPI to oral 5. Bactrim can DS after today 6. 2L fluid restriction for hyponatremia 7. Resume oral diuretics at 50mg/20mg aldactone/lasix 8. Maybe home tomorrow if no major set backs. 05/08/17 09:55 Subjective: CC: Melena No further melena Confusion better Still weak Objective: Vital Signs Temp Pulse Resp BP Pulse Ox 36.6 C 76 20 104/50 L 94 05/08/17 08:26 05/08/17 08:26 05/08/17 08:26 05/08/17 08:26 05/08/17 08:26 Laboratory Results 05/08/17 04:30 05/08/17 04:40 05/07/17 05/08/17 05/09/17 05:59 05:59 05:59 Intake Total 1500 2259 Balance 1500 2259 PT 23.5 SEC (12.0-15.0) H 05/08/17 04:40 INR 2.08 (0.83-1.16) H 05/08/17 04:40 Physical Exam - Physical Exam General Appearance: no apparent distress EENT: pharynx normal, scleral icterus (R), scleral icterus (L) Neck: supple, No carotid bruit Respiratory: lungs clear Cardiac/Chest: regular rate, rhythm, systolic murmur Abdomen: normal bowel sounds, non-tender, soft, No distended, No guarding, No rebound, No ascites Skin: jaundice Lymphatic: no adenopathy Neuro/Psych: alert, normal mood/affect, oriented x 3 ICD10 Worksheet Patient Problems: Problems Problem Status Onset Altered mental status, unspecified Acute Dehydration Acute Alcoholic hepatitis Acute Cirrhosis of liver Acute Dyspnea Acute Hypoxia Acute Liver failure Acute Pancytopenia Acute Pleural effusion, left Acute
--- NOTE | 2017-05-08 10:18 | HOSPPROG ---
Hospitalist Progress Note Assessment/Plan: I discussed the patient's case in detail with Dr. Mainor Rahman today. He was uncomfortable having the patient at home as she is quite frail and he feels that further transfusion is indicated to get her in better shape hemodynamically. Will continue to watch the patient here through the night and her discharge will be canceled at this time with anticipated discharge tomorrow morning. Objective: Vital Signs Temp Pulse Resp BP Pulse Ox 36.6 C 76 20 104/50 L 94 05/08/17 08:26 05/08/17 08:26 05/08/17 08:26 05/08/17 08:26 05/08/17 08:26 Laboratory Results 05/08/17 04:30 05/08/17 04:40 05/07/17 05/08/17 05/09/17 06:59 06:59 06:59 Intake Total 1719 2040 Balance 1719 2040 PT 23.5 SEC (12.0-15.0) H 05/08/17 04:40 INR 2.08 (0.83-1.16) H 05/08/17 04:40 ICD10 Worksheet Patient Problems: Problems Problem Status Onset Altered mental status, unspecified Acute Dehydration Acute Alcoholic hepatitis Acute Cirrhosis of liver Acute Dyspnea Acute Hypoxia Acute Liver failure Acute Pancytopenia Acute Pleural effusion, left Acute
--- NOTE | 2017-05-08 10:28 | ASMTCMCOM ---
CM Note CM Note Notes: Chart reviewed. Met with pt to verify [facility] agency and transportation needs. Potentially to [place] later today or tomorrow. Updates sent to [facility]. Awaiting response, Home address and phone verified. CM to follow. Date Signed: 05/08/2017 10:27 AM Electronically Signed By:Leona Castillo RN
[2017-05-08] MEDS: oxyCODONE IR 5 MG TAB PO PRN (10:47)
[2017-05-08] MEDS: SPIRONOLACTONE 50 MG TAB PO SCH (10:49)
[2017-05-08] MEDS: FUROSEMIDE 20 MG TAB PO SCH (10:49)
[2017-05-09 04:59] VITALS: TEMP 98.4
[2017-05-09] MEDS: LEVOTHYROXINE 75 MCG TAB PO SCH (05:13)
[2017-05-09 05:18] LABS: % IMMATURE GRANULYOCYTES 0.5 % (0.0-1.1); ABSOLUTE IMMATURE GRANULOCYTES 0.02 10^3/uL (0.00-0.10); ABSOLUTE NRBC COUNT 0.02 10^3/uL (0-0.01); ADD DIFF? NO; ADD MORPH? YES; ADD SCAN? NO; ATYPICAL LYMPHOCYTE FLAG 0 (0-99); FRAGMENT RBC FLAG 0 (0-99); HEMOGLOBIN 8.4 g/dL (12.6-16.3); LEFT SHIFT FLG 0 (0-99); LIPEMIA HEMOLYSIS FLAG 80 (0-99); MEAN CELL HEMOGLOBIN 32.7 pg (27.9-34.1); MEAN CELL HEMOGLOBIN CONCENTR. 33.6 g/dL (32.4-36.7); MEAN CELL VOLUME 97.3 fL (81.5-99.8); MEAN PLATELET VOLUME 10.6 fL (8.7-11.7); NRBC-AUTO% 0.5 % (0.0-0.2); PLATELET CLUMPS FLAG 0 (0-99); PLATELET COUNT 55 10^3/uL (150-400); RED BLOOD CELL COUNT 2.57 10^6/uL (4.18-5.33)
[2017-05-09 05:28] LABS: RED CELL DISTRIBUTION WIDTH 21.9 % (11.5-15.2)
[2017-05-09 05:41] LABS: ALANINE AMINOTRANSFERASE 64 IU/L (9-52); ALBUMIN 2.3 g/dL (3.5-5.0); ALKALINE PHOSPHATASE 121 IU/L (38-126); ANION GAP 7 mEq/L (8-16); ASPARTATE AMINOTRANSFERASE 99 IU/L (14-46); BILIRUBIN,TOTAL 5.4 mg/dL (0.1-1.4); CALCIUM 7.8 mg/dL (8.5-10.4); CARBON DIOXIDE 21 mEq/l (22-31); CHLORIDE 105 mEq/L (97-110); CREATININE 0.6 mg/dL (0.6-1.0); GLOMERULAR FILTRATION RATE > 60; GLUCOSE 90 mg/dL (70-100); SODIUM 133 mEq/L (134-144); TOTAL PROTEIN 6.3 g/dL (6.3-8.2)
[2017-05-09 05:48] LABS: BILIRUBIN-CONJUGATED 2.4 mg/dL (0.0-0.5)
[2017-05-09 06:17] LABS: PLATELET ESTIMATE DECREASED (ADEQ)
[2017-05-09 06:21] LABS: HYPOCHROMIA 1+; MACROCYTES 1+; POLYCHROMASIA 1+
[2017-05-09] MEDS: FUROSEMIDE 20 MG TAB PO SCH (08:51)
[2017-05-09] MEDS: ACAMPROSATE CALCIUM 333 MG TAB PO SCH (08:51)
[2017-05-09] MEDS: FLUoxetine 20 MG CAP PO SCH (08:51)
[2017-05-09] MEDS: SULFAMETHOX/TMP 800/160 MG 1 TAB PO SCH (08:51)
[2017-05-09] MEDS: RIFAXIMIN 550 MG TAB PO SCH (08:51)
[2017-05-09] MEDS: PANTOPRAZOLE SODIUM 40 MG TAB PO SCH (08:51)
[2017-05-09] MEDS: SPIRONOLACTONE 50 MG TAB PO SCH (08:52)
[2017-05-09] MEDS: LACTULOSE 20 GM/30 ML UDCUP PO SCH (09:02)
[2017-05-09 09:40] VITALS: PULSE 68
--- NOTE | 2017-05-09 10:24 | SOAPPROG ---
SOAP Progress Note Assessment/Plan: Assessment: 1. ETOH cirrhosis 2. Variceal bleed s/p banding x 3 columns with 3 bands successfully deployed 3. Hepatic encephalopathy 4. Anemia- mutlifactorial and due to blood loss and cirrhosis 5. Coagulopathy Plan: 1. Hct improved after transfusion 2. Hepatic encephalopathy also improved. Recommendations: 1. Medications at discharge should include Lasix 20mg daily, Aldactone 50mg daily, Xifaxan 550mg po BID, Pantoprazole 40mg daily 2. No melatonin 3. 2gm sodium diet 4. Fluid restrict 2000ml daily as hyponatremia has been an issue for her 5. Lactulose 20gm titrated to 3 loose BMs daily 6. I have arranged her an outpatient GI f/u on 05/[address] Nava. We will have our office order CBC, CMP, PT/INR day prior 7. No NSAIDs or ASA 8. Repeat EGD in 8 wks for reassessment of varices. Call with questions. 05/09/17 10:19 Subjective: CC: Melena Doing better. No melena. Tolerating PO well. Confusion better but still feels a bit weak. She is ok going home today. Objective: Vital Signs Temp Pulse Resp BP Pulse Ox 36.9 C 68 17 100/57 L 93 05/09/17 04:57 05/09/17 08:00 05/09/17 08:00 05/09/17 08:00 05/09/17 08:00 Laboratory Results 05/09/17 04:53 05/09/17 04:53 05/08/17 05/09/17 05/10/17 05:59 05:59 05:59 Intake Total 2259 1850 Balance 2259 1850 PT 23.5 SEC (12.0-15.0) H 05/08/17 04:40 INR 2.08 (0.83-1.16) H 05/08/17 04:40 Physical Exam - Physical Exam General Appearance: no apparent distress EENT: scleral icterus (R), scleral icterus (L) Neck: supple Respiratory: lungs clear Cardiac/Chest: regular rate, rhythm, systolic murmur Abdomen: non-tender, soft, No distended, No guarding, No rebound, No ascites Skin: warm/dry, jaundice, other (Spider angoimata) Neuro/Psych: normal mood/affect, oriented x 3, other (No asterixis) ICD10 Worksheet Patient Problems: Problems Problem Status Onset Altered mental status, unspecified Acute Dehydration Acute Alcoholic hepatitis Acute Cirrhosis of liver Acute Dyspnea Acute Hypoxia Acute Liver failure Acute Pancytopenia Acute Pleural effusion, left Acute
--- NOTE | 2017-05-09 10:43 | PDDCSUM ---
Discharge Summary Discharge Summary: DISCHARGE DIAGNOSES: -acute upper gi bleed -bleeding esophageal varices -acute haptic encephalopathy -alcoholic cirrhosis CONSULTANTS: Dr. Rahman PROCEDURES: Esophagogastroduodenoscopy with banding of 3 esophageal varices HOSPITAL COURSE SUMMARY: This patient with known alcoholic cirrhosis presented with encephalopathy and melenic stools and was found to have bleeding esophageal varices. She was admitted to the hospital. She was treated with IV hydration, and remained hemodynamically stable but did require transfusion of 2 units packed red blood cells. She did receive octreotide therapy and ongoing proton pump therapy. Varices banding was successful and without complication. There is no further bleeding after this. The patient's octreotide was stopped and she is now eating without difficulty. She is up and ambulating in the hallway. Her encephalopathy has cleared nicely back to her baseline mentation. At this point she is felt stable for discharge to home. The patient has been sober now since January 15 and intends to remain sober. She is participating in a support group. I did talk with her about the need to continue managing and monitoring her liver disease and esophageal disease very closely and she understands this and will continue on with her last turner. She does understand that she will probably at some point come to need liver transplant and we reviewed that in detail at this time. PENDING TEST RESULTS: None MEDICATION CHANGES: Addition of Xifaxan to her lactulose, and decreased Protonix to once daily Decrease in dose of lasix to 20 mg daily and aldactone to 50 mg daily FOLLOW-UP PLAN: With her last turner Dr Bailey as previously planned Greater than 35 minutes bedside and care coordination time today
[2017-05-09 11:52] VITALS: BP 97/53; RESP 18; O2SAT 95
--- NOTE | 2017-05-09 13:42 | PDIAF ---
- Diagnosis Diagnosis: hepatic encephalopathy; cirrhosis; esoph varices Code Status: Full Code - Medication Management Discharge Medications: Medications to Continue on Transfer Levothyroxine [Synthroid 75 mcg (*)] 75 mcg PO DAILY@06 03/24/17 [Last Taken 11/13] Acamprosate Calcium [Campral 333 MG (*)] 666 mg PO TID #180 tab 04/02/17 [Last Taken 05/02/17] Lactulose 20 gm PO TID 30 Days ml 04/02/17 [Last Taken 05/02/17] Melatonin [Melatonin 3 MG (*)] 3 mg PO HS tab 04/02/17 [Last Taken 05/02/17] FLUoxetine [Prozac 20 MG (*)] 40 mg PO DAILY #60 cap 04/20/17 [Last Taken ] Pantoprazole Sodium [Protonix 40mg (*)] 40 mg PO DAILY tab 05/08/17 [Last Taken Unknown] Rifaximin [Xifaxan] 550 mg PO BID #60 tab 05/08/17 [Last Taken Unknown] Sulfamethox/Tmp 800/160 mg [Bactrim DS] 1 ea PO BID #4 tab 05/08/17 [Last Taken Unknown] Furosemide [Lasix 20 MG (*)] 20 mg PO DAILY #60 tab 05/09/17 [Last Taken Unknown ] Ondansetron Odt [Zofran Odt 4 mg (*)] 4 mg PO Q4 #20 tab 05/09/17 [Last Taken Unknown] Spironolactone [Aldactone] 50 mg PO DAILY tab 05/09/17 [Last Taken Unknown] Discharge Medications: Refer to the Discharge Home Medication list for PRN reason. - Orders Services needed: Home Care, Registered Nurse, Certified [employer], Physical Therapy, Occupational Therapy Home Care Face to Face: I certify that this patient was under my care and that I had the required [id number] encounter meeting the encounter requirements on the discharge day. My findings support the fact that the patient is homebound as defined in Home Care Face to Face Continued: CMS Chapter 7 Medicare Benefits Manual 30.1.1 , The condition of the patient is such that there exists a normal inability to leave home and consequently, leaving home would require a considerable and taxing effort. Diet Recommendation: sodium restricted Diet Texture: Regular Texture Diet - Follow Up Care Current Providers and Referrals: Mainor Rahman MD [Medical Doctor] -
--- NOTE | 2017-05-09 16:01 | ASMTCMCOM ---
CM Note CM Note Notes: Pt to DC today. Pt's brother will provide transport. Alerted [facility] to DC and faxed final orders. Date Signed: 05/09/2017 04:01 PM Electronically Signed By:Julee Loaiza LCSW
--- NOTE | 2017-05-09 16:03 | ASDISCHSUM ---
Discharge Information Plan Status:Home with Home Health Medically Cleared to Leave: Discharge Date:05/09/2017 02:27 PM D/C Disposition:Home Health Service ADT D/C Disposition:Home, Routine, Self-Care Projected Discharge Date:05/07/2017 11:00 AM Transportation at D/C: Discharge Delay Reason: Follow-Up Date:05/07/2017 11:00 AM Discharge Slot: Final Diagnosis: Placement Information Referral Type:*Home Health Care Services Referral ID:[id number] Provider Name:[facility] [place] Address 1:[address] [address] Phone Number: Address 2: Fax Number: [facility]:[place] Selection Factors: State:[place] Patient Contact Information Contact Name:JACQUELYN Relationship: Address: Work Phone: City:[facility] Phone: [facility] Code:[place] Email: Financial Information Financial Class: Primary Plan Desc:[place] Primary Plan Number:[id number] Secondary Plan Desc: Secondary Plan Number: Assessment Information [facility] CM Progress Note CM Note CM Note Notes: Pt admitted from with hepatic encephalopathy. Pt is current with [facility] for RN, PT and OT. alerted Muriel and faxed referral. Pt recently admitted in mid-March. See Case Management note b Alyssa Alcala for further details. C/M to follow for any new DC needs. Date Signed: 05/05/2017 03:58 PM Electronically Signed By:Julee Loaiza LCSW [facility] CM Progress Note CM Note CM Note Notes: Met w/pt to discuss dc poc. She plans to resume [facility] services w/Muriel- rio Levy from [facility]. Pt had questions regarding [facility] coverage. She will likely want to use Medicaid benefits for transport home from hospital at [place]. Advised her to contact [facility] regarding her questions about insurance covering ambulance ride from home to ER if she should need to do that in future. CM w/f. Date Signed: 05/07/2017 03:32 PM Electronically Signed By:Jaymie Pandya RN [facility] CM Progress Note CM Note CM Note Notes: Chart reviewed. Met with pt to verify [facility] agency and transportation needs. Potentially to [place] later today or tomorrow. Updates sent to [facility]. Awaiting response, Home address and phone verified. CM to follow. Date Signed: 05/08/2017 10:27 AM Electronically Signed By:Leona Castillo RN [facility] CM Progress Note CM Note CM Note Notes: Pt to DC today. Pt's brother will provide transport. Alerted [facility] to ID and faxed final orders. Date Signed: 05/09/2017 04:01 PM Electronically Signed By:Julee Loaiza LCSW Intervention Information
== END 2017-05-09 14:27 | disposition home or self-care (01) | DRG 432 ==
LOC: F1N 18:31
PROVIDERS: ADMIT Hospitalist; ATTEND Internal Medicine
PROC: 30233N1 Transfusion of Nonautologous Red Blood Cells into Peripheral Vein, Percutaneous Approach (ICD-10-PCS; 2017-05-05)
PROC: 06L38CZ Occlusion of Esophageal Vein with Extraluminal Device, Via Natural or Artificial Opening Endoscopic (ICD-10-PCS; principal; 2017-05-06 10:00)
DX: K70.40 Alcoholic hepatic failure without coma (principal); K70.30 Alcoholic cirrhosis of liver without ascites; I85.11 Secondary esophageal varices with bleeding; K92.1 Melena; F05 Delirium due to known physiological condition; D68.4 Acquired coagulation factor deficiency; E87.1 Hypo-osmolality and hyponatremia; E87.2 Acidosis; J90 Pleural effusion, not elsewhere classified; F10.21 Alcohol dependence, in remission; E03.9 Hypothyroidism, unspecified; F32.9 Major depressive disorder, single episode, unspecified; D62 Acute posthemorrhagic anemia; D69.6 Thrombocytopenia, unspecified; K21.9 Gastro-esophageal reflux disease without esophagitis; D63.8 Anemia in other chronic diseases classified elsewhere
CPT/HCPCS: 96374; 97161-GP; 97166-GO; 97535-GO; J0171; J0330; J2353; J2405; J2704; J3010; P9016

== ENCOUNTER 2017-06-13 17:30 | Observation (INO) | payer MEDICAID ==
[2017-06-13] MEDS ORDERED: NS 500 ML IV ONE (17:33)
--- NOTE | 2017-06-13 17:43 | EDPHY ---
H & P HPI/ROS: HPI CHIEF COMPLAINT: Syncope, altered mental status, generalized weakness HISTORY OF PRESENT ILLNESS: This patient is a 57-year-old female, end-stage liver disease, she was at her primary care doctor's office today and had multiple syncopal episodes. Her brother Kalia is at bedside. The patient arrived by EMS. Kalia reports that she has been rather weak recently worse over the last week and more confused. He is concerned about her ammonia level. Patient arrives by EMS appears slightly confused. She is jaundiced and icteric. Abdomen is not distended is soft I do not appreciate a significant fluid wave. She has no complaints but does appear confused. Kalia her brother reports that he is concerned about how weak she is and maybe the ammonia level is high. She is currently going through the process of trying to be started on the transplant list. Past Medical History: End-stage liver disease, liver cirrhosis, alcohol- induced liver cirrhosis, history of acute GI bleed, anemia, thrombocytopenia Past Surgical History: No recent surgery Social History: Denies daily use drugs alcohol tobacco. She reports last alcohol was in December. Family History: Noncontributory. ROS REVIEW OF SYSTEMS: A comprehensive 10 point review of systems is otherwise negative aside from elements mentioned in the history of present illness. Exam Constitutional appears nontoxic, appears confused, triage nursing summary reviewed, vital signs reviewed, awake/alert. Eyes icteric eyes HENT normal inspection, atraumatic, moist mucus membranes, no epistaxis, neck supple/ no meningismus, no raccoon eyes. Respiratory clear to auscultation bilaterally, normal breath sounds, no respiratory distress, no wheezing. Cardiovascular rate normal, regular rhythm, no murmur, no edema, distal pulses normal. Gastrointestinal soft, non-tender, no rebound, no guarding, normal bowel sounds, no distension, no pulsatile mass. Genitourinary no CVA tenderness. Musculoskeletal no midline vertebral tenderness, full range of motion, no calf swelling, no tenderness of extremities, no meningismus, good pulses, neurovascularly intact. Skin jaundice, pink, warm, & dry, no rash, skin atraumatic. Neurologic confused, awake, alert and oriented x 3, AAOx3, moves all 4 extremities equally, motor intact, sensory intact, CN II-XII intact, normal cerebellar, normal vision, normal speech. No Asterixis on exam. Psychiatric normal mood/affect. Heme/Lymph/Immune no lymphadenopathy. Differential Diagnosis: Includes but is not limited to in a particular order hyper and no primitivo, electrolyte disturbance including hyponatremia, dehydration , anemia, thrombocytopenia, worsening liver disease, infection, cardiogenic syncope, cardiac arrhythmia, orthostatic syncope, vasovagal syncope, dehydration Medical Decision Making: Plan for this patient workup for syncope as well as altered mental status. Will proceed with EKG, cardiac marker, chest x-ray, ammonia level and electrolytes. Check UA. Low threshold for admission due to confusion. Re-evaluation: EKG interpretation by me on record in [facility] system. Impression time of EKG 1745, this is sinus rhythm rate of 82 I do not appreciate acute ischemic change. ED x-ray chest one view: This shows a left lower lobe either consolidation with pleural effusion versus pulmonary infarct. Will proceed with CT angiogram of the chest rule out pulmonary embolism possibly causing infarct of left lower lobe versus pneumonia versus pleural effusion. The CT of the chest will give us more information to help delineate this. Reason for CT angiogram altered mental status, new left lower lobe consolidation. Discussed this with the patient. 2100: I spoke with Dr. Baldwin who agrees to admit this patient patient will be admitted for multiple episodes of syncope prior to arriving to the emergency room. She has not had any syncopal episode here. Her blood work has been reviewed she is anemic, thrombocytopenic which appear to be at baseline. Kidney functions normal. Her EKG is nonischemic. She does have a prolonged QT interval. Patient be admitted to the hospitalist service. Additionally she has liver cirrhosis small left pleural effusion. Unclear cause of altered mental status and confusion at this time. Her ammonia levels normal. Sodium is slightly low. Urine pending. Patient's blood work reviewed. Elevated bilirubin. Additionally this patient be admitted for syncope. Her abdomen is soft nontender. I do not feel that she needs any imaging of her abdomen at this time. Urinalysis pending. Source: Patient, EMS - Personal History Tetanus Vaccine Date: 2015 - Medical/Surgical History Hx Asthma: No Hx Chronic Respiratory Disease: No Hx Diabetes: No Hx Cardiac Disease: No Hx Renal Disease: No Hx Cirrhosis: Yes Hx Alcoholism: Yes Hx HIV/AIDS: No Hx Splenectomy or Spleen Trauma: No Other PMH: cirhossis, hypothyroid, depression, anxiety. Surg-left breast benign tumor - Social History Smoking Status: Current every day smoker Constitutional: Initial Vital Signs Temperature (C) 36.9 C 06/13/17 18:06 Heart Rate 82 06/13/17 18:06 Respiratory Rate 18 06/13/17 18:06 Blood Pressure 122/59 H 06/13/17 18:06 O2 Sat (%) 99 06/13/17 18:06 O2 Delivery Mode Room Air Allergies/Adverse Reactions: codeine Allergy (Verified 04/17/17 09:23) Vomiting Penicillins Allergy (Verified 04/17/17 09:23) Other-Enter Comments Home Medications: Medication Instructions Recorded Levothyroxine [Synthroid 75 mcg 75 mcg PO DAILY@06 03/24/17 (*)] Acamprosate Calcium [Campral 333 666 mg PO TID #180 tab 04/02/17 MG (*)] FLUoxetine [Prozac 20 MG (*)] 40 mg PO DAILY #60 cap 04/20/17 Pantoprazole Sodium [Protonix 40mg 40 mg PO DAILY tab 05/08/17 (*)] Rifaximin [Xifaxan] 550 mg PO BID #60 tab 05/08/17 Ferrous Sulfate [Ferrous Sulf 325 325 mg PO DAILY 06/13/17 MG (*)] Furosemide [Lasix 20 MG (*)] 80 mg PO DAILY 06/13/17 Herbals/Supplements -Info Only 1 ea PO DAILY 06/13/17 Lactulose 20 gm PO TID 06/13/17 Spironolactone 200 mg PO DAILY 06/13/17 Medical Decision Making - Data Points Laboratory Results: Laboratory Results 06/13/17 19:15 06/13/17 17:55 Microbiology Results: MICROBIOLOGY 06/13/17 19:20 Blood Blood Culture - Preliminary 06/13/17 19:51 Blood Blood Culture - Preliminary Medications Given: Discontinued Medications Acamprosate (Campral) 666 mg PO TID [facility] Stop: 12/11/17 08:59 Last Admin: 06/14/17 15:46 Dose: 666 mg Fluoxetine HCl (Prozac) 40 mg PO DAILY [facility] Stop: 12/11/17 08:59 Last Admin: 06/14/17 09:00 Dose: 40 mg Sodium Chloride (Ns) 500 mls @ 0 mls/hr IV EDNOW ONE; Wide Open PRN Reason: Protocol Stop: 06/13/17 17:34 Last Admin: 06/13/17 18:03 Dose: 500 mls Sodium Chloride (Ns) 1,000 mls @ 50 mls/hr IV CONT [facility] Stop: 12/10/17 22:44 Last Admin: 06/13/17 23:17 Dose: 1,000 mls Influenza Virus Vaccine Quadrival (Fluarix Quad [id number]) 0.5 ml IM .ONCE ONE Stop: 06/14/17 15:09 Last Admin: 06/14/17 15:46 Dose: 0.5 ml Levothyroxine Sodium (Synthroid) 75 mcg PO DAILY@06 [facility] Stop: 12/11/17 05:59 Last Admin: 06/14/17 08:59 Dose: 75 mcg Ondansetron HCl (Zofran) 4 mg IVP Q4HRS PRN PRN Reason: Nausea/Vomiting, Can't Take PO Stop: 12/10/17 22:37 Last Admin: 06/14/17 15:45 Dose: 4 mg Pantoprazole Sodium (Protonix) 40 mg PO DAILY [facility] Stop: 12/11/17 08:59 Last Admin: 06/14/17 09:00 Dose: 40 mg Rifaximin (Xifaxan) 550 mg PO BID [facility]ARA PRN Reason: Protocol Stop: 07/14/17 08:59 Last Admin: 06/14/17 09:00 Dose: 550 mg Departure - Departure Disposition: [facility] In[facility] Acute Clinical Impression: Hyponatremia, Generalized weakness, Hyperbilirubinemia Liver failure Qualifiers: Liver failure chronicity: chronic Hepatic coma status: without hepatic coma Qualified Code(s): K72.10 - Chronic hepatic failure without coma Altered mental status Qualifiers: Altered mental status type: unspecified Qualified Code(s): R41.82 - Altered mental status, unspecified Syncope Qualifiers: Syncope type: unspecified Qualified Code(s): R55 - Syncope and collapse Condition: Fair
--- NOTE | 2017-06-13 17:49 | CPEKG ---
Heart Rate: 82 RR Interval: 732 P-R Interval: 172 QRSD Interval: 100 QT Interval: 436 QTC Interval: 510 P [place]: 56 QRS [place]: 2 T Wave [place]: 38 EKG Severity - BORDERLINE ECG - EKG Impression: SINUS RHYTHM EKG Impression: BORDERLINE PROLONGED QT INTERVAL Electronically Signed By: Harlan Hughes 13-Jun-2017 23:29:03
[2017-06-13 18:35] LABS: ALANINE AMINOTRANSFERASE 39 IU/L (9-52); ALBUMIN 2.8 g/dL (3.5-5.0); ALKALINE PHOSPHATASE 217 IU/L (38-126); ANION GAP 15 mEq/L (8-16); ASPARTATE AMINOTRANSFERASE 92 IU/L (14-46); BILIRUBIN,TOTAL 11.1 mg/dL (0.1-1.4); CALCIUM 8.5 mg/dL (8.5-10.4); CARBON DIOXIDE 15 mEq/l (22-31); CHLORIDE 101 mEq/L (97-110); CREATININE 0.7 mg/dL (0.6-1.0); GLOMERULAR FILTRATION RATE > 60; GLUCOSE 77 mg/dL (70-100); MAGNESIUM 1.8 mg/dL (1.6-2.3); POTASSIUM 4.6 mEq/L (3.5-5.2); SODIUM 131 mEq/L (134-144); TOTAL PROTEIN 7.6 g/dL (6.3-8.2)
[2017-06-13 18:47] LABS: CREATINE KINASE-MB FRACTION 0.47 ng/mL (0.00-3.19); TROPONIN I 0.015 ng/mL (0.000-0.034)
[2017-06-13] MEDS ORDERED: IOPAMIDOL (ISOVUE 370) 100 ML BTL IV ONE (18:57)
[2017-06-13 18:58] LABS: BILIRUBIN-CONJUGATED 5.8 mg/dL (0.0-0.5); BILIRUBIN-UNCONJUGATED 5.3 mg/dL (0.0-1.1)
[2017-06-13 19:32] LABS: ABSOLUTE IMMATURE GRANULOCYTES 0.28 10^3/uL (0.00-0.10); ABSOLUTE NRBC COUNT 0.02 10^3/uL (0-0.01); ADD DIFF? NO; ADD MORPH? YES; ADD SCAN? NO; ATYPICAL LYMPHOCYTE FLAG 10 (0-99); FRAGMENT RBC FLAG 40 (0-99); HEMATOCRIT 25.5 % (38.0-47.0); HEMOGLOBIN 8.8 g/dL (12.6-16.3); LEFT SHIFT FLG 20 (0-99); LIPEMIA HEMOLYSIS FLAG 90 (0-99); MEAN CELL HEMOGLOBIN 36.1 pg (27.9-34.1); MEAN CELL HEMOGLOBIN CONCENTR. 34.5 g/dL (32.4-36.7); MEAN CELL VOLUME 104.5 fL (81.5-99.8); MEAN PLATELET VOLUME 11.6 fL (8.7-11.7); NRBC-AUTO% 0.2 % (0.0-0.2); PLATELET CLUMPS FLAG 0 (0-99); PLATELET COUNT 102 10^3/uL (150-400); RED BLOOD CELL COUNT 2.44 10^6/uL (4.18-5.33)
[2017-06-13 19:41] LABS: RED CELL DISTRIBUTION WIDTH 21.3 % (11.5-15.2)
[2017-06-13 20:05] LABS: ECHINOCYTES 1+; HYPOCHROMIA 1+; KERATOCYTES 1+; MACROCYTES 1+; POLYCHROMASIA 1+
[2017-06-13 20:06] LABS: PLATELET ESTIMATE DECREASED (ADEQ)
[2017-06-13 20:31] LABS: INR 2.16 (0.83-1.16); PROTIME(PATIENT) 24.3 SEC (12.0-15.0)
[2017-06-13 20:32] LABS: APTT 41.2 SEC (23.0-38.0)
[2017-06-13] MEDS ORDERED: ONDANSETRON 4 MG/2 ML VIAL IVP PRN (22:38)
[2017-06-13] MEDS ORDERED: NS 1,000 ML IV SCH (22:45)
[2017-06-14] MEDS ORDERED: D50W 25 GM/50 ML SYR IVP PRN (00:04)
[2017-06-14 05:36] LABS: % IMMATURE GRANULYOCYTES 2.1 % (0.0-1.1); ABSOLUTE IMMATURE GRANULOCYTES 0.24 10^3/uL (0.00-0.10); ABSOLUTE NRBC COUNT 0.02 10^3/uL (0-0.01); ADD DIFF? NO; ADD MORPH? YES; ADD SCAN? NO; ATYPICAL LYMPHOCYTE FLAG 0 (0-99); FRAGMENT RBC FLAG 20 (0-99); HEMATOCRIT 23.5 % (38.0-47.0); HEMOGLOBIN 7.9 g/dL (12.6-16.3); LEFT SHIFT FLG 20 (0-99); LIPEMIA HEMOLYSIS FLAG 80 (0-99); MEAN CELL HEMOGLOBIN 35.9 pg (27.9-34.1); MEAN CELL HEMOGLOBIN CONCENTR. 33.6 g/dL (32.4-36.7); MEAN CELL VOLUME 106.8 fL (81.5-99.8); MEAN PLATELET VOLUME 10.2 fL (8.7-11.7); NRBC-AUTO% 0.2 % (0.0-0.2); PLATELET CLUMPS FLAG 0 (0-99); PLATELET COUNT 74 10^3/uL (150-400)
[2017-06-14 05:44] LABS: RED CELL DISTRIBUTION WIDTH 21.4 % (11.5-15.2)
[2017-06-14 05:48] LABS: INR 2.34 (0.83-1.16); PROTIME(PATIENT) 25.9 SEC (12.0-15.0)
[2017-06-14 05:49] LABS: APTT 45.3 SEC (23.0-38.0)
[2017-06-14 05:52] LABS: ALANINE AMINOTRANSFERASE 37 IU/L (9-52); ALBUMIN 2.4 g/dL (3.5-5.0); ALKALINE PHOSPHATASE 177 IU/L (38-126); ANION GAP 11 mEq/L (8-16); ASPARTATE AMINOTRANSFERASE 70 IU/L (14-46); BILIRUBIN,TOTAL 10.5 mg/dL (0.1-1.4); CALCIUM 8.2 mg/dL (8.5-10.4); CARBON DIOXIDE 20 mEq/l (22-31); CHLORIDE 102 mEq/L (97-110); CREATININE 0.8 mg/dL (0.6-1.0); GLOMERULAR FILTRATION RATE > 60; GLUCOSE 74 mg/dL (70-100); MAGNESIUM 1.8 mg/dL (1.6-2.3); POTASSIUM 4.8 mEq/L (3.5-5.2); SODIUM 133 mEq/L (134-144); SPECIMEN ICTERUS 9
[2017-06-14] MEDS ORDERED: LEVOTHYROXINE 75 MCG TAB PO SCH (06:00)
[2017-06-14 06:05] LABS: HYPOCHROMIA 1+; KERATOCYTES 1+; MACROCYTES 1+; PLATELET ESTIMATE DECREASED (ADEQ); POLYCHROMASIA 1+
[2017-06-14 06:32] LABS: BILIRUBIN-CONJUGATED 5.3 mg/dL (0.0-0.5); BILIRUBIN-UNCONJUGATED 5.2 mg/dL (0.0-1.1)
[2017-06-14 07:43] LABS: COLOR AMBER; LEUKOCYTE ESTERASE,URINE NEGATIVE (NEGATIVE); NITRITE,URINE NEGATIVE (NEGATIVE)
--- NOTE | 2017-06-14 07:54 | PDGENHP ---
History and Physical - Chief Complaint syncope, confusion, generalized weakness - History of Present Illness Source - patient provides history and appears reliable. She is oriented x 3 at time of my interview. No family at bedside. EMR reviewed. 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 Patient has been sober since December of this year. she has been following up with Transplant team. primary GI is Dr. Nava. Patient reports she was having some blood drawn earlier today when she felt lightheaded and had syncopal episode lasting a few seconds. No associated chest pain/palpitations but patient reports incresed/chronic increased WOB. Patient reports she normally has to drink juice before hand to help with her symptoms during blood draws but today did not. She also has not had a substantial meal only eating an apple. Patient reports recently increasing fatigue and increasing RUQ abodminal pain. She was due to have an US completed to rule out portal venous thrombosis. Patient notes she has had decreased appetite in the last few days as well as more GI upset and heartburn sensation. Patient reports she has been compliant with aggressive diuresis with lasix and spironolactone. she has been declining in weight approx 1-2 lbs daily by her report with improved edema to both lower extremities and her abdominal distension has decreased as well. Patient denies nausea/vomiting. no diarrhea. stools soft since patient put on rifaximin. denies melena/ hematochezia. History Information - Allergies/Home Medication List Allergies/Adverse Reactions: codeine Allergy (Verified 04/17/17 09:23) Vomiting Penicillins Allergy (Verified 04/17/17 09:23) Other-Enter Comments Home Medications: Levothyroxine [Synthroid 75 mcg (*)] 75 mcg PO DAILY@06 03/24/17 [Last Taken ] Ferrous Sulfate [Ferrous Sulf 325 MG (*)] 325 mg PO DAILY 06/13/17 [Last Taken 06/13/17] Furosemide [Lasix 20 MG (*)] 80 mg PO DAILY 06/13/17 [Last Taken 06/13/17] Herbals/Supplements -Info Only 1 ea PO DAILY 06/13/17 [Last Taken 06/13/17] Lactulose 20 gm PO TID 06/13/17 [Last Taken 06/13/17 09:00] Spironolactone 200 mg PO DAILY 06/13/17 [Last Taken 06/13/17] I have personally reviewed and updated: family history, medical history, social history, surgical history - Past Medical History Additional medical history: ESLD with history of alcoholic cirrhosis. 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 hx GIB. anemia. coagulopathy with thrombocytopenia, elevated inr. murmur. esophageal varices. chronic RUQ abdominal pain - Surgical History Additional surgical history: colonoscopy. EGD - Family History Additional family history: brother cancer, HTN, etoh use - Social History Smoking Status: Former smoker (quite 02/2017) Tobacco Use: Cigarettes Alcohol Use: Sober (since january 15 2017) Drug Use: None Additional social history: COR FULL. patient desires brother KALIA cannon to act as proxy if needed. Review of Systems Review of Systems: ROS: 10pt was reviewed & negative except for what was stated in HPI & below Constitutional: Reports: chills, malaise, weakness (generalized). Denies: diaphoresis, fever, weight loss EENMT: Denies: blurred vision, eye pain, nose congestion, sore throat Cardiac: Reports: edema (improved), lightheadedness, syncope (see hpi). Denies : chest pain, palpitations Respiratory: Reports: shortness of breath (patient feels like she has to "pant" ). Denies: cough, orthopnea, wheezing Gastrointestinal: Reports: abdominal pain, abdominal distention (improving with diuresis), nausea. Denies: vomitting, black stools, blood streaked stools, rectal pain, rectal bleeding, diarrhea Genitourinary: Reports: hematuria (clots). Denies: dysuria Muscolosketal: Denies: joint pain, muscle pain, muscle stiffness Skin: Reports: change in color (jaundice worsened). Denies: rash Neurological: Reports: weakness (generalized). Denies: anxiety, depressed, headache Hematologic/Lymphatic: Reports: anemia, easy bleeding (gums), easy bruising. Denies: blood clots Physical Exam Physical Exam: Selected Entries 06/13/17 06/14/17 18:06 03:25 Blood Pressure Automatic Method Heart Rate 82 90 Respiratory 18 17 Rate O2 Sat (%) 99 95 Temperature (C) 36.9 C 36.9 C Blood Pressure 122/59 H 107/48 L Mean Arterial 80 67 Pressure (MAP) Activity During At Rest Vital Signs O2 Delivery Room Air Room Air Mode Blood Pressure Upper Source Arm Temperature Oral Oral Source Heart Rate Automatic Source Temp Pulse Resp BP Pulse Ox 36.7 C 88 15 102/54 L 95 06/14/17 07:05 06/14/17 07:05 06/14/17 07:05 06/14/17 07:05 06/14/17 07:05 Constitutional: no apparent distress, chronically ill appearing, cachectic, No appears nourished Eyes: PERRL, EOMI, icteric sclera, scleral injection, No anicteric sclera, No pale conjunctiva Ears, Nose, Mouth, Throat: poor dentition, dry mucous membranes, other (no nasal discharge), No no oral mucosal ulcers Cardiovascular: regular rate and rhythym, systolic murmur (3/6), pulses symmetric bilaterally, edema (2+ pitting) Peripheral Pulses: 1+: dorsalis-pedis (R) (limited 2/2 edema), dorsalis-pedis (L ) (limited 2/2 edema) Respiratory: no respiratory distress, no rales or rhonchi, clear to auscultation , other (diminished L>R base. ) Gastrointestinal: normoactive bowel sounds, tenderness (RUQ.), ascites, hepatosplenomegally, No pineda's sign, No guarding, No rebound, No distension Genitourinary: no bladder tenderness, No fairchild in urethra Skin: warm, no rashes or abrasions, other (jaundiced. multiple spider angiomas diffusely) Musculoskeletal: generalized weakness, other (moves all extremities. sits up independently. generalized weakness. ), No joint tenderness, No muscular tenderness Neurologic: AAOx3, sensation intact bilaterally, other (nonfocal neurologic exam. mild tremor but neg asterixis. ), No weakness, No facial droop Psychiatric: interacting appropriately, thought process linear, anxious, No depressed, No agitated, No poor insight, No poor judgement, No poor memory Lab Data & Imaging Review 06/14/17 03:52 06/14/17 03:52 WBC 11.25 10^3/uL (3.80-9.50) H 06/14/17 03:52 RBC 2.20 10^6/uL (4.18-5.33) L 06/14/17 03:52 Hgb 7.9 g/dL (12.6-16.3) L 06/14/17 03:52 Hct 23.5 % (38.0-47.0) L 06/14/17 03:52 MCV 106.8 fL (81.5-99.8) H 06/14/17 03:52 MCH 35.9 pg (27.9-34.1) H 06/14/17 03:52 MCHC 33.6 g/dL (32.4-36.7) 06/14/17 03:52 RDW 21.4 % (11.5-15.2) H 06/14/17 03:52 Plt Count 74 10^3/uL (150-400) L 06/14/17 03:52 MPV 10.2 fL (8.7-11.7) 06/14/17 03:52 Neut % (Auto) 69.8 % (39.3-74.2) 06/14/17 03:52 Lymph % (Auto) 13.7 % (15.0-45.0) L 06/14/17 03:52 [place] % (Auto) 12.5 % (4.5-13.0) 06/14/17 03:52 Eos % (Auto) 1.5 % (0.6-7.6) 06/14/17 03:52 Baso % (Auto) 0.4 % (0.3-1.7) 06/14/17 03:52 Nucleat RBC Rel Count 0.2 % (0.0-0.2) 06/14/17 03:52 Absolute Neuts (auto) 7.85 10^3/uL (1.70-6.50) H 06/14/17 03:52 Absolute Lymphs (auto) 1.54 10^3/uL (1.00-3.00) 06/14/17 03:52 Absolute Monos (auto) 1.41 10^3/uL (0.30-0.80) H 06/14/17 03:52 Absolute Eos (auto) 0.17 10^3/uL (0.03-0.40) 06/14/17 03:52 Absolute Basos (auto) 0.04 10^3/uL (0.02-0.10) 06/14/17 03:52 Absolute Nucleated RBC 0.02 10^3/uL (0-0.01) H 06/14/17 03:52 Immature Gran % 2.1 % (0.0-1.1) H 06/14/17 03:52 Immature Gran # 0.24 10^3/uL (0.00-0.10) H 06/14/17 03:52 Platelet Estimate DECREASED (ADEQ) L 06/14/17 03:52 Polychromasia 1+ H 06/14/17 03:52 Hypochromasia 1+ H 06/14/17 03:52 Tear Drop Cells 1+ H 06/13/17 19:15 Oval Macrocytes 1+ H 06/14/17 03:52 Echinocytes 1+ H 06/13/17 19:15 Keratocytes 1+ H 06/14/17 03:52 PT 25.9 SEC (12.0-15.0) H 06/14/17 03:52 INR 2.34 (0.83-1.16) H 06/14/17 03:52 APTT 45.3 SEC (23.0-38.0) H 06/14/17 03:52 D-Dimer 9.86 ug/mLFEU (0.00-0.50) H 06/13/17 19:15 Sodium 133 mEq/L (134-144) L 06/14/17 03:52 Potassium 4.8 mEq/L (3.5-5.2) 06/14/17 03:52 Chloride 102 mEq/L (97-110) 06/14/17 03:52 Carbon Dioxide 20 mEq/l (22-31) L 06/14/17 03:52 Anion Gap 11 mEq/L (8-16) 06/14/17 03:52 BUN 14 mg/dL (7-23) 06/14/17 03:52 Creatinine 0.8 mg/dL (0.6-1.0) 06/14/17 03:52 Estimated GFR > 60 06/14/17 03:52 Glucose 74 mg/dL (70-100) 06/14/17 03:52 POC Glucose 175 mg/dL (70-100) H 06/14/17 00:50 Calcium 8.2 mg/dL (8.5-10.4) L 06/14/17 03:52 Phosphorus 3.9 mg/dL (2.5-4.5) 06/14/17 03:52 Magnesium 1.8 mg/dL (1.6-2.3) 06/14/17 03:52 Total Bilirubin 10.5 mg/dL (0.1-1.4) H 06/14/17 03:52 Conjugated Bilirubin 5.3 mg/dL (0.0-0.5) H 06/14/17 03:52 Unconjugated Bilirubin 5.2 mg/dL (0.0-1.1) H 06/14/17 03:52 Icterus Index 9 06/14/17 03:52 AST 70 IU/L (14-46) H 06/14/17 03:52 ALT 37 IU/L (9-52) 06/14/17 03:52 Alkaline Phosphatase 177 IU/L (38-126) H 06/14/17 03:52 Ammonia < 9.0 uMOL/L (9.0-30.0) L 06/13/17 19:15 Creatine Kinase 30 IU/L (0-156) 06/13/17 17:55 CK-MB (CK-2) Fraction 0.47 ng/mL (0.00-3.19) 06/13/17 17:55 Troponin I 0.015 ng/mL (0.000-0.034) 06/13/17 17:55 NT-Pro-B Natriuret Pep 205 pg/mL (0-125) H 06/13/17 17:55 Total Protein 7.0 g/dL (6.3-8.2) 06/14/17 03:52 Albumin 2.4 g/dL (3.5-5.0) L 06/14/17 03:52 Lipase 264 IU/L (23-300) 06/13/17 17:55 TSH 2.480 uIU/mL (0.465-4.680) 06/14/17 03:52 Urine Color MELO 06/14/17 Unknown Urine Appearance CLEAR 06/14/17 Unknown Urine pH 5.0 (5.0-7.5) 06/14/17 Unknown Ur Specific [place] > 1.035 (1.002-1.030) H 06/14/17 Unknown Urine Protein NEGATIVE (NEGATIVE) 06/14/17 Unknown Urine Ketones NEGATIVE (NEGATIVE) 06/14/17 Unknown Urine Blood NEGATIVE (NEGATIVE) 06/14/17 Unknown Urine Nitrate NEGATIVE (NEGATIVE) 06/14/17 Unknown Urine Urobilinogen NEGATIVE EU (0.2-1.0) 06/14/17 Unknown Ur Leukocyte Esterase NEGATIVE (NEGATIVE) 06/14/17 Unknown Urine Glucose NEGATIVE (NEGATIVE) 06/14/17 Unknown Urine Opiates Screen NEGATIVE (NEGATIVE) 06/13/17 23:59 Urine Barbiturates NEGATIVE (NEGATIVE) 06/13/17 23:59 Ur Phencyclidine Scrn NEGATIVE (NEGATIVE) 06/13/17 23:59 Ur Amphetamine Screen NEGATIVE (NEGATIVE) 06/13/17 23:59 U Benzodiazepines Scrn NEGATIVE (NEGATIVE) 06/13/17 23:59 Urine Cocaine Screen NEGATIVE (NEGATIVE) 06/13/17 23:59 U Marijuana (THC) Screen NON-NEGATIVE (NEGATIVE) H 06/13/17 23:59 Imaging Review: Portable Chest, 18:08 History: Syncope, chest pain, liver failure Comparison: May 04, 2017 Findings: Is new dense left lower lobe consolidation associated with increased left pleural effusion. The left upper lobe and right lung remain normally aerated. Heart size and pulmonary vascularity are normal. Impression: Suspect left lower lobe pneumonia. A pulmonary infarction cannot be excluded. Results called and discussed with Harlan Hughes MD, at 06/13/2017 18:22 CT Pulmonary Angiography History: Elevated D-dimer. Confusion. Technique: Multidetector helical CT imaging was performed through the chest while 90 mL Isovue- 370 were given intravenously by automated power machine injector. The images were then transferred to an independent workstation where multiplanar and three-dimensional reconstructions were performed by al. Dose reduction techniques were utilized. Findings CT Pulmonary Angiogram: Technically poor opacification of distal pulmonary arterial branches. No intraluminal filling defects are seen in the pulmonary arterial system to suggest pulmonary embolus. The thoracic aorta has normal contour, without evidence of aneurysm or dissection. Chest: Left lower lobe is mildly atelectatic, significantly improved from CT chest of March. Very small left pleural effusion is also much improved. Heart size is normal and there is no pericardial effusion. No adenopathy and no pulmonary masses are found. Images of the upper abdomen demonstrate a small nodular liver, splenomegaly, ascites, and an aneurysm of the splenic artery measuring 1.8 cm x 1.3 cm. Esophageal varices are present. Impression: 1. Negative for pulmonary embolism. 2. Small left pleural effusion and partial atelectasis of left lower lobe, improved from April 17, 2017. 3. Cirrhosis of the liver with ascites, splenomegaly, and esophageal varices. 4. Splenic arterial aneurysm, 1.[address] Scan of the Head (Without Contrast) Clinical Indication: Confusion. Technique: Multidetector helical CT was performed from the foramen magnum to the vertex, without intravenous contrast, using dose reduction technology. Soft tissue and bone windows were reviewed. Finding: No mass lesions are seen, and there is no evidence of intracranial hemorrhage or acute infarct. The ventricles and subarachnoid spaces are normal in size for this age group. Bone windows reveal no sign of fracture. The paranasal sinuses and mastoid air cells are free of fluid. Impression: Normal. EKG Interpretation: Positive for: normal sinsus rhythm EKG additional interpertation: NSR 80s. no acute ST changes. trivial ST depression lead II. no acute ST changes. Assessment & Plan Assessment: 1. syncope - likely 2/2 vasovagal response complicated by hypoglycemia while patient was having blood drawn. no evidence of orthostasis, infectious process. patient is complaining of acute on chronic RUQ abdominal pain. check limited US evaluate for thrombosis. no evidence of bleeding. CT Head neg. CTA chest without evidence of PE, pneumonia. splenic aneurysm 1.8cm noted and esophageal varices. 2. confusion - likely 2/2 hypoglycemia. improved after snack. monitor BS ACHS. NH3 is <9. continue rifaximin and lactulose. 3. hypoglycemia - monitor BS. treat if needed. pt tolerating diet and symptoms improved including confusion after oral intake. 4. generalized weakness - PT/OT. likely multifactorial including intravascular volume depletion, esld, hypoglycemia. 5. esld/etoh cirrhosis - following with transplant service. monitor cbc/cmp. 6. hyperbilirubinemia - increased from previous. monitor. 7. pleural effusion - decreasing in size. 8. anemia of chronic disease - monitor h/h. 9. thrombocytopenia - 2/2 cirrhosis. no evidence of active bleeding. monitor. 10. coagulopathy - 2/2 cirrhosis. pt without evidence of active bleeding. inr is notably high will monitor closely. 11. hyponatremia - patient likely intravascularly volume depleted with third spacing with history of aggressive diuresis and cirrhosis. patient appears dry will give low IV supplementation overnight and repeat in AM. monitor closely for volume status. 12. transaminitis - related to esld. 13. hypoalbuminemia - likely multifactorial including cirrhosis and nutritional status. dietary consult. FEN - IVF for gentle hydration. pt has been on aggressive IVF hydration and likely component of intravascular volume depletion. electrolyte replacement prn. cardiac low salt diet. PPX - SCDs. pt inr already >2 and risk of bleeding so no anticoagulation COR - FULL at this time. pt desires brother Kalia Cannon to act as proxy if needed.
[2017-06-14] MEDS ORDERED: PANTOPRAZOLE SODIUM 40 MG TAB PO SCH (09:00)
[2017-06-14] MEDS: ACAMPROSATE CALCIUM 333 MG TAB PO SCH ×2 (09:00→15:46)
[2017-06-14] MEDS ORDERED: RIFAXIMIN 550 MG TAB PO SCH (09:00)
[2017-06-14] MEDS ORDERED: FLUoxetine 20 MG CAP PO SCH (09:00)
[2017-06-14 12:23] LABS: HEMATOCRIT 22.2 % (38.0-47.0); HEMOGLOBIN 7.4 g/dL (12.6-16.3)
--- NOTE | 2017-06-14 12:44 | PDIAF ---
- Diagnosis Diagnosis: hypoglycemia Code Status: Full Code - Medication Management Discharge Medications: Medications to Continue on Transfer Levothyroxine [Synthroid 75 mcg (*)] 75 mcg PO DAILY@06 03/24/17 [Last Taken ] Acamprosate Calcium [Campral 333 MG (*)] 666 mg PO TID #180 tab 04/02/17 [Last Taken 06/13/17 12:00] FLUoxetine [Prozac 20 MG (*)] 40 mg PO DAILY #60 cap 04/20/17 [Last Taken ] Pantoprazole Sodium [Protonix 40mg (*)] 40 mg PO DAILY tab 05/08/17 [Last Taken 06/13/17] Rifaximin [Xifaxan] 550 mg PO BID #60 tab 05/08/17 [Last Taken 06/13/17 09:00] Ferrous Sulfate [Ferrous Sulf 325 MG (*)] 325 mg PO DAILY 06/13/17 [Last Taken 06/13/17] Furosemide [Lasix 20 MG (*)] 80 mg PO DAILY 06/13/17 [Last Taken 06/13/17] Herbals/Supplements -Info Only 1 ea PO DAILY 06/13/17 [Last Taken 06/13/17] Lactulose 20 gm PO TID 06/13/17 [Last Taken 06/13/17 09:00] Spironolactone 200 mg PO DAILY 06/13/17 [Last Taken 06/13/17] Discharge Medications: Refer to the Discharge Home Medication list for PRN reason. - Orders Services needed: Home Care, Registered Nurse, Certified Animal Herder Home Care Face to Face: I certify that this patient was under my care and that I had the required [id number] encounter meeting the encounter requirements on the discharge day. My findings support the fact that the patient is homebound as defined in Home Care Face to Face Continued: CMS Chapter 7 Medicare Benefits Manual 30.1.1 , The condition of the patient is such that there exists a normal inability to leave home and consequently, leaving home would require a considerable and taxing effort. Diet Recommendation: sodium restricted - Follow Up Care Current Providers and Referrals: Daniel Nava [Primary Care Provider] - As per Instructions
--- NOTE | 2017-06-14 13:14 | ASMTCASEMG ---
Living Arrangements What is your living Answers: Alone arrangement? Who do you live with? Type Of Residence What kind of residence do Answers: House you live in? Discharge Plan Comments Coordination Status Comments Notes: Pt is a 57 y/o female admitted for syncope and AMS. OT has been pt and recommending home independent. Pt is being discharged today w/ [facility]; RN and SALES REPRESENTATIVE [employer] INSURANCE. Referral made w/ [facility] and they are able to accept pt for Sunday. Pt and Dr. Rodríguez is OK w/ this. Pt requested that CM start Medicaid LTC HCBC application. CM completed the ULTC-100 and faxed it to [facility]. CM informed pt that it will take 1-4 months. Pt will have a blood transfusion before being discharged home. CM available for d/c needs. Date Signed: 06/14/2017 01:13 PM Electronically Signed By:ALEXYS Mcneal
[2017-06-14] MEDS ORDERED: FLU VACC QS 2017-18 (3YR+)/PF 0.5 ML SYR (FLUARIX QUAD) IM ONE (15:08)
[2017-06-14 15:45] VITALS: BP 108/57; PULSE 89; RESP 15; TEMP 98.4; O2SAT 94
--- NOTE | 2017-06-14 18:54 | GDS ---
[f rep st] DISCHARGE SUMMARY HISTORY OF PRESENT ILLNESS: Patient is a 57-year-old female, well known to me, with a medical history for alcoholic cirrhosis (now sober), history of GI bleed , esophageal varices, and chronic abdominal pain, who presented with syncope and confusion. She has been following up with the transplant team at [facility]. Dr. Nava is her primary GI doctor. She had her blood drawn yesterday. She felt light-headed and had a syncopal episode lasting a few seconds. She had no prodromal symptoms, including chest pain or palpitations. She did report her chronic increased work of breathing. She usually normally drinks juice prior to lab draws, but did not today. She has not been eating over the last several days because she has been busy doing appointments and texts to be evaluated by the transplant team. Denies fevers, chills, and sweats. Urinating normally. No dysuria. Denies melena and hematochezia. HOSPITAL COURSE BY PROBLEM: 1. Syncope: vasovagal in the setting of blood draws and decreased p.o. appetite. Her glucose here was borderline low at 77. She felt better after eating. Denies any chest pain or shortness of breath. EKG and troponin were negative for ischemia. D-dimer was elevated, but suspect this has to do to her chronic cirrhosis. She did have a CTA that was negative for PE. 2. Normocytic anemia: H/H dropped since being in the hospital. Transfused 1 unit RBC. 3. Compensated alcohol cirrhosis: primary teller manager is Dr. Nava, and she is being followed by Dr. Jones at the [facility] for liver transplant. She may resume her home diuretics, as well as lactulose and rifaximin. 4. History of upper GI bleed: denies any hematochezia or melena. Continue PPI. 5. Coagulopathy: INR is 2.1 secondary to her liver disease. 6. Hyponatremia: Sodium today is 133, which is at her baseline, likely due to hypervolemia in the setting of cirrhosis. 7. Hyperbilirubinemia: Initially came in with bilirubin elevated at 11 and then back down to 10.5. Abdominal ultrasound shows known cirrhosis. No evidence of stones. 8. Acute encephalopathy: Secondary to hypoglycemia as well as vasovagal syncopal episode. She is alert and oriented x3 today at her baseline. No evidence of asterixis. Afebrile. No evidence of infection. DISPOSITION: Patient is stable for discharge with home care services. MEDICATIONS: No new medications. FOLLOWUP: 1. Dr. Nava. 2. Dr. Jones with Transplant at [facility]. PHYSICAL EXAMINATION: VITAL SIGNS: Today, temperature 36.7, blood pressure 102 /54 (which is her baseline), heart rate in the 80s, respirations 16, and 95% on room air. Orthostatic's were normal. GENERAL: Sitting up in bed no acute distress. HEENT: PERRLA. EOMI. Oropharynx clear. CV: Regular rate and rhythm. No murmurs, gallops, rubs. Trace pedal edema. LUNGS: Clear to auscultation bilaterally. ABDOMEN: Mildly distended but soft. No tenderness. : No Abdul. MUSCULOSKELETAL: 5/5 upper and lower extremity strength. NEURO: 2 through 12 intact. No asterixis. PSYCH: Alert and oriented x3. /[id number]/MODL MTDD
--- NOTE | 2017-06-15 09:52 | ASDISCHSUM ---
Discharge Information Plan Status:Home with Home Health Medically Cleared to Leave:06/13/2017 Discharge Date:06/14/2017 07:10 PM CM D/C Disposition: ADT D/C Disposition:Home Health Service Projected Discharge Date:06/14/2017 11:00 AM Transportation at D/C: Discharge Delay Reason: Follow-Up Date:06/14/2017 11:00 AM Discharge Slot: Final Diagnosis: Placement Information Referral Type:*Home Health Care Services Referral ID:[id number] Provider Name:[facility] Address 1:[address] [place] [address] Address 2: City:[place] Selection Factors: State:[place] Patient Contact Information Contact Name:JACQUELYN Relationship: Address: Work Phone: City:[place] Alternate Phone: State/Zip Code:[place] Email: Financial Information Financial Class: Primary Plan Desc:MEDICAID HEALTH FIRST SPECIMEN PREPARATION ASSISTANT Primary Plan Number:[id number] Secondary Plan Desc: Secondary Plan Number: Assessment Information [facility] Initial CM Assessment Living Arrangements What is your living Answers: Alone arrangement? Who do you live with? Type Of Residence What kind of residence do Answers: House you live in? Discharge Plan Comments Coordination Status Comments Notes: Pt is a 57 y/o female admitted for syncope and AMS. OT has been pt and recommending home independent. Pt is being discharged today w/ [facility]; RN and DRYWALL TAPER HELPER. Referral made w/ [facility] and they are able to accept pt for Sunday. Pt and Dr. Rodríguez is OK w/ this. Pt requested that CM start Medicaid LT HCBC application. CM completed the ULTC-100 and faxed it to [facility]. CM informed pt that it will take 1-4 months. Pt will have a blood transfusion before being discharged home. CM available for d/c needs. Date Signed: 06/14/2017 01:13 PM Electronically Signed By:ALEXYS Mcneal Intervention Information
== END 2017-06-14 19:10 | disposition home health service (06) ==
LOC: EDUNIT# → F2W 21:53
PROVIDERS: ADMIT Internal Medicine; ATTEND Internal Medicine
PROC: 30233N0 Transfusion of Autologous Red Blood Cells into Peripheral Vein, Percutaneous Approach (ICD-10-PCS; principal; 2017-06-13)
DX: R55 Syncope and collapse (principal); D64.9 Anemia, unspecified; K70.30 Alcoholic cirrhosis of liver without ascites; D68.9 Coagulation defect, unspecified; E87.1 Hypo-osmolality and hyponatremia; G93.40 Encephalopathy, unspecified; E16.2 Hypoglycemia, unspecified
CPT/HCPCS: 36430; 70450; 71010; 71275; 76705; 90471; 93005; 97165; G0378; P9016; 80305; G0008; J2405; Q9967

== ENCOUNTER 2017-07-15 13:24 | Emergency (ER) | payer MEDICAID ==
[2017-07-15 13:31] VITALS: TEMP 98.4
--- NOTE | 2017-07-15 14:35 | EDPHY ---
H & P Stated Complaint: Cough HPI/ROS: HPI CHIEF COMPLAINT: [ ] HISTORY OF PRESENT ILLNESS: [Need 4: Location, Duration, Severity, Quality, Context, Timing Modifying Factors, Associated S&S] Past Medical History: Past Surgical History: Social History: Family History: ROS REVIEW OF SYSTEMS: A comprehensive 10 point review of systems is otherwise negative aside from elements mentioned in the history of present illness. Exam Constitutional triage nursing summary reviewed, vital signs reviewed, awake/ alert. Eyes normal conjunctivae and sclera, EOMI, PERRLA. HENT normal inspection, atraumatic, moist mucus membranes, no epistaxis, neck supple/ no meningismus, no raccoon eyes. Respiratory clear to auscultation bilaterally, normal breath sounds, no respiratory distress, no wheezing. Cardiovascular rate normal, regular rhythm, no murmur, no edema, distal pulses normal. Gastrointestinal soft, non-tender, no rebound, no guarding, normal bowel sounds, no distension, no pulsatile mass. Genitourinary no CVA tenderness. Musculoskeletal no midline vertebral tenderness, full range of motion, no calf swelling, no tenderness of extremities, no meningismus, good pulses, neurovascularly intact. Skin pink, warm, & dry, no rash, skin atraumatic. Neurologic awake, alert and oriented x 3, AAOx3, moves all 4 extremities equally, motor intact, sensory intact, CN II-XII intact, normal cerebellar, normal vision, normal speech. Psychiatric normal mood/affect. Heme/Lymph/Immune no lymphadenopathy. Differential Diagnosis: Medical Decision Making: Re-evaluation: Source: Patient - Personal History Current Tetanus Diphtheria and Acellular Pertussis (TDAP): Yes Tetanus Vaccine Date: 2015 - Medical/Surgical History Hx Asthma: No Hx Chronic Respiratory Disease: No Hx Diabetes: No Hx Cardiac Disease: No Hx Renal Disease: No Hx Cirrhosis: Yes Hx Alcoholism: Yes Hx HIV/AIDS: No Hx Splenectomy or Spleen Trauma: No Other PMH: cirrhosis, liver failure, hypothyroid, depression, anxiety. Surg- left breast benign tumor - Social History Smoking Status: Former smoker Constitutional: Initial Vital Signs Temperature (C) 36.9 C 07/15/17 13:28 Heart Rate 87 07/15/17 13:28 Respiratory Rate 18 07/15/17 13:28 Blood Pressure 137/44 H 07/15/17 13:28 O2 Sat (%) 98 07/15/17 13:28 O2 Delivery Mode Room Air Allergies/Adverse Reactions: codeine Allergy (Verified 04/17/17 09:23) Vomiting Penicillins Allergy (Verified 04/17/17 09:23) Other-Enter Comments Home Medications: Medication Instructions Recorded Levothyroxine [Synthroid 75 mcg 75 mcg PO DAILY@06 03/24/17 (*)] Acamprosate Calcium [Campral 333 666 mg PO TID #180 tab 04/02/17 MG (*)] FLUoxetine [Prozac 20 MG (*)] 40 mg PO DAILY #60 cap 04/20/17 Pantoprazole Sodium [Protonix 40mg 40 mg PO DAILY tab 05/08/17 (*)] Rifaximin [Xifaxan] 550 mg PO BID #60 tab 05/08/17 Ferrous Sulfate [Ferrous Sulf 325 325 mg PO DAILY 06/13/17 MG (*)] Furosemide [Lasix 20 MG (*)] 80 mg PO DAILY 06/13/17 Herbals/Supplements -Info Only 1 ea PO DAILY 06/13/17 Lactulose 20 gm PO TID 06/13/17 Spironolactone 200 mg PO DAILY 06/13/17 Departure - Departure Condition: Good Referrals: Daniel Nava [Primary Care Provider] - As per Instructions
--- NOTE | 2017-07-15 14:54 | EDPHY ---
H & P Time Seen by Provider: 07/15/17 14:53 HPI/ROS: CHIEF COMPLAINT: Cough HISTORY OF PRESENT ILLNESS: The patient is a 57 y/o female with a history of cirrhosis complaining of a cough since , 3 days ago. In addition to her cough she has had a runny nose and sore throat. No fever or SOB. Tolerating oral fluids well. She is undergoing liver transplant testing next week to determine her eligibility for a liver transplant. Her doctor recommended that she come to the ED today. She was hospitalized one month ago for syncope, and received a flu vaccination during this stay. Denies fever, myalgias, chest pain, paresthesias or other pertinent symptoms. REVIEW OF SYSTEMS: Aside from elements discussed in the HPI, a comprehensive 10-point review of systems was reviewed and is negative. Past Medical/Surgical History: Compensated alcohol cirrhosis, liver failure, ascites, hypothyroid, depression, anxiety, left breast surgery Social History: Brother at bedside, lives in [place], single Smoking Status: Former smoker Physical Exam: General Appearance: Alert, non-toxic, pleasant and smiling, no coughing while I' m in the room Eyes: Pupils equal and round, no conjunctival injection ENT, Mouth: Mild pharyngeal erythema. Mucous membranes moist Neck: Normal inspection, shotty adenopathy Respiratory: Lungs are clear to auscultation Cardiovascular: 2/6 systolic murmur. Regular rate and rhythm Gastrointestinal: Abdomen is soft and non-tender Neurological: A&O, nonfocal exam Skin: Warm and dry, no rash Extremities: Nontender, no pedal edema Psychiatric: Mood and affect normal Constitutional: Initial Vital Signs Temperature (C) 36.9 C 07/15/17 13:28 Heart Rate 87 07/15/17 13:28 Respiratory Rate 18 07/15/17 13:28 Blood Pressure 137/44 H 07/15/17 13:28 O2 Sat (%) 98 07/15/17 13:28 O2 Delivery Mode Room Air Allergies/Adverse Reactions: codeine Allergy (Verified 04/17/17 09:23) Vomiting Penicillins Allergy (Verified 04/17/17 09:23) Other-Enter Comments Home Medications: Medication Instructions Recorded Levothyroxine [Synthroid 75 mcg 75 mcg PO DAILY@03/24/17 (*)] Acamprosate Calcium [Campral 333 666 mg PO TID #180 tab 04/02/17 MG (*)] FLUoxetine [Prozac 20 MG (*)] 40 mg PO DAILY #60 cap 04/20/17 Pantoprazole Sodium [Protonix 40mg 40 mg PO DAILY tab 05/08/17 (*)] Rifaximin [Xifaxan] 550 mg PO BID #60 tab 05/08/17 Ferrous Sulfate [Ferrous Sulf 325 325 mg PO DAILY 06/13/17 MG (*)] Furosemide [Lasix 20 MG (*)] 80 mg PO DAILY 06/13/17 Herbals/Supplements -Info Only 1 ea PO DAILY 06/13/17 Lactulose 20 gm PO TID 06/13/17 Spironolactone 200 mg PO DAILY 06/13/17 Medical Decision Making - Diagnostics Imaging Results: CXR: NAD Imaging: I viewed and interpreted images myself ED Course/Re-evaluation: This patient presents with URI sx. She is well-appearing and clinically does not have pneumonia. CXR reveals no infiltrate. She will be treated symptomatically for a URI. Return precautions provided; patient is comfortable with this plan. Differential Diagnosis: includes though not limited to pneumonia, respiratory failure, empyema, strep pharyngitis - Data Points Microbiology Results: MICROBIOLOGY 07/15/17 15:18 Nasal, Sinus - Swab Respiratory Panel (PCR) - Final No Organism Detected Departure - Departure Disposition: Home, Routine, Self-Care Clinical Impression: Upper respiratory infection Qualifiers: URI type: unspecified viral URI Qualified Code(s): J06.9 - Acute upper respiratory infection, unspecified; B97.89 - Other viral agents as the cause of diseases classified elsewhere; B97.89 - Other viral agents as the cause of diseases classified elsewhere Condition: Good Instructions: Upper Respiratory Infection (ED) Additional Instructions: Follow up with primary care physician in 3-4 days if not improving. Return to the Emergency Department for fever, shortness of breath, or other worsening of condition. Referrals: Daniel Nava [Primary Care Provider] - As per Instructions Report Scribed for: Yahaira Rivers Report Scribed by: Viola Hodges Date of Report: 07/15/17 Time of Report: 14:54 Physician Review and Approval Statement: 07/15/17 14:54 Portions of this note were transcribed by a medical customer service representative. I personally performed a history, physical exam, medical decision making, and confirmed accuracy of information the transcribed note.
[2017-07-15 16:13] VITALS: BP 127/60; PULSE 83; RESP 16; O2SAT 99
[2017-07-15 16:25] LABS: ETHANOL SERUM < 10 mg/dL (0-10)
== END 2017-07-15 16:13 | disposition home or self-care (01) ==
DX: J06.9 Acute upper respiratory infection, unspecified (principal); Z87.891 Personal history of nicotine dependence
CPT/HCPCS: G0480